=== PATIENT | female | born 1945 | race Hispanic/Latino ===

== ENCOUNTER 2024-03-04 12:57 | Emergency (ER) | payer MEDICARE ==
[~2024-03-04] VITALS: Ht 162.6 cm; Wt 90.7 kg
[~2024-03-04 12:57] MED LIST: ASPI-1197 PO; CEFU500T67 PO; KETO.5OS OD; RAMI5CAP72 PO; SIMV40TA59 PO; TRUJEO SQ
[2024-03-04 15:52] VITALS: BP 124/49; PULSE 69; RESP 16; O2SAT 98
== END 2024-03-04 15:54 | disposition home or self-care (01) ==
LOC: EDH 12:57
DX: M54.50 Low back pain, unspecified (principal); G89.29 Other chronic pain; E11.9 Type 2 diabetes mellitus without complications; I10 Essential (primary) hypertension; Z86.73 Personal history of transient ischemic attack (TIA), and cerebral infarction without residual deficits; Z79.82 Long term (current) use of aspirin; Z79.899 Other long term (current) drug therapy; Z79.2 Long term (current) use of antibiotics; Z90.49 Acquired absence of other specified parts of digestive tract; Z98.890 Other specified postprocedural states
CPT/HCPCS: 72070; 72100

== ENCOUNTER 2025-03-12 11:23 | Inpatient (IN) | payer MEDICARE ==
[~2025-03-12] VITALS: Ht 160 cm; Wt 85.3 kg
[~2025-03-12 11:23] MED LIST changes: -CEFU500T67 PO; +CEPH500B PO; +FERR325T29 PO; +INSU300I SQ; -KETO.5OS OD; +LOSA25TA41 PO; +MECL-226 PO; -RAMI5CAP72 PO; +SITA1TAB6 PO; -TRUJEO SQ; +VIT1CAPS47 PO
--- NOTE | 2025-03-12 11:31 | ERN ---
ED Note History of Present Illness Stated Complaint: ABD PAIN Chief Complaint: Abdominal Pain Time Seen by MD: 11:27 Dictation: PATIENT IS A 79-YEAR-OLD FEMALE HERE WITH HER GRANDSON WITH COMPLAINTS OF MID GASTRIC AND LEFT LOWER QUADRANT PAIN WITH NAUSEA VOMITING ONSET YESTERDAY. NO FEVER NO CHILLS NO BACK PAIN NO CHANGE IN URINATION. SHE STATES SHE HAS A HISTORY OF A PRIOR CHOLECYSTECTOMY AND, SMALL-BOWEL OBSTRUCTIONS. HER LAST SMALL-BOWEL OBSTRUCTION AT [facility] WAS DIAGNOSED/YOUR. CHEST PAIN NO BACK PAIN Allergies: Coded Allergies: No Known Allergies (Unverified Allergy, Unknown, 10/27/22) Home Meds Active Scripts Cephalexin Monohydrate (Keflex) 500 Mg Cap, 1 CAP PO BID for 7 Days, #14 CAP 0 Refills Prov:OPAL FISCHER AGPCNP 12/18/24 Reported Medications Vit C/E/Zn/Coppr/Lutein/Zeaxan (Preservision Areds 2 Softgel) 250MG-90MG Capsule, 1 EACH PO DAILY, CAP 12/16/24 Losartan Potassium (Losartan Potassium) 25 Mg Tablet, 1 TAB PO DAILY 12/16/24 Meclizine HCl (Meclizine HCl) 12.5 Mg Tablet, 1 TAB PO BID PRN for DIZZINESS 12/16/24 Ferrous Sulfate (Ferosul) 325 Mg (65 Mg Iron) Tablet, 1 TAB PO DAILY 12/16/24 Insulin Glargine,Hum.rec.anlog (Toujeo Solostar) 300 Unit/Ml (1.5 Ml) Insuln.pen, 16 UNITS SQ HS 12/16/24 Sitagliptin Phos/Metformin HCl (Janumet 50-1,000 mg Tablet) 50 Mg-1,000 Mg Tablet, 1 TAB PO BID 12/16/24 Aspirin (Aspirin) 81 Mg Tab.chew, 81 MG PO DAILY, TAB.CHEW 10/28/22 Simvastatin (ZOCOR) 40 Mg Tablet, 20 MG PO HS, TAB 10/28/22 Past Medical History Past Medical History: Diabetes-Type II, High Cholesterol, Hypertension, Stroke, UTI Additional Past Medical Hx: vertebral compressions with kyphoplasty Surgical History: Cholecystectomy, Other, BTL, Surgical History Other: bilateal cataract surgery, 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 TOE AMPUTATION Social History: Negative, Lives with family History: Not Applicable RN Note Reviewed/Agreed w/PFSH: Yes Review of System Dictation CONSTITUTIONAL: NEGATIVE EXCEPT FOR HPI HEAD/FACE: NEGATIVE EXCEPT FOR HPI EENT: NEGATIVE EXCEPT FOR HPI RESPIRATORY: NEGATIVE EXCEPT FOR HPI GASTROINTESTINAL/ABDOMINAL: NEGATIVE EXCEPT FOR HPI PERIUMBILICAL AND LEFT LOWER QUADRANT PAIN WITH NAUSEA VOMITING GENITOURINARY: NEGATIVE EXCEPT FOR HPI MUSCULOSKELETAL: NEGATIVE EXCEPT FOR HPI INTEGUMENTARY: NEGATIVE EXCEPT FOR HPI NEUROLOGICAL/PSYCH: NEGATIVE EXCEPT FOR HPI HEMATOLOGIC/LYMPHATIC: NEGATIVE EXCEPT FOR HPI ALL SYSTEMS NEGATIVE, EXCEPT NOTED ABOVE. 13 POINT REVIEW OF SYSTEMS ASSESSED AND ALL NEGATIVE EXCEPT FOR ABOVE. Initial Vital Sign VS Vital Signs Date Time Temp Pulse Resp B/P (MAP) Pulse Ox O2 Delivery O2 Flow Rate FiO2 03/12/25 11:26 97.3 76 18 91/47 96 Room Air 0 03/12/25 11:30 21 Physical Exam Dictation VITAL SIGNS REVIEWED GENERAL APPEARANCE: ALERT, ORIENTED X 3, MODERATE ACUTE DISTRESS, WELL DEVELOPED, NOURISHED. HEAD AND FACE: NON-TRAUMATIC. EYES: PERRL, PINK CONJUNCTIVAS, EYELID NO TRAUMA, ANTERIOR CHAMBER WITH ARCUS SENILIS. EARS: PINNAS INTACT AND NO SIGNS OF TRAUMA OR ERYTHEMA EAR CANALS CLEAR AND NO DISCHARGE TM NO ERYTHEMA NOSE: NO DISCHARGE, NO BLEEDING. OROPHARYNX: MOUTH NORMAL, TONGUE PINK, PHARYNX CLEAR,NO ERYTHEMA, TONSILS NO EXUDATES, NO ABSCESSES NOTED, MUCOUS MEMBRANE MOIST NECK: SUPPLE, NON-TENDER, NO THYROMEGALY, NO MASSES, NO JVD, NO BRUITS BREAST:DEFERRED CHEST:NO TENDERNESS, NO CREPITUS, NO PARADOXICAL MOVEMENT, NO RETRACTIONS LUNGS:CLEAR, WELL-VENTILATED, SYMMETRIC, NO RALES, NO WHEEZING, NO RHONCHI, NO STRIDOR, GOOD BREATH SOUNDS BILATERALLY HEART: REGULAR RATE, REGULAR RHYTHM, NO MURMUR, NO GALLOPS VASCULAR: NO PERIPHERAL EDEMA, ABDOMEN: SOFT, VERY HYPOACTIVE BOWEL SOUNDS, TENDERNESS TO PERIUMBILICAL AND RIGHT LOWER QUADRANT. RECTAL: DEFERRED GENITAL: DEFERRED NEUROLOGICAL: NORMAL SPEECH, MOTOR FUNCTION INTACT, SENSORY FUNCTION INTACT MUSCULOSKELETAL: NECK NONTENDER, FULL RANGE OF MOTION, BACK NONTENDER, FULL RANGE OF MOTION, EXTREMITIES: NONTENDER, FULL RANGE OF MOTION SKIN: COLOR PINK, DRY, NO TURGOR, NO RASH, NO LACERATIONS, NO ABRASIONS, NO CONTUSIONS. LYMPHATIC: DEFERRED Results (Laboratory/Radiology) Laboratory/Radiology Laboratory Tests Test 8/27/25 11:55 03/12/25 13:46 White Blood Count 16.1 K/uL (4.8-10.8) H Red Blood Count 4.18 MIL/uL (4.00-5.50) Hemoglobin 11.5 g/dL (12.0-16.0) L Hematocrit 35.5 % (36-48) L Mean Corpuscular Volume 84.9 fL (79-99) Mean Corpuscular Hemoglobin 27.5 pg (27.0-33.0) Mean Corpuscular Hemoglobin Concent 32.4 g/dL (32.0-36.0) Red Cell Distribution Width 15.9 % (11.0-15.5) H Platelet Count 306 K/uL (130-400) Mean Platelet Volume 10.8 fL (7.5-10.5) H Immature Granulocyte % (Auto) 0.3 % (0-1) Neutrophils (%) (Auto) 78.1 % (40.0-77.0) H Lymphocytes (%) (Auto) 14.1 % (21.0-51.0) L Monocytes (%) (Auto) 5.5 % (3.0-13.0) Eosinophils (%) (Auto) 1.7 % (0.0-8.0) Basophils (%) (Auto) 0.3 % (0.0-5.0) Neutrophils # (Auto) 12.6 K/uL (1.8-7.7) H Lymphocytes # (Auto) 2.3 K/uL (1.0-4.8) Monocytes # (Auto) 0.9 K/uL (0.1-1.0) Eosinophils # (Auto) 0.28 K/uL (0.00-0.70) Basophils # (Auto) 0.05 K/uL (0.00-0.20) Absolute Immature Granulocyte (auto 0.05 K/uL (0-1) Nucleated Red Blood Cells 0.0 % (0.0-0.19) Prothrombin Time 10.0 SEC (9.6-11.6) Prothromb Time International Ratio 0.94 (0.85-1.15) Activated Partial Thromboplast Time 22.5 SEC (26.3-35.5) L Sodium Level 140 mmol/L (136-145) Potassium Level 4.5 mmol/L (3.5-5.1) Chloride Level 103 mmol/L (101-111) Carbon Dioxide Level 24 mmol/L (21-32) Blood Urea Nitrogen 34 mg/dL (7-18) H Creatinine 1.9 mg/dL (0.5-1.0) H Glomerular Filtration Rate Calc 27 mL/min (>90) Random Glucose 211 mg/dL (70-105) H Total Calcium 9.9 mg/dL (8.5-10.1) Troponin I High Sensitivity 6 ng/L (4-50) Lactic Acid Level 1.9 mmol/L (0.8-2.5) Pancreas: Fatty replacement of the pancreas. No focal pancreatic mass or peripancreatic collection. Kidneys: Bilateral kidneys are shrunken and atrophic with significant perinephric fat stranding, likely representing chronic renal parenchymal disease. No hydronephrosis or renal mass. Urinary Bladder: Mild anterior tenting of the anterior wall of the urinary bladder, likely due to fibrotic bands from the hernial sac. No intraluminal mass or calculus. Adrenal Glands: Both adrenal glands are normal in size and morphology. Spleen: Multiple tiny, calcified lymph nodes in the perisplenic region. Abdominal Wall and Bowel: Anterior abdominal wall weakness with herniation of abdominal wall contents through weakened abdominal wall musculature. Lower ventral abdominal wall hernia, with herniation of small bowel loops and mesentery through a defect in the posterior wall of the inguinal canal. Hernial defect measures approximately 4 cm in anteroposterior dimension. Within the hernial sac, multiple dilated small bowel loops, including proximal jejunum and proximal ileal loops, with a maximum diameter of up to 4 cm. Multiple air-fluid levels within the herniated loops and in the mid-abdomen (maximum diameter 3.2 cm), suggestive of bowel obstruction. Minimal fluid collection within the hernial sac. Bowel loops distal to the hernia sac are under distended suggesting that the point of transition is at the level of the hernia (series 5, image 54). Colonic diverticulosis. No evidence of colonic wall thickening, mass, or free air. No evidence of appendicitis. Lymph Nodes: No abnormal lymphadenopathy. Mesentery: Mesentery herniated into the sac. Vasculature: Extensive atherosclerotic changes with vessel wall calcification involving the abdominal aorta, celiac artery at its ostium, and complete calcification of the splenic artery. Additional atherosclerotic calcifications along bilateral iliac vessels and visualized lower limb arteries. Musculoskeletal: Extensive degenerative changes with multilevel reduced intervertebral disc height and ossification. The visualized section of the dorsal spine shows a pedicle screw and an absent posterior element, likely post-operative. Extensive degenerative changes in the posterior elements of the lumbar spine. No destructive bony lesion or acute fracture.IMPRESSION: 1. Incarcerated ventral lower abdominal wall hernia resulting in small bowel obstruction. 2. Bilateral atrophic kidneys with perinephric fat stranding, suggestive of chronic renal parenchymal disease. 3. Cholelithiasis. 4. Extensive atherosclerosis involving abdominal aorta and major branches. 5. Fatty replacement of pancreas. 6. Colonic diverticulosis. 7. Degenerative changes of the visualized spine. 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 ED Course ED Course Orders Procedure Category Date Status Time Cbc With Differential LAB 03/12/25 Complete 11:29 Troponin I High LAB 03/12/25 Complete Sensitivity 11:29 Urinalysis Profile LAB 03/12/25 Logged 11:29 12 Lead Ekg Tracing- EKG 03/12/25 Complete Technical 11:29 0.9%Nacl 1000ml (Ns PHA 03/12/25 Complete 1000ml) 11:30 Morphine 2mg Syg PHA 03/12/25 Complete (Morphine 2mg Syg) 11:30 Ondansetron 4mg Inj PHA 03/12/25 Complete (Zofran 4mg Inj) 11:30 Basic Metabolic Panel LAB 03/12/25 Complete 11:29 Ct Abdomen/Pelvis W/O CT 03/12/25 Resulted Contrast 11:29 Morphine 4mg Syg PHA 03/12/25 Complete (Morphine 4mg Syg) 13:30 Blood Cult CARLYLE 03/12/25 In Process 13:32 Lactic Acid LAB 03/12/25 Complete 13:32 Zosyn 3.375gm+Ns 50ml PHA 03/12/25 Complete (Zosyn 3.375gm+Ns 13:32 General Surgery CONPHYS[facility] 03/12/25 Transmitted Consult 14:17 Edm Admit Bridge Order ADM 03/12/25 Transmitted 14:35 Admit Orders ADM 03/12/25 Transmitted 14:36 Lactated Ringers PHA 03/12/25 In Process 1000ml (Lactated 15:00 Keep Patient Npo CPOE 03/12/25 Transmitted 14:36 Ondansetron 4mg Inj PHA 03/12/25 In Process (Zofran 4mg Inj) 15:00 Hydromorphone 0.5mg PHA 03/12/25 In Process Syg (Dilaudid 0.5mg 15:00 Telemetry Monitoring CPOE 03/12/25 Transmitted 14:36 Nephrology Consult [facility] 03/12/25 Transmitted 14:48 Strict I&O CPOE 03/12/25 Transmitted 14:48 Acetaminophen 325 Tab PHA 03/12/25 In Process (Tylenol 325mg Tab 15:00 Zosyn 3.375gm+Ns 50ml PHA 03/12/25 In Process (Zosyn 3.375gm+Ns 21:00 Pharmacy To Renal PHA 03/12/25 In Process Dose (Renal Dose) 15:00 Initiate REID 03/12/25 In Process Hyperglycemia Protoco 14:48 Insulin Regular, PHA 03/12/25 In Process Human 3ml (Humulin R 16:30 Initiate Hypoglycemia REID 03/12/25 In Process Protocol 14:48 Dextrose 50%-Water PHA 03/12/25 In Process (D50w) 15:00 Glucagon 1mg Kit PHA 03/12/25 In Process (Glucagon 1mg Kit) 15:00 Hemoglobin A1c LAB 03/12/25 In Process 14:48 Thyroid Stimulating LAB 03/12/25 In Process Hormone 14:48 Hepatic Function Panel LAB 03/12/25 In Process 14:48 *Nursing CPOE 03/12/25 Transmitted Communication: 14:50 Thiamine Hcl (Vitamin PHA 03/13/25 In Process B-1) 09:00 Hydralazine 20mg Inj PHA 03/12/25 In Process (Apresoline 20mg In 15:00 Scd Both Legs While CPOE 03/12/25 Transmitted In Bed 14:51 Pt And Ptt LAB 03/12/25 Complete 14:57 Urinalysis Profile LAB 03/12/25 Logged 14:57 Current Medications Medications (Trade) Dose Ordered Sig/Rafael Route PRN Reason Start Time Stop Time Status Last Admin Dose Admin Acetaminophen (TYLenol 325MG TAB) 650 mg Q6H PRN PO MILD PAIN (1-3) 03/12/25 15:00 04/11/25 14:59 Dextrose (D50w) 50 ml AD PRN IV HYPOGLYCEMIA PROTOCOL 03/12/25 15:00 04/11/25 14:59 Glucagon (Glucagon 1mg Kit) 1 mg AD PRN IM HYPOGLYCEMIA PROTOCOL 03/12/25 15:00 04/11/25 14:59 Hydralazine HCl (APRESOLine 20MG INJ) 5 mg Q6H PRN IV ADMINISTER FOR SBP > 160 03/12/25 15:00 04/11/25 14:59 Hydromorphone HCl (DiLAUDid 0.5MG INJ) 0.5 mg Q6H PRN IVP SEVERE PAIN (7-10) 03/12/25 15:00 03/17/25 14:59 Insulin Human Regular (humuLIN R 100 UNIT/ML 3ML) INSULIN SLIDING SCAL... ACHS SQ 03/12/25 16:30 04/11/25 16:29 Lactated Ringer's 1,000 ml @ 80 mls/hr [id number] IV 03/12/25 15:00 04/11/25 14:59 Morphine Sulfate (morPHINE 2MG SYG) 2 mg ONCE ONCE IVP 03/12/25 11:30 03/12/25 11:31 DC 03/12/25 12:07 Morphine Sulfate (morPHINE 4MG SYG) 4 mg ONCE ONCE IVP 03/12/25 13:30 03/12/25 13:31 DC 03/12/25 13:41 Ondansetron HCl (zoFRAN 4MG INJ) 4 mg ONCE ONCE IVP 03/12/25 11:30 03/12/25 11:31 DC 03/12/25 12:07 Ondansetron HCl (zoFRAN 4MG INJ) 4 mg Q6H PRN IVP NAUSEA/VOMITING 03/12/25 15:00 04/11/25 14:59 Piperacillin Sod/ Tazobactam Sod (Zosyn 3.375gm+NS 50ml) 3.375 gm BID IVPB 03/12/25 21:00 03/22/25 20:59 Piperacillin Sod/ Tazobactam Sod (Zosyn 3.375gm+NS 50ml) 3.375 gm ONCE STAT IVPB 03/12/25 13:32 03/12/25 13:36 DC 03/12/25 13:40 Sodium Chloride 1,000 ml @ 0 mls/hr ONCE ONCE IV 03/12/25 11:30 03/12/25 11:31 DC 03/12/25 12:07 Thiamine HCl (Vitamin B-1) 100 mg DAILY IVP 03/13/25 09:00 04/12/25 08:59 Vital Signs Date Time Temp Pulse Resp B/P (MAP) Pulse Ox O2 Delivery O2 Flow Rate FiO2 03/12/25 11:30 81 20 114/52 95 Room Air* 0 21 03/12/25 11:26 97.3 76 18 91/47 96 Room Air 0 1430/CT RESULTS SHOWS IT PATIENT HAS A VENTRAL HERNIA WITH SMALL BOWEL OBSTRUCTION. PATIENT WAS PLACED IN [place] AND HERNIA WAS REDUCED. CONSULT WAS SENT TO DR. BERTHA PERRY/GENERAL SURGEON. PATIENT WAS ADMITTED TO , AFTER DISCUSSION OF EKG LABS INTERVENTIONS. 1515/s spoke with Dr perry, she said the patient pain it in a abdominal binder and NG tube to low wall suction. This information was conveyed to HEART Score Response (Comments) Value EKG: Repolarization changes 1 Age: > 65yrs (+2) 2 Risk Factors: 3+ risk factors (+2) 2 Initial Troponin: Normal limit (0) 0 Total 5 Medical Decision Making MDM MDM: DIFFERENTIAL DIAGNOSIS: DIVERTICULITIS/APPENDICITIS/INCARCERATED HERNIA/SBO/ELECTROLYTE IMBALANCE/DEHYDRATION/ACS RATIONALE: TESTS CONSIDERED AND ORDERED SECONDARY TO SHARED DECISION MAKING INCLUDE: LABS, ECG AND RADIOLOGY PREVIOUS OUTSIDE RECORDS REVIEWED: OLD ER VISITS. RISK OF COMPLICATION AND/OR MORBIDITY OR MORTALITY OF PATIENT MANAGEMENT: NONE MEDICATIONS-PER MEDICATION RECONCILIATION NEED FOR HOSPITALIZATION: PATIENT DOES MEET CRITERIA FOR HOSPITALIZATION. WE WILL NEED CONTINUE PAIN MANAGEMENT AND SURGICAL CONSULTATION FOR UMBILICAL HERNIA NEED FOR EMERGENCY MAJOR/MINOR SURGERY: NO THERE ARE NO SOCIAL CONCERNS WITH THIS PATIENT. PRESCRIPTION DRUG MANAGEMENT PRESCRIPTIONS WILL INCLUDE SYMPTOMATIC CARE PATIENT'S PRIOR EXTERNAL MEDICAL RECORDS FROM OTHER ER VISITS WERE REVIEWED BY ME INDICATED. PRIOR TESTING AND RESULTS FROM PREVIOUS VISITS WERE REVIEWED. PRIOR TESTS WERE TAKEN INTO ACCOUNT WITH MEDICAL DECISION MAKING AND RESOURCE UTILIZATION, INDEPENDENT HISTORIAN/HISTORIANS WERE USED TO OBTAIN COMPLETE MEDIC AL HISTORY. I INDEPENDENTLY INTERPRETED THE TEST THAT WERE PERFORMED, RESULTS WERE REVIEWED BY ME AND CONSIDERED FINDINGS ON RADIOLOGY IF ORDERED. MEDICAL MANAGEMENT AND EXAMINATION INTERPRETATION DISCUSSIONS WERE HAD BY ME WITH OTHER QUALIFIED HEALTHCARE PROFESSIONALS INDICATED FOR THE PATIENT'S CARE. Procedure Procedure Dictation: 1410/PROCEDURE EXPLAINED TO PATIENT AND SON THEY AGREED TO PROCEED PATIENT PLACED IN [place] POSITION VENTRAL HERNIA WAS REDUCED WITH MANUAL PRESSURE. REDUCTION WAS FELT BY PATIENT AND ASBESTOS CLOTH INSPECTOR PATIENT STATES PAIN IS IMPROVED DX & DISP Disposition: Inpatient Decision to Admit Time: 14:19 Departure Impression: Primary Impression: Incarcerated ventral hernia Additional Impressions: Small bowel obstruction, Nausea & vomiting, [id number] kidney injury, Anemia of chronic renal failure, stage 3a, Uncontrolled diabetes mellitus Condition: Stable Referrals: SELF,REFERRAL (PCP) Time of Disposition: 14:19 I have reviewed the case, and I agree with, Diagnosis and Plan RAGHAV LANIER NP Mar 12, 2025 11:31
--- NOTE | 2025-03-12 11:57 | EKG ---
[facility] Test Date: 2025-03-12 Test Time: 11:54:04 Pat Name: KENIA ORTIZ Department: [facility] Room: 316 Gender: F Size Changer: [id number] : 1945 Requested By: RAGHAV LANIER Order Number: [id number] Reading MD: Sunday Franco Measurements Intervals [place] Rate: 77 P: 32 [place]: 142 QRS: -3 QRSD: 89 T: 105 QT: 417 QTc: 472 Interpretive Statements Sinus rhythm Probable LVH with secondary repol abnrm Compared to ECG 12/15/2024 21:44:05 No significant changes Electronically Signed On 03-13-2025 05:15:38 CDT by Sunday Franco Please click the below link to view image of tracing.
[2025-03-12 12:02] LABS: IMMATURE GRANULOCYTE ABSOLUTE 0.05 K/uL (0-1); NUCLEATED RED BLOOD CELLS 0.0 % (0.0-0.19); PLATELET COUNT (AUTO) 306 K/uL (130-400); RED BLOOD CELL COUNT(AUTO) 4.18 MIL/uL (4.00-5.50); RED CELL DISTRIBUTION WIDTH 15.9 % (11.0-15.5); WHITE BLOOD COUNT (AUTO) 16.1 K/uL (4.8-10.8)
[2025-03-12] MEDS: 0.9%NACL 1000ML 1,000 ML IV ONE (12:07)
[2025-03-12 12:13] LABS: CREATININE 1.9 mg/dL (0.5-1.0); GLOMERULAR FILTR. RATE CALC 27.0 mL/min (>90); GLUCOSE,RANDOM 211.0 mg/dL (70-105); SODIUM SERUM 140.0 mmol/L (136-145); UREA NITROGEN, BLOOD 34.0 mg/dL (7-18)
[2025-03-12] MEDS: ZOSYN 3.375GM +NS 50ML IVPB STA (13:40)
--- NOTE | 2025-03-12 13:56 | HMCIMG ---
EXAM: CT abdomen and pelvis without contrast CLINICAL HISTORY: Nausea, vomiting, history of small bowel obstruction TECHNIQUE: Axial computed tomography images of the abdomen and pelvis without intravenous contrast. CONTRAST: No IV contrast. COMPARISON: CT examination dated December 15, 2024 FINDINGS: LUNG BASES: The lung bases appear clear. No pleural effusions are seen. Atherosclerosis of the coronary arteries. Liver: Tiny calcified granuloma in segment 6 of the right lobe of the liver, measuring 1 x 2 mm. No focal hepatic lesion otherwise. No intrahepatic biliary dilatation. Gallbladder and Biliary Tract: Few hyperdense foci within the gallbladder, relatively ill-defined, suggestive of cholelithiasis (USG correlation advised for confirmation). Gallbladder wall thickness is normal. No pericholecystic free fluid. Common bile duct is normal in caliber. Pancreas: Fatty replacement of the pancreas. No focal pancreatic mass or peripancreatic collection. Kidneys: Bilateral kidneys are shrunken and atrophic with significant perinephric fat stranding, likely representing chronic renal parenchymal disease. No hydronephrosis or renal mass. Urinary Bladder: Mild anterior tenting of the anterior wall of the urinary bladder, likely due to fibrotic bands from the hernial sac. No intraluminal mass or calculus. Adrenal Glands: Both adrenal glands are normal in size and morphology. Spleen: Multiple tiny, calcified lymph nodes in the perisplenic region. Abdominal Wall and Bowel: Anterior abdominal wall weakness with herniation of abdominal wall contents through weakened abdominal wall musculature. Lower ventral abdominal wall hernia, with herniation of small bowel loops and mesentery through a defect in the posterior wall of the inguinal canal. Hernial defect measures approximately 4 cm in anteroposterior dimension. Within the hernial sac, multiple dilated small bowel loops, including proximal jejunum and proximal ileal loops, with a maximum diameter of up to 4 cm. Multiple air-fluid levels within the herniated loops and in the mid-abdomen (maximum diameter 3.2 cm), suggestive of bowel obstruction. Minimal fluid collection within the hernial sac. Bowel loops distal to the hernia sac are under distended suggesting that the point of transition is at the level of the hernia (series 5, image 54). Colonic diverticulosis. No evidence of colonic wall thickening, mass, or free air. No evidence of appendicitis. Lymph Nodes: No abnormal lymphadenopathy. Mesentery: Mesentery herniated into the sac. Vasculature: Extensive atherosclerotic changes with vessel wall calcification involving the abdominal aorta, celiac artery at its ostium, and complete calcification of the splenic artery. Additional atherosclerotic calcifications along bilateral iliac vessels and visualized lower limb arteries. Musculoskeletal: Extensive degenerative changes with multilevel reduced intervertebral disc height and ossification. The visualized section of the dorsal spine shows a pedicle screw and an absent posterior element, likely post-operative. Extensive degenerative changes in the posterior elements of the lumbar spine. No destructive bony lesion or acute fracture.IMPRESSION: 1. Incarcerated ventral lower abdominal wall hernia resulting in small bowel obstruction. 2. Bilateral atrophic kidneys with perinephric fat stranding, suggestive of chronic renal parenchymal disease. 3. Cholelithiasis. 4. Extensive atherosclerosis involving abdominal aorta and major branches. 5. Fatty replacement of pancreas. 6. Colonic diverticulosis. 7. Degenerative changes of the visualized spine. /[place]
[2025-03-12] MEDS ORDERED: DEXTROSE 50%-WATER 50 ML DISP.SYRIN IV PRN (15:00)
[2025-03-12] MEDS ORDERED: RENAL DOSE IV SCH (15:00)
[2025-03-12] MEDS ORDERED: GLUCAGON 1MG KIT 1 MG ML IM PRN (15:00)
[2025-03-12 15:12] LABS: INR 0.94 (0.85-1.15)
[2025-03-12 15:21] LABS: ASPARTATE AMINOTRANSFERASE 18.0 U/L (10-37); TOTAL PROTEIN, SERUM 7.0 g/dL (6.0-8.3)
[2025-03-12] MEDS: LACTATED RINGERS 1000ML 1,000 ML IV SCH (16:08)
--- NOTE | 2025-03-12 17:11 | HP ---
[facility] HISTORY [facility] PHYSICAL Date of Service: Mar 12, 2025 Time of Service: 17:03 HISTORY OF PRESENT ILLNESS: Date of service: 03/12/2025, patient was seen in ER hallway A, This is a 79-year-old female with history of hypertension, hyperlipidemia, type 2 diabetes mellitus, history of stroke in 1988 with residual lower extremity weakness and known history of abdominal hernia who presented to the ER for f urther evaluation of acute onset of nausea, vomiting and abdominal pain. Symptoms started earlier this morning and has been progressive. Grandson, present at bedside states that patient has had multiple episodes of vomiting this morning. Last bowel movement was yesterday. Patient has a known history of abdominal hernia and is followed by Dr. Sosa as outpatient. Due to underly ing medical comorbidities and age, patient has held off on elective repair of the hernia. Pain this morning was 6-7/10 in intensity. Per ER provider, abdominal hernia was manually reduced in the ER today. Patient had a noncontrast CT of the abdomen pelvis done which showed incarcerated ventral lower abdominal wall hernia with small-bowel obstruction. [place] [address], hemoglobin of 11.5, platelet count of 305343. BMP remarkable for sodium of 140, potassium 4.5, creatinine of 1.9, blood glucose of 211. Patient will be admitted to hospitalist service. Consultation with General surgery has been obtained with Dr. Dueñas, NG tube will be placed for decompression and patient will be started on IV fluids and IV antibiotics. We w ill see how patient progresses in the next 24-48 hours closely. REVIEW OF SYSTEMS CONSTITUTIONAL: Denies fevers, chills, or night sweats. No unintentional weight loss reported. NEUROLOGICAL: Denies headache, amaurosis fugax, motor weakness, sensory deficit, vertigo/spinning sensation, gait abnormalities, or tremors. ENT: No hearing loss, otalgia, otorrhea, rhinitis, rhinorrhea, hoarseness, or sore throat. CARDIOVASCULAR: Denies any exertional angina, dyspnea on exertion, orthopnea, paroxysmal nocturnal dyspnea, palpitations, life-threatening arrhythmias, claudication. PULMONARY: Denies any shortness of breath, cough, phlegm/sputum, hemoptysis, pleuritic chest pain. SLEEP: Denies morning headaches, daytime somnolence or napping. Denies difficulty falling asleep, staying asleep, waking from sleep. Denies knowledge of snoring. GASTROINTESTINAL: nausea, vomiting, pain around the abdominal hernia site that started today GENITOURINARY: Denies frequency, urgency, nocturia, hematuria or incontinence (Storage/Irritative symptoms.) Low urinary stream, straining to void, urinary intermittency or hesitancy, splitting of the voiding stream, terminal dribbling. ENDOCRINOLOGIC: Denies polyuria, polydipsia, polyphagia or heat/cold intolerances. HEMATOLOGIC: Denies thrombophilia/previous clots, or coagulopathy/bleeding disorders. ONCOLOGIC: Denies personal history of malignancy. DERMATOLOGIC: Denies rashes or pruritus. PSYCHIATRIC: Denies any suicidal or homicidal ideation. Denies hallucinations. PAST MEDICAL HISTORY: Hypertension, hyperlipidemia, type 2 diabetes mellitus, prior history of stroke in 1988 with residual lower extremity weakness, history of prior bowel obstruction from incarcerated abdominal hernia, history of UTI, history of chronic anemia PAST SURGICAL HISTORY: Cholecystectomy, BTL, , bilateral cataract surgery, right 4th toe amputation. PAST SOCIAL HISTORY: Denied alcohol, tobacco, illicit drug use. FAMILY HISTORY: Obesity Allergies: No known drug allergies Home medications: Family will be bringing list of home medications to be reconciled and updated, reports being on Lantus 16 units at bedtime Coded Allergies: No Known Allergies (Unverified Allergy, Unknown, 10/27/22) PHYSICAL EXAM GENERAL APPEARANCE: The patient is awake, alert, and oriented, in no acute cardiopulmonary distress. NEUROLOGICAL: Cranial nerves II-XII grossly intact. Motor is 5/5 in bilateral upper and lower extremities proximal to distal. No sensory deficits. HEENT: Face is symmetric. Pupils are equal and reactive. Extraocular movements are intact. NECK: Supple. No JVD. No thyromegaly. No submental, submandibular, pre-/postauricular, occipital or supraclavicular lymphadenopathy. CHEST: Normal chest expansion. No Telemetry. LUNGS: Absence of any rales, rhonchi or any wheezing. CARDIOVASCULAR: Regular. S1 and S2 normal. No appreciable rubs, murmurs or gallops. ABDOMEN: Soft, patient noted to have ventral hernia that appears erythematous, and mildly tender to palpation, bowel sounds are normoactive : Deferred. No [place]. EXTREMITIES: Non-edematous and not cyanotic. No clubbing. Good capillary refill. SKIN: No skin breakdown. Vital Sign (Last 24 Hours) 03/12/25 03/12/25 11:26 11:30 Temp 97.3 Pulse 81 Resp 20 B/P (MAP) 114/52 Pulse Ox 95 O2 Delivery Room Air* O2 Flow Rate 0 FiO2 21 LABS: Laboratory: Test 03/12/25 16:50 03/12/25 13:46 03/12/25 11:55 Range/Units Whole Blood Glucose 209 H 70-110 MG/DL Lactic Acid Level 1.9 0.8-2.5 mmol/L Total Bilirubin 0.5 0.2-1.0 mg/dL Direct Bilirubin 0.2 0.0-0.3 mg/dL Aspartate Amino Transf (AST/SGOT) 18 10-37 U/L Alanine Aminotransferase (ALT/SGPT) 21 12-78 U/L Alkaline Phosphatase 110 50-136 U/L Total Protein 7.0 6.0-8.3 g/dL Albumin 3.6 3.5-5.0 g/dL Thyroid Stimulating Hormone (TSH) 3.84 H 0.36-3.74 uIU/mL White Blood Count 16.1 H 4.8-10.8 K/uL Red Blood Count 4.18 4.00-5.50 MIL/uL Hemoglobin 11.5 L 12.0-16.0 g/dL Hematocrit 35.5 L 36-48 % Mean Corpuscular Volume 84.9 79-99 fL Mean Corpuscular Hemoglobin 27.5 27.0-33.0 pg Mean Corpuscular Hemoglobin Concent 32.4 32.0-36.0 g/dL Red Cell Distribution Width 15.9 H 11.0-15.5 % Platelet Count 306 130-400 K/uL Mean Platelet Volume 10.8 H 7.5-10.5 fL Immature Granulocyte % (Auto) 0.3 0-1 % Neutrophils (%) (Auto) 78.1 H 40.0-77.0 % Lymphocytes (%) (Auto) 14.1 L 21.0-51.0 % Monocytes (%) (Auto) 5.5 3.0-13.0 % Eosinophils (%) (Auto) 1.7 0.0-8.0 % Basophils (%) (Auto) 0.3 0.0-5.0 % Neutrophils # (Auto) 12.6 H 1.8-7.7 K/uL Lymphocytes # (Auto) 2.3 1.0-4.8 K/uL Monocytes # (Auto) 0.9 0.1-1.0 K/uL Eosinophils # (Auto) 0.28 0.00-0.70 K/uL Basophils # (Auto) 0.05 0.00-0.20 K/uL Absolute Immature Granulocyte (auto 0.05 0-1 K/uL Nucleated Red Blood Cells 0.0 0.0-0.19 % Prothrombin Time 10.0 9.6-11.6 SEC Prothromb Time International Ratio 0.94 0.85-1.15 Activated Partial Thromboplast Time 22.5 L 26.3-35.5 SEC Sodium Level 140 136-145 mmol/L Potassium Level 4.5 3.5-5.1 mmol/L Chloride Level 103 101-111 mmol/L Carbon Dioxide Level 24 21-32 mmol/L Blood Urea Nitrogen 34 H 7-18 mg/dL Creatinine 1.9 H 0.5-1.0 mg/dL Glomerular Filtration Rate Calc 27 >90 mL/min Random Glucose 211 H 70-105 mg/dL Hemoglobin A1c 7.4 H 4.0-6.0 % Estimated Average Glucose (eAG) 166 H 70-126 mg/dL Total Calcium 9.9 8.5-10.1 mg/dL Troponin I High Sensitivity 6 4-50 ng/L Current Medications Medications (Trade) Dose Ordered Sig/Rafael Route PRN Reason Start Time Stop Time Status Last Admin Dose Admin Acetaminophen (TYLenol 325MG TAB) 650 mg Q6H PRN PO MILD PAIN (1-3) 03/12/25 15:00 04/11/25 14:59 Dextrose (D50w) 50 ml AD PRN IV HYPOGLYCEMIA PROTOCOL 03/12/25 15:00 04/11/25 14:59 Glucagon (Glucagon 1mg Kit) 1 mg AD PRN IM HYPOGLYCEMIA PROTOCOL 03/12/25 15:00 04/11/25 14:59 Hydralazine HCl (APRESOLine 20MG INJ) 5 mg Q6H PRN IV ADMINISTER FOR SBP > 160 03/12/25 15:00 04/11/25 14:59 Hydromorphone HCl (DiLAUDid 0.5MG INJ) 0.5 mg Q6H PRN IVP SEVERE PAIN (7-10) 03/12/25 15:00 03/17/25 14:59 Insulin Human Regular (humuLIN R 100 UNIT/ML 3ML) INSULIN SLIDING SCAL... ACHS SQ 03/12/25 16:30 04/11/25 16:29 Lactated Ringer's 1,000 ml @ 80 mls/hr [id number] IV 03/12/25 15:00 04/11/25 14:59 03/12/25 16:08 80 MLS/HR Ondansetron HCl (zoFRAN 4MG INJ) 4 mg Q6H PRN IVP NAUSEA/VOMITING 03/12/25 15:00 04/11/25 14:59 Piperacillin Sod/ Tazobactam Sod (Zosyn 3.375gm+NS 50ml) 3.375 gm BID IVPB 03/12/25 21:00 03/22/25 20:59 Piperacillin Sod/ Tazobactam Sod (Zosyn 3.375gm+NS 50ml) 3.375 gm ONCE STAT IVPB 03/12/25 13:32 03/12/25 13:36 DC 03/12/25 13:40 3.375 GM Thiamine HCl (Vitamin B-1) 100 mg DAILY IVP 03/13/25 09:00 04/12/25 08:59 DIAGNOSTICS / RADIOLOGY: PROCEDURE: ABD PEL WO - CT ABDOMEN/PELVIS W/O CONTRAST ADDENDUM REPORT ADDENDUM: Results were shared by telephone at 15:00 pm on 03/12/25 and acknowledged by Bairon Cannon. /[place] EXAM: CT abdomen and pelvis without contrast CLINICAL HISTORY: Nausea, vomiting, history of small bowel obstruction TECHNIQUE: Axial computed tomography images of the abdomen and pelvis without intravenous contrast. CONTRAST: No IV contrast. COMPARISON: CT examination dated December 15, 2024 FINDINGS: LUNG BASES: The lung bases appear clear. No pleural effusions are seen. Atherosclerosis of the coronary arteries. Liver: Tiny calcified granuloma in segment 6 of the right lobe of the liver, measuring 1 x 2 mm. No focal hepatic lesion otherwise. No intrahepatic biliary dilatation. Gallbladder and Biliary Tract: Few hyperdense foci within the gallbladder, relatively ill-defined, suggestive of cholelithiasis (USG correlation advised for confirmation). Gallbladder wall thickness is normal. No pericholecystic free fluid. Common bile duct is normal in caliber. Pancreas: Fatty replacement of the pancreas. No focal pancreatic mass or peripancreatic collection. Kidneys: Bilateral kidneys are shrunken and atrophic with significant perinephric fat stranding, likely representing chronic renal parenchymal disease. No hydronephrosis or renal mass. Urinary Bladder: Mild anterior tenting of the anterior wall of the urinary bladder, likely due to fibrotic bands from the hernial sac. No intraluminal mass or calculus. Adrenal Glands: Both adrenal glands are normal in size and morphology. Spleen: Multiple tiny, calcified lymph nodes in the perisplenic region. Abdominal Wall and Bowel: Anterior abdominal wall weakness with herniation of abdominal wall contents through weakened abdominal wall musculature. Lower ventral abdominal wall hernia, with herniation of small bowel loops and mesentery through a defect in the posterior wall of the inguinal canal. Hernial defect measures approximately 4 cm in anteroposterior dimension. Within the hernial sac, multiple dilated small bowel loops, including proximal jejunum and proximal ileal loops, with a maximum diameter of up to 4 cm. Multiple air-fluid levels within the herniated loops and in the mid-abdomen (maximum diameter 3.2 cm), suggestive of bowel obstruction. Minimal fluid collection within the hernial sac. Bowel loops distal to the hernia sac are under distended suggesting that the point of transition is at the level of the hernia (series 5, image 54). Colonic diverticulosis. No evidence of colonic wall thickening, mass, or free air. No evidence of appendicitis. Lymph Nodes: No abnormal lymphadenopathy. Mesentery: Mesentery herniated into the sac. Vasculature: Extensive atherosclerotic changes with vessel wall calcification involving the abdominal aorta, celiac artery at its ostium, and complete calcification of the splenic artery. Additional atherosclerotic calcifications along bilateral iliac vessels and visualized lower limb arteries. Musculoskeletal: Extensive degenerative changes with multilevel reduced intervertebral disc height and ossification. The visualized section of the dorsal spine shows a pedicle screw and an absent posterior element, likely post-operative. Extensive degenerative changes in the posterior elements of the lumbar spine. No destructive bony lesion or acute fracture.IMPRESSION: 1. Incarcerated ventral lower abdominal wall hernia resulting in small bowel obstruction. 2. Bilateral atrophic kidneys with perinephric fat stranding, suggestive of chronic renal parenchymal disease. 3. Cholelithiasis. 4. Extensive atherosclerosis involving abdominal aorta and major branches. 5. Fatty replacement of pancreas. 6. Colonic diverticulosis. 7. Degenerative changes of the visualized spine. /[place] ASSESSMENT: Small-bowel obstruction secondary to incarcerated lower abdominal wall hernia, POA Leukocytosis, POA ЮЛИЯ on CKD, POA Dehydration, POA Poor vascular access, POA Prior history of bowel obstruction secondary to abdominal hernia, POA History of hypertension, POA Hyperlipidemia, POA Type 2 diabetes mellitus, POA Prior history of stroke in 1988 with residual lower extremity weakness, POA History of vertebral compression fracture with prior history of kyphoplasty, POA PLAN: Patient will be admitted to cardiac telemetry floor Patient will be kept strictly NPO NG tube will be placed to low intermittent wall suction We will start patient on LR at 80 mL/hours We will keep patient on IV Zosyn empirically, we will follow up in urinalysis to rule out active UTI Midline will be placed to as patient is poor vascular access Consultation with Dr. Dueñas requested, manual reduction of the hernia was attempted in the ER with improvement of abdominal pain per patient We will keep patient on GI prophylaxis Protonix Patient will be placed on abdominal binder We will see how patient progresses in the next 24-48 hours, we will monitor hernia site closely, we will assess for resolution of bowel obstruction, abdominal x-ray will be repeated in the morning All labs will repeated in the morning, we will monitor renal function closely, avoid any NSAIDs or contrast, all medications will be renally dosed Date of service: 03/12/2025 Plan of care was discussed with patient and grandson at bedside, Alec Stewart MD Advanced Care Planning: Which of the following were discussed: Hospice care: Yes __ No _X_ Therapeutic options: Yes _X_ No __ Advance directives: Yes __X No __ Other discussions: Discussed with who?: Patient Voluntary nature of this service was explained to the patient? Yes _x_ No __ Amount of time spent: 20 minutes ALEC STEWART MD Mar 12, 2025 17:11
--- NOTE | 2025-03-12 17:28 | HMCIMG ---
EXAM: CR Chest, 2 View. CLINICAL HISTORY: VERIFY NG TUBE PLACEMENT COMPARISON: None provided. FINDINGS: LUNGS: No active infiltrate PLEURAL SPACES: No evidence of pleural effusion or pneumothorax. MEDIASTINUM: Cardiac silhouette prominent BONES: No aggressive appearing osseous lesion seen. MISCELLANEOUS: Nasogastric tube below diaphragm. Distal tip not imaged IMPRESSION: 1. Cardiac silhouette prominent 2. No active infiltrate 3. Nasogastric tube below diaphragm. Distal tip not imaged /[place]
--- NOTE | 2025-03-12 17:41 | CONS ---
CONSULT NOTE: Consulting physician: ER Consulting service: General surgery Reason for consultation: Incarcerated umbilical hernia History of present illness: This is a 79-year-old female with a medical history listed below that has been consulted to surgery for concerns of incarcerated umbilical hernia. Hernia initially reduced ER. Patient reporting significant improvement of pain. On physical exam reduction appears to be partial but pain significantly improved according to patient. Patient is still reporting no flatus. Patient reports a 30 history of abdominal hernia noted. NG tube currently pending by nursing for placement. On admission patient with a white count of 16 with a hemoglobin 11.5. Patient currently NPO. Patient is unsure last bowel movement. Patient reports multiple episodes where discomfort from hernia noted. Medical history: Hypertension, hyperlipidemia, type 2 diabetes mellitus, prior history of stroke in 1988 with residual lower extremity weakness, history of prior bowel obstruction from incarcerated abdominal hernia, history of UTI, history of chronic anemia PAST SURGICAL HISTORY: Cholecystectomy, BTL, , bilateral cataract surgery, right 4th toe amputation. PAST SOCIAL HISTORY: Denied alcohol, tobacco, illicit drug use. FAMILY HISTORY: Obesity Review of systems: General: No Fever, No Chills, No Night Sweats, No Fatigue, No Malaise, No Appetite, No Other HEENT: No Head Aches, No Visual Changes, No Eye Pain, No Ear Pain, No Dysphasia, No Sinus Congestion, No Post Nasal Drip, No Sore Throat, No Other Pulmonary: No Dyspnea, No Cough, No Pleuritic Chest Pain, No Other Cardiovascular: No: Chest Pain, Palpitations, Orthopnea, Paroxysmal No Dyspnea, Edema, Lt Headedness, Other Gastrointestinal: No: Nausea, Vomiting, Diarrhea, Constipation, Melena, Hematochezia, Other Genitourinary: No Dysuria, No Frequency, No Incontinence, No Hematuria, No Retention, No Other Musculoskeletal: No: other, neck pain, shoulder pain, arm pain, back pain, hand pain, leg pain, foot pain Skin: No Urticaria, No Rash, No Other Neurological: No: Weakness, Numbness, Incoordination, Change in speech, Confusion, Seizures, Other Physical exam: General: Awake alert and oriented Heart: Regular rate and rhythm} Lungs: [Clear to auscultation no distress Abdomen: Distended with a umbilical hernia nontender possibly still incarcerated IMPRESSION: 1. Incarcerated ventral lower abdominal wall hernia resulting in small bowel obstruction. 2. Bilateral atrophic kidneys with perinephric fat stranding, suggestive of chronic renal parenchymal disease. 3. Cholelithiasis. 4. Extensive atherosclerosis involving abdominal aorta and major branches. 5. Fatty replacement of pancreas. 6. Colonic diverticulosis. 7. Degenerative changes of the visualized spine. Assessment: This is a 79-year-old female with concerns of incarcerated umbilical hernia Plan: This point in time with partial reduction we will continue with conservative management NG tube to be placed in place to LIS Patient to be made NPO Await for bowel function to return If surgical intervention needed patient will need cardiac clearance Dr. Dueñas has been updated in patient's status and surgical team will follow patient closely. Thank you for the consultation MILI SIGALA Jr. Mar 12, 2025 17:41
[2025-03-12 20:00] VITALS: BP 116/44; PULSE 97; RESP 19; TEMP 97.8
[2025-03-12] MEDS: ZOSYN 3.375GM +NS 50ML IVPB SCH (20:08)
[2025-03-12 22:35] VITALS: BP 120/61; PULSE 98; RESP 17; TEMP 97.7
[2025-03-12 22:50] VITALS: BP 135/55; PULSE 80; RESP 18; TEMP 98
[2025-03-13] VITALS (9 sets, daily range): BP systolic 114–145; BP diastolic 50–62; PULSE 70–81; RESP 16–20; TEMP 97.6–98.2; O2SAT 93–94
[2025-03-13] MEDS ORDERED: SIMV-43 PO (03:36)
[2025-03-13 06:39] LABS: ASPARTATE AMINOTRANSFERASE 18.0 U/L (10-37); CREATININE 1.4 mg/dL (0.5-1.0); GLOMERULAR FILTR. RATE CALC 39.0 mL/min (>90); GLUCOSE,RANDOM 156.0 mg/dL (70-105); PHOSPHORUS 3.6 mg/dL (2.5-4.9); SODIUM SERUM 141.0 mmol/L (136-145); TOTAL PROTEIN, SERUM 6.2 g/dL (6.0-8.3); UREA NITROGEN, BLOOD 33.0 mg/dL (7-18)
[2025-03-13 07:46] LABS: IMMATURE GRANULOCYTE ABSOLUTE 0.02 K/uL (0-1); NUCLEATED RED BLOOD CELLS 0.0 % (0.0-0.19); PLATELET COUNT (AUTO) 260 K/uL (130-400); RED BLOOD CELL COUNT(AUTO) 3.44 MIL/uL (4.00-5.50); RED CELL DISTRIBUTION WIDTH 15.8 % (11.0-15.5); WHITE BLOOD COUNT (AUTO) 10.2 K/uL (4.8-10.8)
[2025-03-13] MEDS: THIAMINE HCL 100 MG/ML 2ML VIAL IVP SCH (08:19)
--- NOTE | 2025-03-13 09:01 | CONS ---
NEPHROLOGY CONSULTATION REASON FOR CONSULTATION: Renal failure. This patient has elevated BUN and creatinine. HISTORY OF PRESENT ILLNESS: This patient has multiple medical problems. The patient is 79-year-old lady who has history of type 2 diabetes, hypertension, hyperlipidemia, previous stroke, right-sided weakness, abdominal hernia. The patient is admitted with nausea, vomiting, abdominal pain, suspected intestinal obstruction. The patient has elevated BUN and creatinine. The patient has mild leukocytosis and multiple other comorbidities. PAST MEDICAL HISTORY: Significant for as above with diabetes, hypertension, hyperlipidemia, stroke, intestinal obstruction in the past, UTI, anemia. PAST SURGICAL HISTORY: Tubal ligation, , cataract surgery, toe amputation, cholecystectomy. SOCIAL HISTORY: No smoking, alcohol, or drug abuse reported. FAMILY HISTORY: Unremarkable for present contacts. ALLERGIES: No allergies. HOME MEDICATIONS: As listed. REVIEW OF SYSTEMS: CONSTITUTIONAL: The patient has been weak with no fever, chills, or rigors. HEENT: With no headache. No oral ulcers, sore throat or difficulty swallowing. RESPIRATORY: With no cough, expectoration, hemoptysis or pleuritic pain. CARDIOVASCULAR: Has shortness of breath. No orthopnea or PND. GASTROINTESTINAL: Negative for nausea, vomiting or diarrhea reported. GENITOURINARY: Negative for dysuria or hematuria. DERMATOLOGIC: No rashes or pruritus. NEUROLOGIC: No seizure or syncope. ENDOCRINE: No polyuria, polydipsia, or polyphagia. PSYCHIATRIC: Negative for anxiety, depression or hallucination. NEUROLOGIC: Previous stroke reported. Other systemic review is unchanged. PHYSICAL EXAMINATION: GENERAL: Elderly lying in bed. No other distress or deformities. VITAL SIGNS: Blood pressure is 114/52. Pulse is 81. Respiratory rate is 20. HEENT: Head is atraumatic, normocephalic. Pupils are round and reactive. Sclerae anicteric. Conjunctivae not pale. Oral mucosa is not dry. NECK: Supple with no masses or bruits. Thyroid is palpable. Neck has no bruits. CHEST: Shows equal to thoracic percussion note being resonant in all areas. CARDIAC: Regular rhythm. No rub. No S3 or S4. No parasternal heave. Apical beat is not localized. ABDOMEN: With no guarding, tenderness. Bowel sounds normoactive. No free fluid. EXTREMITIES: With no edema. No cyanosis or clubbing. BACK: No CVA tenderness or back deformities. NEUROLOGIC: Awake, alert, nonfocal. No cranial nerve palsy. LABORATORY DATA: We have reviewed available labs in detail. Labs have shown elevated creatinine of 1.9 and BUN of 40. Old records reviewed. labs interpreted_ personally reviewed. DIAGNOSTIC STUDIES: CT scan has been done without any IV contrast, findings of hernia. Chest x-ray has been reviewed and CT scan. Calcified granuloma in the right lobe of the liver. Some atrophic kidneys. No lymphadenopathy. Hernia was enlarged and the patient has cholelithiasis. Old records have been reviewed. Imaging studies personally reviewed. PROBLEMS: Include: * The patient has acute renal failure. * The patient has intestinal obstruction. * Underlying diabetic nephropathy. * Underlying hypertension. * Anemia. * Leukocytosis. * Underlying hyperlipidemia. * History of stroke. * Small bowel obstruction. * Peripheral vascular disease. * Residual weakness because of stroke and back pain before. PLAN: * At this time, the patient is being admitted. * Urinalysis. * IV hydration. * Urine electrolytes and osmolarity. * Follow up CBC, CMP. * Labs, x-rays, and imaging studies personally reviewed and interpreted. * Nonsteroidal drug to be avoided. * Medication dosage to be adjusted. * The patient's IV contrast should be avoided as far as possible. * The patient will have a followup on urine output, electrolyte, renal function and overall status. * IV Dilaudid for severe pain 0.5 mg every 6 hours. * We have discussed with other team physicians and we have reviewed the external and old records in detail. * Condition is critical and guarded. * We will have close followup. * NG tube has been placed. * Surgical consult has been ordered and please avoid other nephrotoxic insults. Doses of medicine should be adjusted. * Avoid nephrotoxic antibiotics. Thank you for this challenging patient. TID: [id number] RECEIPT: [id number] [facility]
--- NOTE | 2025-03-13 09:11 | PN ---
[facility] PROGRESS NOTE Date of Service: Mar 13, 2025 Time of Service: 09:02 SUBJECTIVE: [ ] This is a 79-year-old female with history of hypertension, hyperlipidemia, type 2 diabetes mellitus, history of stroke in 1988 with residual lower extremity weakness and known history of abdominal hernia who presented to the ER for further evaluation of acute onset of nausea, vomiting and abdominal pain. Symptoms started earlier this morning and has been progressive. Grandson, present at bedside states that patient has had multiple episodes of vomiting this morning. Last bowel movement was yesterday. Patient has a known history of abdominal hernia and is followed by Dr. Sosa as outpatient. Due to underlying medical comorbidities and age, patient has held off on elective repair of the hernia. 03/13/25 the patient was evaluated by surgical services: they will continue with conservative management: Surgeon remove NG tube we will start patient on diet we will be monitored. Patient appears chronically ill, no family at bedside REVIEW OF SYSTEMS CONSTITUTIONAL: Denies fevers, chills, or night sweats. No unintentional weight loss reported. NEUROLOGICAL: Denies headache, amaurosis fugax, motor weakness, sensory deficit, vertigo/spinning sensation, gait abnormalities, or tremors. ENT: No hearing loss, otalgia, otorrhea, rhinitis, rhinorrhea, hoarseness, or sore throat. CARDIOVASCULAR: Denies any exertional angina, dyspnea on exertion, orthopnea, paroxysmal nocturnal dyspnea, palpitations, life-threatening arrhythmias, claudication. PULMONARY: Denies any shortness of breath, cough, phlegm/sputum, hemoptysis, pleuritic chest pain. SLEEP: Denies morning headaches, daytime somnolence or napping. Denies difficulty falling asleep, staying asleep, waking from sleep. Denies knowledge of snoring. GASTROINTESTINAL: nausea, vomiting, pain around the abdominal hernia site that started today GENITOURINARY: Denies frequency, urgency, nocturia, hematuria or incontinence (Storage/Irritative symptoms.) Low urinary stream, straining to void, urinary intermittency or hesitancy, splitting of the voiding stream, terminal dribbling. ENDOCRINOLOGIC: Denies polyuria, polydipsia, polyphagia or heat/cold intolerances. HEMATOLOGIC: Denies thrombophilia/previous clots, or coagulopathy/bleeding disorders. ONCOLOGIC: Denies personal history of malignancy. DERMATOLOGIC: Denies rashes or pruritus. PSYCHIATRIC: Denies any suicidal or homicidal ideation. Denies hallucinations. PHYSICAL EXAM GENERAL APPEARANCE: The patient is awake, alert, and oriented, in no acute cardiopulmonary distress. NEUROLOGICAL: Cranial nerves II-XII grossly intact. Motor is 5/5 in bilateral upper and lower extremities proximal to distal. No sensory deficits. HEENT: Face is symmetric. Pupils are equal and reactive. Extraocular movements are intact. NECK: Supple. No JVD. No thyromegaly. No submental, submandibular, pre-/posta uricular, occipital or supraclavicular lymphadenopathy. CHEST: Normal chest expansion. No Telemetry. LUNGS: Absence of any rales, rhonchi or any wheezing. CARDIOVASCULAR: Regular. S1 and S2 normal. No appreciable rubs, murmurs or gallops. ABDOMEN: Soft, patient noted to have ventral hernia that appears erythematous, and mildly tender to palpation, bowel sounds are normoactive : Deferred. No Boswell. EXTREMITIES: Non-edematous and not cyanotic. No clubbing. Good capillary refill. SKIN: No skin breakdown. Vital Signs (last 8hr) Date Time Temp Pulse Resp B/P (MAP) Pulse Ox O2 Delivery O2 Flow Rate FiO2 03/13/25 08:00 98.1 78 17 141/52 91 Room Air 03/13/25 04:25 97.9 77 20 126/56 95 Room Air LABS: Laboratory: Test 03/13/25 06:12 03/13/25 05:28 03/12/25 13:46 03/12/25 11:55 Range/Units White Blood Count 10.2 # 4.8-10.8 K/uL Red Blood Count 3.44 L 4.00-5.50 MIL/uL Hemoglobin 9.4 L 12.0-16.0 g/dL Hematocrit 28.8 L 36-48 % Mean Corpuscular Volume 83.7 79-99 fL Mean Corpuscular Hemoglobin 27.3 27.0-33.0 pg Mean Corpuscular Hemoglobin Concent 32.6 32.0-36.0 g/dL Red Cell Distribution Width 15.8 H 11.0-15.5 % Platelet Count 260 130-400 K/uL Mean Platelet Volume 11.2 H 7.5-10.5 fL Immature Granulocyte % (Auto) 0.2 0-1 % Neutrophils (%) (Auto) 70.4 40.0-77.0 % Lymphocytes (%) (Auto) 20.1 L 21.0-51.0 % Monocytes (%) (Auto) 8.2 3.0-13.0 % Eosinophils (%) (Auto) 0.7 0.0-8.0 % Basophils (%) (Auto) 0.4 0.0-5.0 % Neutrophils # (Auto) 7.2 1.8-7.7 K/uL Lymphocytes # (Auto) 2.1 1.0-4.8 K/uL Monocytes # (Auto) 0.8 0.1-1.0 K/uL Eosinophils # (Auto) 0.07 0.00-0.70 K/uL Basophils # (Auto) 0.04 0.00-0.20 K/uL Absolute Immature Granulocyte (auto 0.02 0-1 K/uL Nucleated Red Blood Cells 0.0 0.0-0.19 % Sodium Level 141 136-145 mmol/L Potassium Level 4.3 3.5-5.1 mmol/L Chloride Level 108 101-111 mmol/L Carbon Dioxide Level 23 21-32 mmol/L Blood Urea Nitrogen 33 H 7-18 mg/dL Creatinine 1.4 H 0.5-1.0 mg/dL Glomerular Filtration Rate Calc 39 >90 mL/min Random Glucose 156 H 70-105 mg/dL Total Calcium 8.8 8.5-10.1 mg/dL Phosphorus Level 3.6 2.5-4.9 mg/dL Magnesium Level 1.90 1.80-2.40 mg/dL Total Bilirubin 0.9 # 0.2-1.0 mg/dL Aspartate Amino Transf (AST/SGOT) 18 10-37 U/L Alanine Aminotransferase (ALT/SGPT) 12 # 12-78 U/L Alkaline Phosphatase 82 # 50-136 U/L Total Protein 6.2 6.0-8.3 g/dL Albumin 3.1 L 3.5-5.0 g/dL Whole Blood Glucose 143 H 70-110 MG/DL Lactic Acid Level 1.9 0.8-2.5 mmol/L Direct Bilirubin 0.2 0.0-0.3 mg/dL Thyroid Stimulating Hormone (TSH) 3.84 H 0.36-3.74 uIU/mL Prothrombin Time 10.0 9.6-11.6 SEC Prothromb Time International Ratio 0.94 0.85-1.15 Activated Partial Thromboplast Time 22.5 L 26.3-35.5 SEC Hemoglobin A1c 7.4 H 4.0-6.0 % Estimated Average Glucose (eAG) 166 H 70-126 mg/dL Troponin I High Sensitivity 6 4-50 ng/L Current Medications Medications (Trade) Dose Ordered Sig/Rafael Route PRN Reason Start Time Stop Time Status Last Admin Dose Admin Acetaminophen (TYLenol 325MG TAB) 650 mg Q6H PRN PO MILD PAIN (1-3) 03/12/25 15:00 04/11/25 14:59 Dextrose (D50w) 50 ml AD PRN IV HYPOGLYCEMIA PROTOCOL 03/12/25 15:00 04/11/25 14:59 Glucagon (Glucagon 1mg Kit) 1 mg AD PRN IM HYPOGLYCEMIA PROTOCOL 03/12/25 15:00 04/11/25 14:59 Heparin Sodium (Porcine) (HEParin 5,000 UNIT VIAL) 5,000 unit Q12H SQ 03/13/25 09:00 04/12/25 08:59 03/13/25 08:19 5,000 UNIT Hydralazine HCl (APRESOLine 20MG INJ) 5 mg Q6H PRN IV ADMINISTER FOR SBP > 160 03/12/25 15:00 04/11/25 14:59 Hydromorphone HCl (DiLAUDid 0.5MG INJ) 0.5 mg Q6H PRN IVP SEVERE PAIN (7-10) 03/12/25 15:00 03/17/25 14:59 Insulin Human Regular (humuLIN R 100 UNIT/ML 3ML) INSULIN SLIDING SCAL... ACHS SQ 03/12/25 16:30 04/11/25 16:29 03/12/25 17:05 3 UNIT Lactated Ringer's 1,000 ml @ 80 mls/hr [id number] IV 03/12/25 15:00 04/11/25 14:59 03/13/25 08:24 80 MLS/HR Ondansetron HCl (zoFRAN 4MG INJ) 4 mg Q6H PRN IVP NAUSEA/VOMITING 03/12/25 15:00 04/11/25 14:59 03/12/25 23:29 4 MG Pantoprazole Sodium (PROTonix 40MG INJ) 40 mg Q24H IVP 03/12/25 17:00 04/11/25 16:59 03/12/25 17:30 40 MG Piperacillin Sod/ Tazobactam Sod (Zosyn 3.375gm+NS 50ml) 3.375 gm BID IVPB 03/12/25 21:00 03/22/25 20:59 03/13/25 08:19 3.375 GM Piperacillin Sod/ Tazobactam Sod (Zosyn 3.375gm+NS 50ml) 3.375 gm ONCE STAT IVPB 03/12/25 13:32 03/12/25 13:36 DC 03/12/25 13:40 3.375 GM Thiamine HCl (Vitamin B-1) 100 mg DAILY IVP 03/13/25 09:00 04/12/25 08:59 03/13/25 08:19 100 MG DIAGNOSTICS / RADIOLOGY: [ ] ASSESSMENT: Small-bowel obstruction secondary to incarcerated lower abdominal wall hernia, POA Leukocytosis, POA resolved ЮЛИЯ on CKD, POA improving Dehydration, POA Poor vascular access, POA Prior history of bowel obstruction secondary to abdominal hernia, POA History of hypertension, POA Hyperlipidemia, POA Type 2 diabetes mellitus, POA Prior history of stroke in 1988 with residual lower extremity weakness, POA History of vertebral compression fracture with prior history of kyphoplasty, POA PLAN: admit: medical surgical floor with Tele assessment consultant: General Surgeon Diet: Urgent started patient on clear liquid diet and we will be monitored Aspiration precautions head of the bed at 45 continue with abd. binder Procedure: at this time conservative management: IVF: LR at 80 ml/hr Antibiotic; IV Zosyn empirically Microbiology: Urine culture in process. Labs in am ongoing surveillance of electrolyte derangement: replaced as per protocol GI prophylaxis Protonix all questions answered ATTESTATION BY PHYSICIAN I have seen and examined the patient. I reviewed the documentation, medical decision making, and treatment plan as noted by the mid-level provider above. I agree with the findings and plan of care. ROGE BRAXTON MD, ELIZABETH NP Mar 13, 2025 09:11
--- NOTE | 2025-03-13 09:42 | NUR ---
DCP:HOME Pt currently lives at home with her son Luis Galeas [phone]. Pt does have a cane and walker that she uses to ambulate. Pt does have [facility] home [facility] that visit her once a week to check her vitals. Pt states that she is able to complete ADLs independently. PCP is Dr. Alexander Watkins and uses [facility] for any RX needs. At PR pt will want to go home and family can assist with transportation. Addendum: 03/13/25 at 0944 by REGINO NIEVES SS Amended: Links added.
--- NOTE | 2025-03-13 10:00 | NUR ---
ROUNDS ANGELA GARCES ROUNDED AT BEDSIDE. VORB DISCONTINUE NG TUBE AND START PATIENT ON CLEAR LIQUID DIET. PER MILI, WILL CONSULT WITH MD REGARDING OUTPATIENT SURGERY. NO FURTHER ORDERS GIVEN. WILL CONTINUE TO MONITOR.
--- NOTE | 2025-03-13 11:00 | PN ---
This is a 79-year-old female consulted to surgery for concerns of incarcerated hernia Interval history: This 79-year-old female seen in her room No abdominal pain reported today Patient reports large bowel movement overnight and in the morning NG in place with minimal output Patient reports she feels significantly better WBCs 10.2 with a hemoglobin 9.4 KUB pending Physical exam General: Awake alert and oriented Heart: Regular rate and rhythm} Lungs: [Clear to auscultation no distress Abdomen: [Noted hernia nontender with no signs of obstruction Assessment : This is a 79-year-old female consulted to surgery for concerns of incarcerated umbilical hernia with no signs of obstruction at this time Plan: From surgical standpoint we will await KUB findings and if unremarkable for obstruction NG tube to be removed and patient to be started on clear liquids Patient requesting potential outpatient evaluation for elective surgical intervention if possible Patient made aware that she will need to tolerate diet with no pain before clearance for outpatient follow up Dr. Dueñas to be updated in patient's status and surgical team to follow patient closely Vitals/Labs Vital Signs Date Time Temp Pulse Resp B/P (MAP) Pulse Ox O2 Delivery O2 Flow Rate FiO2 03/13/25 08:00 98.1 78 17 141/52 91 Room Air 03/12/25 23:40 0 21 Laboratory Tests 03/12/25 11:55 03/13/25 06:12 Medications Current Medications Sodium Chloride 1,000 ml @ 0 mls/hr ONCE ONCE IV Last administered on 03/12/25at 12:07; Start 03/12/25 at 11:30; Stop 03/12/25 at 11:31; Status DC Morphine Sulfate 2 mg ONCE ONCE IVP Last administered on 03/12/25at 12:07; Start 03/12/25 at 11:30; Stop 03/12/25 at 11:31; Status DC Ondansetron HCl 4 mg ONCE ONCE IVP Last administered on 03/12/25at 12:07; Start 03/12/25 at 11:30; Stop 03/12/25 at 11:31; Status DC Morphine Sulfate 4 mg ONCE ONCE IVP Last administered on 03/12/25at 13:41; Start 03/12/25 at 13:30; Stop 03/12/25 at 13:31; Status DC Piperacillin Sod/ Tazobactam Sod 3.375 gm ONCE STAT IVPB Last administered on 03/12/25at 13:40; Start 03/12/25 at 13:32; Stop 03/12/25 at 13:36; Status DC Lactated Ringer's 1,000 ml @ 80 mls/hr [id number] IV Last administered on 03/13/25at 08:24; Start 03/12/25 at 15:00; Stop 04/11/25 at 14:59 Ondansetron HCl 4 mg Q6H PRN IVP Last administered on 03/12/25at 23:29; Start 03/12/25 at 15:00; Stop 04/11/25 at 14:59 Hydromorphone HCl 0.5 mg Q6H PRN IVP; Start 03/12/25 at 15:00; Stop 03/17/25 at 14:59 Acetaminophen 650 mg Q6H PRN PO; Start 03/12/25 at 15:00; Stop 04/11/25 at 14:59 Piperacillin Sod/ Tazobactam Sod 3.375 gm BID IVPB Last administered on 03/13/25at 08:19; Start 03/12/25 at 21:00; Stop 03/22/25 at 20:59 Insulin Human Regular INSULIN SLIDING SCAL... ACHS SQ Last administered on 03/12/25at 17:05; Start 03/12/25 at 16:30; Stop 04/11/25 at 16:29 Dextrose 50 ml AD PRN IV; Start 03/12/25 at 15:00; Stop 04/11/25 at 14:59 Glucagon 1 mg AD PRN IM; Start 03/12/25 at 15:00; Stop 04/11/25 at 14:59 Thiamine HCl 100 mg DAILY IVP Last administered on 03/13/25at 08:19; Start 03/13/25 at 09:00; Stop 04/12/25 at 08:59 Hydralazine HCl 5 mg Q6H PRN IV; Start 03/12/25 at 15:00; Stop 04/11/25 at 14:59 Pantoprazole Sodium 40 mg Q24H IVP Last administered on 03/12/25at 17:30; Start 03/12/25 at 17:00; Stop 04/11/25 at 16:59 Heparin Sodium (Porcine) 5,000 unit Q12H SQ Last administered on 03/13/25at 08:19; Start 03/13/25 at 09:00; Stop 04/12/25 at 08:59 Magnesium Sulfate 50 ml @ 0 mls/hr PROTOCOL PRN IV; Start 03/13/25 at 09:30; Stop 04/12/25 at 09:29 Potassium Chloride 100 ml @ 50 mls/hr AD PRN IV; Start 03/13/25 at 09:30; Stop 04/12/25 at 09:29 MILI SIGALA Jr. Mar 13, 2025 11:00
--- NOTE | 2025-03-13 12:07 | HMCIMG ---
ABD 1VW REASON: assess bowel obstruction, abdominal hernia COMPARISON: Prior study from 12/17/2024 is available. FINDINGS: Single image of the abdomen was obtained. Bowel gas pattern is normal. Bones and soft tissues appear unremarkable. There are no abnormal calcifications. There is no evidence of foreign body. There are spinal rods in the thoracic spine interpedicular screws seen at the edges study. There is mild osteopenia of the bony thorax. IMPRESSION: 1. Nonspecific gas pattern.
--- NOTE | 2025-03-13 14:12 | NUR ---
NG TUBE 1030 NG TUBE DISCONTINUED ORDERED BY . TIP INTACT, PATIENT TOLERATED WELL.
--- NOTE | 2025-03-13 16:40 | NUR ---
REPORT RECEIVED FROM NIKOLAS RN TO ASSUME CARE OF THIS PATIENT.
--- NOTE | 2025-03-13 16:40 | NUR ---
CHANGE IN NURSE REPORT GIVEN TO LUCILA BAY REGARDING PATIENT'S CONDITION, PENDING MD'S ORDERS AND HX. VOICED UNDERSTANDING.
--- NOTE | 2025-03-13 21:34 | CONS ---
NEPHROLOGY FOLLOWUP CONSULTATION This patient has renal failure. The patient has also hypertension, hyperlipidemia, diabetes, previous stroke. The patient is admitted with abdominal hernia and intestinal obstruction. Followed up by the surgeon. The patient is on conservative management. Previously was on NG tube, which has been removed. All the other systemic review is unchanged. REVIEW OF SYSTEMS: GENERAL: With no fevers, chills, rigors. HEENT: With no headache, no oral ulcer, sore throat or difficulty swallowing. RESPIRATORY: With no cough expectoration, hemoptysis or pleuritic pain. CARDIOVASCULAR: No orthopnea or PND. GASTROINTESTINAL: No nausea, vomiting or diarrhea. GENITOURINARY: No dysuria or hematuria. DERMATOLOGICAL: No rashes or pruritus. NEUROLOGIC: No seizure or syncope. Her previous stroke reported. ENDOCRINE: No polyuria, polydipsia or polyphagia. PHYSICAL EXAMINATION: GENERAL: Pale, sick looking, lying in bed. VITAL SIGNS: Blood pressure is 126/56, pulse is 77, respiratory rate is 20. HEENT: Head is atraumatic, normocephalic. Pupils are round and reactive. Sclerae are anicteric. Conjunctivae not pale. Oral mucosa is not dry. NECK: Supple with no masses or bruits. Thyroid is palpable. Neck has no bruits. CHEST: Shows equal thoracic percussion note being resonant in all areas. CARDIAC: Regular rhythm. No rub. No S3, S4. No parasternal heave. ABDOMEN: No guarding or tenderness. Bowel sounds present. No free fluid. EXTREMITIES: With no edema. No cyanosis, clubbing. BACK: No tenderness. No back deformities. LABORATORY DATA: We have reviewed available labs in detail. Labs have shown hemoglobin went down to 9.4. Creatinine is 1.4, BUN of 133. IMAGING STUDIES: Personally reviewed. CT scan has been done and reviewed. Old records reviewed. The patient has atrophic kidneys. PROBLEMS: * Acute on chronic renal failure. * Intestinal obstruction. * Abdominal hernia. ____ elderly patient who has multiple other comorbidities, electrolyte problem, worsening anemia. PLAN: * I will suggest to maintain hydration. * The patient's NG tube now removed. Follow up on blood pressure and electrolyte. Patient is being initiated on diet. The patient's lab and x-rays personally reviewed. We have discussed with the team members. * History of previous stroke, diabetes, hypertension present. We will need followup. Please avoid contrast, nonsteroidal drugs. Adjust doses of medicine. Low-dose Dilaudid 0.5 mg q. 6 for pain. We will continue monitoring. We have ordered the followup labs including CBC, CMP and other electrolytes. We will be monitoring closely. Condition is critical and guarded. The patient was seen several times today. Thank you for this patient. TID: [id number] RECEIPT: [id number]
[2025-03-13] MEDS ORDERED: BISMUTH SUBSALICYLATE PO PRN (22:30)
[2025-03-14 03:59] VITALS: BP 127/60; PULSE 69; RESP 12; TEMP 98.3
[2025-03-14 06:00] LABS: IMMATURE GRANULOCYTE ABSOLUTE 0.03 K/uL (0-1); NUCLEATED RED BLOOD CELLS 0.0 % (0.0-0.19); PLATELET COUNT (AUTO) 230 K/uL (130-400); RED BLOOD CELL COUNT(AUTO) 3.24 MIL/uL (4.00-5.50); RED CELL DISTRIBUTION WIDTH 15.9 % (11.0-15.5); WHITE BLOOD COUNT (AUTO) 9.9 K/uL (4.8-10.8)
[2025-03-14 06:29] LABS: % IRON SATURATION 21.6 % (22-44); IRON, SERUM 46.0 mcg/dL (50-170)
[2025-03-14 07:18] LABS: ASPARTATE AMINOTRANSFERASE 19.0 U/L (10-37); CREATININE 1.2 mg/dL (0.5-1.0); GLOMERULAR FILTR. RATE CALC 47.0 mL/min (>90); GLUCOSE,RANDOM 131.0 mg/dL (70-105); SODIUM SERUM 138.0 mmol/L (136-145); TOTAL PROTEIN, SERUM 5.8 g/dL (6.0-8.3); UREA NITROGEN, BLOOD 24.0 mg/dL (7-18)
[2025-03-14] MEDS: MAGNESIUM 2GM PREMIX 50ML 50 ML IV PRN (07:26)
[2025-03-14 08:08] VITALS: BP 124/61; PULSE 68; RESP 17; TEMP 98
--- NOTE | 2025-03-14 08:08 | PN ---
[facility] PROGRESS NOTE Date of Service: Mar 14, 2025 Time of Service: 08:08 SUBJECTIVE: [ ] This is a 79-year-old female with history of hypertension, hyperlipidemia, type 2 diabetes mellitus, history of stroke in 1988 with residual lower extremity weakness and known history of abdominal hernia who presented to the ER for further evaluation of acute onset of nausea, vomiting and abdominal pain. Symptoms started earlier this morning and has been progressive. Grandson, present at bedside states that patient has had multiple episodes of vomiting this morning. Last bowel movement was yesterday. Patient has a known history of abdominal hernia and is followed by Dr. Sosa as outpatient. Due to underlying medical comorbidities and age, patient has held off on elective repair of the hernia. 03/13/25 the patient was evaluated by surgical services: they will continue with conservative management: Surgeon remove NG tube we will start patient on diet we will be monitored. Patient appears chronically ill, no family at bedside 03/14 NGT removed yesterday: Patient is tolerating clear liquid diet she reports no nausea or vomiting no reflux. Patient requesting to get out of bed to chair we will order physical therapy. Waiting for surgeon recommendations at this point we continue with conservative management possible discharge next 24 hours REVIEW OF SYSTEMS CONSTITUTIONAL: Denies fevers, chills, or night sweats. No unintentional weight loss reported. NEUROLOGICAL: Denies headache, amaurosis fugax, motor weakness, sensory deficit, vertigo/spinning sensation, gait abnormalities, or tremors. ENT: No hearing loss, otalgia, otorrhea, rhinitis, rhinorrhea, hoarseness, or sore throat. CARDIOVASCULAR: Denies any exertional angina, dyspnea on exertion, orthopnea, paroxysmal nocturnal dyspnea, palpitations, life-threatening arrhythmias, claudication. PULMONARY: Denies any shortness of breath, cough, phlegm/sputum, hemoptysis, pleuritic chest pain. SLEEP: Denies morning headaches, daytime somnolence or napping. Denies difficulty falling asleep, staying asleep, waking from sleep. Denies knowledge of snoring. GASTROINTESTINAL: nausea, vomiting, pain around the abdominal hernia site that started today GENITOURINARY: Denies frequency, urgency, nocturia, hematuria or incontinence (Storage/Irritative symptoms.) Low urinary stream, straining to void, urinary intermittency or hesitancy, splitting of the voiding stream, terminal dribbling. ENDOCRINOLOGIC: Denies polyuria, polydipsia, polyphagia or heat/cold intolerances. HEMATOLOGIC: Denies thrombophilia/previous clots, or coagulopathy/bleeding disorders. ONCOLOGIC: Denies personal history of malignancy. DERMATOLOGIC: Denies rashes or pruritus. PSYCHIATRIC: Denies any suicidal or homicidal ideation. Denies hallucinations. PHYSICAL EXAM GENERAL APPEARANCE: The patient is awake, alert, and oriented, in no acute cardiopulmonary distress. NEUROLOGICAL: Cranial nerves II-XII grossly intact. Motor is 5/5 in bilateral upper and lower extremities proximal to distal. No sensory deficits. HEENT: Face is symmetric. Pupils are equal and reactive. Extraocular movements are intact. NECK: Supple. No JVD. No thyromegaly. No submental, submandibular, pre- /postauricular, occipital or supraclavicular lymphadenopathy. CHEST: Normal chest expansion. No Telemetry. LUNGS: Absence of any rales, rhonchi or any wheezing. CARDIOVASCULAR: Regular. S1 and S2 normal. No appreciable rubs, murmurs or gallops. ABDOMEN: Soft, patient noted to have ventral hernia that appears erythematous, and mildly tender to palpation, bowel sounds are normoactive : Deferred. No Boswell. EXTREMITIES: Non-edematous and not cyanotic. No clubbing. Good capillary refill. SKIN: No skin breakdown. Vital Signs (last 8hr) Date Time Temp Pulse Resp B/P (MAP) Pulse Ox O2 Delivery O2 Flow Rate FiO2 03/14/25 03:59 98.2 69 12 127/60 94 Room Air LABS: Laboratory: Test 03/14/25 05:13 03/14/25 04:56 03/13/25 06:12 03/12/25 13:46 Range/Units Whole Blood Glucose 132 H 70-110 MG/DL White Blood Count 9.9 4.8-10.8 K/uL Red Blood Count 3.24 L 4.00-5.50 MIL/uL Hemoglobin 8.8 L 12.0-16.0 g/dL Hematocrit 27.8 L 36-48 % Mean Corpuscular Volume 85.8 79-99 fL Mean Corpuscular Hemoglobin 27.2 27.0-33.0 pg Mean Corpuscular Hemoglobin Concent 31.7 L 32.0-36.0 g/dL Red Cell Distribution Width 15.9 H 11.0-15.5 % Platelet Count 230 130-400 K/uL Mean Platelet Volume 11.2 H 7.5-10.5 fL Immature Granulocyte % (Auto) 0.3 0-1 % Neutrophils (%) (Auto) 64.6 40.0-77.0 % Lymphocytes (%) (Auto) 23.5 21.0-51.0 % Monocytes (%) (Auto) 6.0 3.0-13.0 % Eosinophils (%) (Auto) 5.1 0.0-8.0 % Basophils (%) (Auto) 0.5 0.0-5.0 % Neutrophils # (Auto) 6.4 1.8-7.7 K/uL Lymphocytes # (Auto) 2.3 1.0-4.8 K/uL Monocytes # (Auto) 0.6 0.1-1.0 K/uL Eosinophils # (Auto) 0.51 0.00-0.70 K/uL Basophils # (Auto) 0.05 0.00-0.20 K/uL Absolute Immature Granulocyte (auto 0.03 0-1 K/uL Nucleated Red Blood Cells 0.0 0.0-0.19 % Reticulocyte Count (auto) 1.44791 0.42-2.23 % Immature Reticulocyte Fraction 15.80 H 0.18-0.48 % Sodium Level 138 136-145 mmol/L Potassium Level 4.0 3.5-5.1 mmol/L Chloride Level 107 101-111 mmol/L Carbon Dioxide Level 26 21-32 mmol/L Blood Urea Nitrogen 24 H 7-18 mg/dL Creatinine 1.2 H 0.5-1.0 mg/dL Glomerular Filtration Rate Calc 47 >90 mL/min Random Glucose 131 H 70-105 mg/dL Total Calcium 8.3 L 8.5-10.1 mg/dL Magnesium Level 1.80 1.80-2.40 mg/dL Iron Level 46 L 50-170 mcg/dL Total Iron Binding Capacity 212 L 250-450 mcg/dL Percent Iron Saturation 21.6 L 22-44 % Ferritin 63 15-150 ng/mL Total Bilirubin 0.7 # 0.2-1.0 mg/dL Aspartate Amino Transf (AST/SGOT) 19 10-37 U/L Alanine Aminotransferase (ALT/SGPT) 17 # 12-78 U/L Alkaline Phosphatase 74 50-136 U/L Total Protein 5.8 L 6.0-8.3 g/dL Albumin 2.8 L 3.5-5.0 g/dL Vitamin B12 Level 236 193-986 pg/mL Folic Acid (LAB) 11.80 2-20 ng/mL Phosphorus Level 3.6 2.5-4.9 mg/dL Lactic Acid Level 1.9 0.8-2.5 mmol/L Direct Bilirubin 0.2 0.0-0.3 mg/dL Thyroid Stimulating Hormone (TSH) 3.84 H 0.36-3.74 uIU/mL Test 03/12/25 11:55 Range/Units Prothrombin Time 10.0 9.6-11.6 SEC Prothromb Time International Ratio 0.94 0.85-1.15 Activated Partial Thromboplast Time 22.5 L 26.3-35.5 SEC Hemoglobin A1c 7.4 H 4.0-6.0 % Estimated Average Glucose (eAG) 166 H 70-126 mg/dL Troponin I High Sensitivity 6 4-50 ng/L Current Medications Medications (Trade) Dose Ordered Sig/Rafael Route PRN Reason Start Time Stop Time Status Last Admin Dose Admin Acetaminophen (TYLenol 325MG TAB) 650 mg Q6H PRN PO MILD PAIN (1-3) 03/12/25 15:00 04/11/25 14:59 Aspirin (Aspirin 81mg Chew Tab) 81 mg DAILY PO 03/14/25 09:00 04/13/25 08:59 Bismuth Subsalicylate (Pepto-Bismol) 30 mg Q6H PRN PO DIARRHEA 03/13/25 22:30 04/12/25 22:29 Dextrose (D50w) 50 ml AD PRN IV HYPOGLYCEMIA PROTOCOL 03/12/25 15:00 04/11/25 14:59 Glucagon (Glucagon 1mg Kit) 1 mg AD PRN IM HYPOGLYCEMIA PROTOCOL 03/12/25 15:00 04/11/25 14:59 Heparin Sodium (Porcine) (HEParin 5,000 UNIT VIAL) 5,000 unit Q12H SQ 03/13/25 09:00 04/12/25 08:59 03/13/25 21:47 5,000 UNIT Home Med (Home Medication) (Vit C/E/Zn/ Coppr/Lutein/ Per... DAILY PO 03/14/25 09:00 04/13/25 08:59 Hydralazine HCl (APRESOLine 20MG INJ) 5 mg Q6H PRN IV ADMINISTER FOR SBP > 160 03/12/25 15:00 04/11/25 14:59 Hydromorphone HCl (DiLAUDid 0.5MG INJ) 0.5 mg Q6H PRN IVP SEVERE PAIN (7-10) 03/12/25 15:00 03/17/25 14:59 Insulin Human Regular (humuLIN R 100 UNIT/ML 3ML) INSULIN SLIDING SCAL... ACHS SQ 03/12/25 16:30 04/11/25 16:29 03/12/25 17:05 3 UNIT Lactated Ringer's 1,000 ml @ 80 mls/hr [id number] IV 03/12/25 15:00 04/11/25 14:59 03/13/25 21:51 80 MLS/HR Losartan Potassium (CozAAR 25MG TAB) 25 mg DAILY PO 03/14/25 09:00 04/13/25 08:59 Magnesium Sulfate 50 ml @ 0 mls/hr PROTOCOL PRN IV low mag level 03/13/25 09:30 04/12/25 09:29 03/14/25 07:26 25 MLS/HR Ondansetron HCl (zoFRAN 4MG INJ) 4 mg Q6H PRN IVP NAUSEA/VOMITING 03/12/25 15:00 04/11/25 14:59 03/12/25 23:29 4 MG Pantoprazole Sodium (PROTonix 40MG INJ) 40 mg Q24H IVP 03/12/25 17:00 04/11/25 16:59 03/13/25 17:11 40 MG Piperacillin Sod/ Tazobactam Sod (Zosyn 3.375gm+NS 50ml) 3.375 gm BID IVPB 03/12/25 21:00 03/22/25 20:59 03/13/25 21:35 3.375 GM Piperacillin Sod/ Tazobactam Sod (Zosyn 3.375gm+NS 50ml) 3.375 gm ONCE STAT IVPB 03/12/25 13:32 03/12/25 13:36 DC 03/12/25 13:40 3.375 GM Potassium Chloride 100 ml @ 50 mls/hr AD PRN IV POTASSIUM PROTOCOL 03/13/25 09:30 04/12/25 09:29 Simvastatin (zoCOR) 20 mg HS PO 03/13/25 21:00 04/12/25 20:59 03/13/25 21:35 20 MG Thiamine HCl (Vitamin B-1) 100 mg DAILY IVP 03/13/25 09:00 04/12/25 08:59 03/13/25 08:19 100 MG DIAGNOSTICS / RADIOLOGY: [ ] ASSESSMENT: Small-bowel obstruction secondary to incarcerated lower abdominal wall hernia, POA Leukocytosis, POA resolved ЮЛИЯ on CKD, POA improving Dehydration, POA Poor vascular access, POA Prior history of bowel obstruction secondary to abdominal hernia, POA History of hypertension, POA Hyperlipidemia, POA Type 2 diabetes mellitus, POA Prior history of stroke in 1988 with residual lower extremity weakness, POA History of vertebral compression fracture with prior history of kyphoplasty, POA PLAN: admit: medical surgical floor with Tele exchange consultant: General Surgeon Diet: Clear liquid diet advanced per surgeon Aspiration precautions head of the bed at 45 continue with abd. binder Procedure: at this time conservative management: IVF Hep-Lock Antibiotic; IV Zosyn empirically Microbiology: Urine culture in process. Labs in am ongoing surveillance of electrolyte derangement: replaced as per protocol PT services out of bed to chair patient uses walker to ambulate GI prophylaxis Protonix all questions answered ATTESTATION BY PHYSICIAN I have seen and examined the patient. I reviewed the documentation, medical decision making, and treatment plan as noted by the mid-level provider above. I agree with the findings and plan of care. ROGE BRAXTON MD, ELIZABETH NP Mar 14, 2025 08:08
[2025-03-14] MEDS ORDERED: COMPOUND IV MISC 1 EACH IVSOLN MISC PRN (08:30)
[2025-03-14] MEDS: ASPIRIN 81MG CHEW TAB PO SCH (08:50)
[2025-03-14] MEDS: [UNRECOGNIZED DRUG - OTHER] PO SCH (09:00)
[2025-03-14 12:13] VITALS: BP 117/67; PULSE 62; RESP 17; TEMP 98.1
[2025-03-14 16:00] VITALS: BP 135/66; PULSE 66; RESP 17; TEMP 97.7
--- NOTE | 2025-03-14 16:07 | PN ---
This is a 79-year-old female with improving abdominal discomfort with large ventral hernia Interval history: This 79-year-old female seen in her room resting tolerating diet No abdominal pain reported Multiple bowel movements noted Patient overall showing significant improvement with no signs of obstruction Physical exam General: Awake alert and oriented Heart: Regular rate and rhythm} Lungs: Clear to auscultation no distress Abdomen: [Soft, nontender, nondistended continued hernia noted Assessment : This is a 79-year-old female with large abdominal hernia with a resolving small- bowel obstruction Plan: Surgical standpoint patient is cleared to advance diet Surgical intervention to be done in outpatient setting Patient made aware of plan and agrees Once patient is cleared by medical team patient is cleared from surgical standpoint for discharge Recommendation will be for two week follow up with Dr. Dueñas is office Vitals/Labs Vital Signs Date Time Temp Pulse Resp B/P (MAP) Pulse Ox O2 Delivery O2 Flow Rate FiO2 03/14/25 12:13 98.1 62 17 117/67 93 Room Air 03/14/25 07:30 0 21 Laboratory Tests 03/14/25 04:56 Medications Current Medications Sodium Chloride 1,000 ml @ 0 mls/hr ONCE ONCE IV Last administered on 03/12/25at 12:07; Start 03/12/25 at 11:30; Stop 03/12/25 at 11:31; Status DC Morphine Sulfate 2 mg ONCE ONCE IVP Last administered on 03/12/25at 12:07; Start 03/12/25 at 11:30; Stop 03/12/25 at 11:31; Status DC Ondansetron HCl 4 mg ONCE ONCE IVP Last administered on 03/12/25at 12:07; Start 03/12/25 at 11:30; Stop 03/12/25 at 11:31; Status DC Morphine Sulfate 4 mg ONCE ONCE IVP Last administered on 03/12/25at 13:41; Start 03/12/25 at 13:30; Stop 03/12/25 at 13:31; Status DC Piperacillin Sod/ Tazobactam Sod 3.375 gm ONCE STAT IVPB Last administered on 03/12/25at 13:40; Start 03/12/25 at 13:32; Stop 03/12/25 at 13:36; Status DC Lactated Ringer's 1,000 ml @ 80 mls/hr [id number] IV Last administered on 03/13/25at 21:51; Start 03/12/25 at 15:00; Stop 04/11/25 at 14:59 Ondansetron HCl 4 mg Q6H PRN IVP Last administered on 03/12/25at 23:29; Start 03/12/25 at 15:00; Stop 04/11/25 at 14:59 Hydromorphone HCl 0.5 mg Q6H PRN IVP; Start 03/12/25 at 15:00; Stop 03/17/25 at 14:59 Acetaminophen 650 mg Q6H PRN PO; Start 03/12/25 at 15:00; Stop 04/11/25 at 14:59 Piperacillin Sod/ Tazobactam Sod 3.375 gm BID IVPB Last administered on 03/14/25at 08:50; Start 03/12/25 at 21:00; Stop 03/22/25 at 20:59 Insulin Human Regular INSULIN SLIDING SCAL... ACHS SQ Last administered on 03/12/25at 17:05; Start 03/12/25 at 16:30; Stop 04/11/25 at 16:29 Dextrose 50 ml AD PRN IV; Start 03/12/25 at 15:00; Stop 04/11/25 at 14:59 Glucagon 1 mg AD PRN IM; Start 03/12/25 at 15:00; Stop 04/11/25 at 14:59 Thiamine HCl 100 mg DAILY IVP Last administered on 03/14/25at 08:50; Start 03/13/25 at 09:00; Stop 04/12/25 at 08:59 Hydralazine HCl 5 mg Q6H PRN IV; Start 03/12/25 at 15:00; Stop 04/11/25 at 14:59 Pantoprazole Sodium 40 mg Q24H IVP Last administered on 03/13/25at 17:11; Start 03/12/25 at 17:00; Stop 04/11/25 at 16:59 Heparin Sodium (Porcine) 5,000 unit Q12H SQ Last administered on 03/14/25at 08:59; Start 03/13/25 at 09:00; Stop 04/12/25 at 08:59 Magnesium Sulfate 50 ml @ 0 mls/hr PROTOCOL PRN IV Last administered on 03/14/25at 07:26; Start 03/13/25 at 09:30; Stop 04/12/25 at 09:29 Potassium Chloride 100 ml @ 50 mls/hr AD PRN IV; Start 03/13/25 at 09:30; Stop 04/12/25 at 09:29 Aspirin 81 mg DAILY PO Last administered on 03/14/25at 08:50; Start 03/14/25 at 09:00; Stop 04/13/25 at 08:59 Losartan Potassium 25 mg DAILY PO Last administered on 03/14/25at 08:50; Start 03/14/25 at 09:00; Stop 04/13/25 at 08:59 Simvastatin 20 mg HS PO Last administered on 03/13/25at 21:35; Start 03/13/25 at 21:00; Stop 04/12/25 at 20:59 Home Med (Vit C/E/Zn/ Coppr/Lutein/ Per... DAILY PO; Start 03/14/25 at 09:00; Stop 04/13/25 at 08:59 Bismuth Subsalicylate 30 mg Q6H PRN PO; Start 03/13/25 at 22:30; Stop 04/12/25 at 22:29 Iron Sucrose 300 mg/Sodium Chloride 250 ml @ 83 mls/hr ONCE ONCE IV; Start 03/14/25 at 21:00; Stop 03/15/25 at 00:00 MILI SIGALA Jr. Mar 14, 2025 16:07
--- NOTE | 2025-03-14 17:18 | DS ---
Discharge Summary Hospital Course Summary: This is a 79-year-old female with history of hypertension, hyperlipidemia, type 2 diabetes mellitus, history of stroke in 1988 with residual lower extremity weakness and known history of abdominal hernia who presented to the ER for further evaluation of acute onset of nausea, vomiting and abdominal pain. Sy mptoms started earlier this morning and has been progressive. Grandson, present at bedside states that patient has had multiple episodes of vomiting this morning. Last bowel movement was yesterday. Patient has a known history of abdominal hernia and is followed by Dr. Sosa as outpatient. Due to underlying medical comorbidities and age, patient has held off on elective repair of the hernia. 03/13/25 the patient was evaluated by surgical services: they will continue with conservative management: Surgeon remove NG tube we will start patient on diet we will be monitored. Patient appears chronically ill, no family at bedside 03/14 NGT removed yesterday: Patient is tolerating clear liquid diet she reports no nausea or vomiting no reflux. Patient requesting to get out of bed to chair we will order physical therapy. Waiting for surgeon recommendations at this point we continue with conservative management possible discharge next 24 hours Patient was cleared by general surgeon okay to go home patient to follow-up in one-week plan to do surgery outpatient setting. Patient agree and will follow- up as directed. Patient tolerating diet no nausea no vomiting no reflux. Blood transfusion given on this admission patient received one dose of IV [id number] mg IV. He is hemodynamically stable for discharge. Procedure(s): REASON: MID GASTRIC PAIN WITH NAUSEA VOMITING. HISTORY OF SBO WO PER LYDIA GFR 27 ORDERING PHYSICIAN: RAGHAV LANIER NP PROCEDURE: ABD PEL WO - CT ABDOMEN/PELVIS W/O CONTRAST ADDENDUM REPORT ADDENDUM: Results were shared by telephone at 15:00 pm on 03/12/25 and acknowledged by Raghav Cannon. /[place] EXAM: CT abdomen and pelvis without contrast CLINICAL HISTORY: Nausea, vomiting, history of small bowel obstruction TECHNIQUE: Axial computed tomography images of the abdomen and pelvis without intravenous contrast. CONTRAST: No IV contrast. COMPARISON: CT examination dated December 15, 2024 FINDINGS: LUNG BASES: The lung bases appear clear. No pleural effusions are seen. Atherosclerosis of the coronary arteries. Liver: Tiny calcified granuloma in segment 6 of the right lobe of the liver, measuring 1 x 2 mm. No focal hepatic lesion otherwise. No intrahepatic biliary dilatation. Gallbladder and Biliary Tract: Few hyperdense foci within the gallbladder, relatively ill-defined, suggestive of cholelithiasis (USG correlation advised for confirmation). Gallbladder wall thickness is normal. No pericholecystic free fluid. Common bile duct is normal in caliber. Pancreas: Fatty replacement of the pancreas. No focal pancreatic mass or peripancreatic collection. Kidneys: Bilateral kidneys are shrunken and atrophic with significant perinephric fat stranding, likely representing chronic renal parenchymal disease. No hydronephrosis or renal mass. Urinary Bladder: Mild anterior tenting of the anterior wall of the urinary bladder, likely due to fibrotic bands from the hernial sac. No intraluminal mass or calculus. Adrenal Glands: Both adrenal glands are normal in size and morphology. Spleen: Multiple tiny, calcified lymph nodes in the perisplenic region. Abdominal Wall and Bowel: Anterior abdominal wall weakness with herniation of abdominal wall contents through weakened abdominal wall musculature. Lower ventral abdominal wall hernia, with herniation of small bowel loops and mesentery through a defect in the posterior wall of the inguinal canal. Hernial defect measures approximately 4 cm in anteroposterior dimension. Within the hernial sac, multiple dilated small bowel loops, including proximal jejunum and proximal ileal loops, with a maximum diameter of up to 4 cm. Multiple air-fluid levels within the herniated loops and in the mid-abdomen (maximum diameter 3.2 cm), suggestive of bowel obstruction. Minimal fluid collection within the hernial sac. Bowel loops distal to the hernia sac are under distended suggesting that the point of transition is at the level of the hernia (series 5, image 54). Colonic diverticulosis. No evidence of colonic wall thickening, mass, or free air. No evidence of appendicitis. Lymph Nodes: No abnormal lymphadenopathy. Mesentery: Mesentery herniated into the sac. Vasculature: Extensive atherosclerotic changes with vessel wall calcification involving the abdominal aorta, celiac artery at its ostium, and complete calcification of the splenic artery. Additional atherosclerotic calcifications along bilateral iliac vessels and visualized lower limb arteries. Musculoskeletal: Extensive degenerative changes with multilevel reduced intervertebral disc height and ossification. The visualized section of the dorsal spine shows a pedicle screw and an absent posterior element, likely post-operative. Extensive degenerative changes in the posterior elements of the lumbar spine. No destructive bony lesion or acute fracture.IMPRESSION: 1. Incarcerated ventral lower abdominal wall hernia resulting in small bowel obstruction. 2. Bilateral atrophic kidneys with perinephric fat stranding, suggestive of chronic renal parenchymal disease. 3. Cholelithiasis. 4. Extensive atherosclerosis involving abdominal aorta and major branches. 5. Fatty replacement of pancreas. 6. Colonic diverticulosis. 7. Degenerative changes of the visualized spine. REASON: assess bowel obstruction, abdominal hernia ORDERING PHYSICIAN: DONELL WELLS MD PROCEDURE: ABD 1VW - ABD 1VW ABD 1VW REASON: assess bowel obstruction, abdominal hernia COMPARISON: Prior study from 12/17/2024 is available. FINDINGS: Single image of the abdomen was obtained. Bowel gas pattern is normal. Bones and soft tissues appear unremarkable. There are no abnormal calcifications. There is no evidence of foreign body. There are spinal rods in the thoracic spine interpedicular screws seen at the edges study. There is mild osteopenia of the bony thorax. IMPRESSION: 1. Nonspecific gas pattern. 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 Spenser henry in office, PCP PROCEDURES: None surgical intervention on this admission Surgical intervention to be done in outpatient setting IMAGING (S) report attached to summary : CT abdomen pelvis, KUB MICROBIOLOGY: report attached to summary; blood cultures negative x3 day ACTIVITY: Patient walks with walker. HOME MEDICATIONS reviewed remain the same no changes NEW MEDICATIONS none TEACHING: Advised patient to continue to use abdominal binder when she out of bed ambulating. Emergency instructions: The patient was instructed to present to the nearest Emergency Department or call 911 should their symptoms return or worsen. Discharge Instructions: Item Value Date Time White Blood Count 9.9 K/uL 8/29/25 0456 Red Blood Count 3.24 MIL/uL L 03/14/25455 Hemoglobin 8.8 g/dL L 03/14/25455 Hematocrit 27.8 % L 03/14/25455 Mean Corpuscular Volume 85.8 fL 03/14/25455 Mean Corpuscular Hemoglobin 27.2 pg 03/14/25455 Mean Corpuscular Hemoglobin Concent 31.7 g/dL L 03/14/25455 Red Cell Distribution Width 15.9 % H 03/14/25455 Platelet Count 230 K/uL 03/14/25455 Mean Platelet Volume 11.2 fL H 03/14/25455 Immature Granulocyte % (Auto) 0.3 % 03/14/25455 Neutrophils (%) (Auto) 64.6 % 03/14/25455 Lymphocytes (%) (Auto) 23.5 % 03/14/25455 Monocytes (%) (Auto) 6.0 % 03/14/25455 Eosinophils (%) (Auto) 5.1 % 03/14/25455 Neutrophils # (Auto) 6.4 K/uL 03/14/25455 Basophils (%) (Auto) 0.5 % 03/14/25455 Lymphocytes # (Auto) 2.3 K/uL 03/14/25455 Monocytes # (Auto) 0.6 K/uL 03/14/25455 Eosinophils # (Auto) 0.51 K/uL 03/14/25455 Basophils # (Auto) 0.05 K/uL 03/14/25455 Absolute Immature Granulocyte (auto 0.03 K/uL 03/14/25455 Nucleated Red Blood Cells 0.0 % 03/14/25455 Reticulocyte Count (auto) 1.55886 % 03/14/25455 Immature Reticulocyte Fraction 15.80 % H 03/14/25455 Whole Blood Glucose 195 MG/DL H 03/14/25 1446 Creatinine 1.2 mg/dL H 03/14/25455 Carbon Dioxide Level 26 mmol/L 03/14/25455 Chloride Level 107 mmol/L 03/14/25455 Potassium Level 4.0 mmol/L 03/14/25455 Sodium Level 138 mmol/L 8/29/25 0456 Glomerular Filtration Rate Calc 47 mL/min 03/14/25 0456 Random Glucose 131 mg/dL H 03/14/25 0456 Total Calcium 8.3 mg/dL L 03/14/256 Iron Level 46 mcg/dL L 03/14/25455 Total Iron Binding Capacity 212 mcg/dL L 03/14/25 0456 Percent Iron Saturation 21.6 % L 03/14/25 045 Total Protein 5.8 g/dL L 03/14/256 Albumin 2.8 g/dL L 03/14/25 0456 Alkaline Phosphatase 74 U/L 03/14/25 0456 Alanine Aminotransferase (ALT/SGPT) 17 U/L # 03/14/25 0456 Aspartate Amino Transf (AST/SGOT) 19 U/L 03/14/25455 Total Bilirubin 0.7 mg/dL # 03/14/25 045 Folic Acid (LAB) 11.80 ng/mL 03/14/25 0456 Blood Urea Nitrogen 24 mg/dL H 03/14/25 0456 Creatinine 1.4 mg/dL H 03/13/25 0612 Creatinine 1.9 mg/dL H 03/12/25 1155 Blood Urea Nitrogen 34 mg/dL H 03/12/25 1155 Hemoglobin A1c 7.4 % H 03/12/25 1155 Thyroid Stimulating Hormone (TSH) 3.84 uIU/mL H 03/12/25 1346 Home Medications: Reported Medications Simvastatin (Simvastatin) 20 Mg Tablet, 1 TAB PO HS 03/13/25 Vit C/E/Zn/Coppr/Lutein/Zeaxan (Preservision Areds 2 Softgel) 250MG-90MG Capsule, 1 EACH PO DAILY, CAP 12/16/24 Losartan Potassium (Losartan Potassium) 25 Mg Tablet, 1 TAB PO DAILY 12/16/24 Insulin Glargine,Hum.rec.anlog (Toujeo Solostar) 300 Unit/Ml (1.5 Ml) Insuln.pen, 16 UNITS SQ HS 12/16/24 Sitagliptin Phos/Metformin HCl (Janumet 50-1,000 mg Tablet) 50 Mg-1,000 Mg Tablet, 1 TAB PO BID 12/16/24 Aspirin (Aspirin) 81 Mg Tab.chew, 81 MG PO DAILY, TAB.CHEW 10/28/22 Discontinued Reported Medications Meclizine HCl (Meclizine HCl) 12.5 Mg Tablet, 1 TAB PO BID PRN for DIZZINESS 12/16/24 Ferrous Sulfate (Ferosul) 325 Mg (65 Mg Iron) Tablet, 1 TAB PO DAILY 12/16/24 Simvastatin (ZOCOR) 40 Mg Tablet, 20 MG PO HS, TAB 10/28/22 Discontinued Scripts Cephalexin Monohydrate (Keflex) 500 Mg Cap, 1 CAP PO BID for 7 Days, #14 CAP 0 Refills Prov:OPAL FISCHER AGPCNP 12/18/24 Continued Medications: Aspirin (Aspirin) 81 Mg Tab.chew 81 MG PO DAILY, TAB.CHEW Insulin Glargine,Hum.rec.anlog (Toujeo Solostar) 300 Unit/Ml (1.5 Ml) Insuln.pen 16 UNITS SQ HS Losartan Potassium (Losartan Potassium) 25 Mg Tablet 1 TAB PO DAILY Simvastatin (Simvastatin) 20 Mg Tablet 1 TAB PO HS Sitagliptin Phos/Metformin HCl (Janumet 50-1,000 mg Tablet) 50 Mg-1,000 Mg Tablet 1 TAB PO BID Vit C/E/Zn/Coppr/Lutein/Zeaxan (Preservision Areds 2 Softgel) 250MG-90MG Capsule 1 EACH PO DAILY, CAP Time spent arranging discharge: 31-60 minutes ATTESTATION BY PHYSICIAN I have seen and examined the patient. I reviewed the documentation, medical decision making, and treatment plan as noted by the mid-level provider above. I agree with the findings and plan of care. ROGE BRAXTON MD, [facility] NP Mar 14, 2025 17:18
--- NOTE | 2025-03-14 17:21 | PN ---
NEPHROLOGY PROGRESS NOTE Date/Time Patient Seen: Mar 14, 2025 Reason for Consultation: 17:18 SUBJECTIVE: The patient has also hypertension, hyperlipidemia, diabetes, previous stroke. The patient is admitted with abdominal hernia and intestinal obstruction. Followed up by the surgeon. The patient is on conservative management. Previously was on NG tube, which has been removed. Diet is being advanced as tolerated Renal function is improving Electrolytes show hypokalemia She was seen the medical floor, no acute distress REVIEW OF SYSTEMS: GENERAL: Negative for any nausea, vomiting, fevers, chills, or weight loss. NEUROLOGIC: Negative for any blurry vision, blind spots, double vision, facial asymmetry, dysphagia, dysarthria, hemiparesis, hemisensory deficits, vertigo, ataxia. HEENT: Negative for any head trauma, neck trauma, neck stiffness, photophobia, phonophobia, sinusitis, rhinitis. CARDIAC: Negative for any chest pain, dyspnea on exertion, paroxysmal nocturnal dyspnea, peripheral edema. PULMONARY: Negative for any shortness of breath, wheezing, COPD, or TB exposure. GASTROINTESTINAL: Negative for any abdominal pain, nausea, vomiting, bright red blood per rectum, melena. GENITOURINARY: Negative for any dysuria, hematuria, incontinence. INTEGUMENTARY: Negative for any rashes, cuts, insect bites. RHEUMATOLOGIC: Negative for any joint pains, photosensitive rashes, history of vasculitis or kidney problems. HEMATOLOGIC: Negative for any abnormal bruising, frequent infections or bleeding. Vital Signs (last 8hr) Date Time Temp Pulse Resp B/P (MAP) Pulse Ox O2 Delivery O2 Flow Rate FiO2 03/14/25 16:00 97.7 66 17 135/66 95 Room Air 03/14/25 12:13 98.1 62 17 117/67 93 Room Air PHYSICAL EXAM: GENERAL: Alert and oriented x 3. No acute distress. Well-nourished. EYES: EOMI. Anicteric. HENT: Moist mucous membranes. No scleral icterus. No cervical lymphadenopathy. LUNGS: Clear to auscultation bilaterally. No accessory muscle use. CARDIOVASCULAR: Regular rate and rhythm. No murmur. No JVD. ABDOMEN: Soft, non-tender and non-distended. No palpable masses. EXTREMITIES: No edema. Non-tender.?SKIN: No rashes or lesions. Warm. NEUROLOGIC: No focal neurological deficits. CN II-XII grossly intact, but not individually tested. PSYCHIATRIC: Cooperative. Appropriate mood and affect. Current Medications Medications (Trade) Dose Ordered Sig/Rafael Route PRN Reason Start Time Stop Time Status Last Admin Dose Admin Acetaminophen (TYLenol 325MG TAB) 650 mg Q6H PRN PO MILD PAIN (1-3) 03/12/25 15:00 04/11/25 14:59 Aspirin (Aspirin 81mg Chew Tab) 81 mg DAILY PO 03/14/25 09:00 04/13/25 08:59 03/14/25 08:50 81 MG Bismuth Subsalicylate (Pepto-Bismol) 30 mg Q6H PRN PO DIARRHEA 03/13/25 22:30 04/12/25 22:29 Dextrose (D50w) 50 ml AD PRN IV HYPOGLYCEMIA PROTOCOL 03/12/25 15:00 04/11/25 14:59 Glucagon (Glucagon 1mg Kit) 1 mg AD PRN IM HYPOGLYCEMIA PROTOCOL 03/12/25 15:00 04/11/25 14:59 Heparin Sodium (Porcine) (HEParin 5,000 UNIT VIAL) 5,000 unit Q12H SQ 03/13/25 09:00 04/12/25 08:59 03/14/25 08:59 5,000 UNIT Home Med (Home Medication) (Vit C/E/Zn/ Coppr/Lutein/ Per... DAILY PO 03/14/25 09:00 04/13/25 08:59 Hydralazine HCl (APRESOLine 20MG INJ) 5 mg Q6H PRN IV ADMINISTER FOR SBP > 160 03/12/25 15:00 04/11/25 14:59 Hydromorphone HCl (DiLAUDid 0.5MG INJ) 0.5 mg Q6H PRN IVP SEVERE PAIN (7-10) 03/12/25 15:00 03/17/25 14:59 Insulin Human Regular (humuLIN R 100 UNIT/ML 3ML) INSULIN SLIDING SCAL... ACHS SQ 03/12/25 16:30 04/11/25 16:29 03/12/25 17:05 3 UNIT Lactated Ringer's 1,000 ml @ 80 mls/hr [id number] IV 03/12/25 15:00 04/11/25 14:59 03/14/25 16:24 80 MLS/HR Losartan Potassium (CozAAR 25MG TAB) 25 mg DAILY PO 03/14/25 09:00 04/13/25 08:59 03/14/25 08:50 25 MG Magnesium Sulfate 50 ml @ 0 mls/hr PROTOCOL PRN IV low mag level 03/13/25 09:30 04/12/25 09:29 03/14/25 07:26 25 MLS/HR Ondansetron HCl (zoFRAN 4MG INJ) 4 mg Q6H PRN IVP NAUSEA/VOMITING 03/12/25 15:00 04/11/25 14:59 03/12/25 23:29 4 MG Pantoprazole Sodium (PROTonix 40MG INJ) 40 mg Q24H IVP 03/12/25 17:00 04/11/25 16:59 03/14/25 17:02 40 MG Piperacillin Sod/ Tazobactam Sod (Zosyn 3.375gm+NS 50ml) 3.375 gm BID IVPB 03/12/25 21:00 03/22/25 20:59 03/14/25 08:50 3.375 GM Piperacillin Sod/ Tazobactam Sod (Zosyn 3.375gm+NS 50ml) 3.375 gm ONCE STAT IVPB 03/12/25 13:32 03/12/25 13:36 DC 03/12/25 13:40 3.375 GM Potassium Chloride 100 ml @ 50 mls/hr AD PRN IV POTASSIUM PROTOCOL 03/13/25 09:30 04/12/25 09:29 Simvastatin (zoCOR) 20 mg HS PO 03/13/25 21:00 04/12/25 20:59 03/13/25 21:35 20 MG Thiamine HCl (Vitamin B-1) 100 mg DAILY IVP 03/13/25 09:00 04/12/25 08:59 03/14/25 08:50 100 MG LABORATORY: [ ] Hematology Labs: Test 03/14/25 04:56 Range/Units White Blood Count 9.9 4.8-10.8 K/uL Red Blood Count 3.24 L 4.00-5.50 MIL/uL Hemoglobin 8.8 L 12.0-16.0 g/dL Hematocrit 27.8 L 36-48 % Mean Corpuscular Volume 85.8 79-99 fL Mean Corpuscular Hemoglobin 27.2 27.0-33.0 pg Mean Corpuscular Hemoglobin Concent 31.7 L 32.0-36.0 g/dL Red Cell Distribution Width 15.9 H 11.0-15.5 % Platelet Count 230 130-400 K/uL Mean Platelet Volume 11.2 H 7.5-10.5 fL Immature Granulocyte % (Auto) 0.3 0-1 % Neutrophils (%) (Auto) 64.6 40.0-77.0 % Lymphocytes (%) (Auto) 23.5 21.0-51.0 % Monocytes (%) (Auto) 6.0 3.0-13.0 % Eosinophils (%) (Auto) 5.1 0.0-8.0 % Basophils (%) (Auto) 0.5 0.0-5.0 % Neutrophils # (Auto) 6.4 1.8-7.7 K/uL Lymphocytes # (Auto) 2.3 1.0-4.8 K/uL Monocytes # (Auto) 0.6 0.1-1.0 K/uL Eosinophils # (Auto) 0.51 0.00-0.70 K/uL Basophils # (Auto) 0.05 0.00-0.20 K/uL Absolute Immature Granulocyte (auto 0.03 0-1 K/uL Nucleated Red Blood Cells 0.0 0.0-0.19 % Reticulocyte Count (auto) 1.52017 0.42-2.23 % Immature Reticulocyte Fraction 15.80 H 0.18-0.48 % Chemistry Labs: Test 03/14/25 14:46 03/14/25 04:56 03/13/25 06:12 Range/Units Whole Blood Glucose 195 H 70-110 MG/DL Sodium Level 138 136-145 mmol/L Potassium Level 4.0 3.5-5.1 mmol/L Chloride Level 107 101-111 mmol/L Carbon Dioxide Level 26 21-32 mmol/L Blood Urea Nitrogen 24 H 7-18 mg/dL Creatinine 1.2 H 0.5-1.0 mg/dL Glomerular Filtration Rate Calc 47 >90 mL/min Random Glucose 131 H 70-105 mg/dL Total Calcium 8.3 L 8.5-10.1 mg/dL Magnesium Level 1.80 1.80-2.40 mg/dL Iron Level 46 L 50-170 mcg/dL Total Iron Binding Capacity 212 L 250-450 mcg/dL Percent Iron Saturation 21.6 L 22-44 % Ferritin 63 15-150 ng/mL Total Bilirubin 0.7 # 0.2-1.0 mg/dL Aspartate Amino Transf (AST/SGOT) 19 10-37 U/L Alanine Aminotransferase (ALT/SGPT) 17 # 12-78 U/L Alkaline Phosphatase 74 50-136 U/L Total Protein 5.8 L 6.0-8.3 g/dL Albumin 2.8 L 3.5-5.0 g/dL Vitamin B12 Level 236 193-986 pg/mL Folic Acid (LAB) 11.80 2-20 ng/mL Phosphorus Level 3.6 2.5-4.9 mg/dL DIAGNOSTICS / RADIOLOGY: ASSESSMENT: Small-bowel obstruction secondary to incarcerated lower abdominal wall hernia, POA Leukocytosis, POA resolved ЮЛИЯ on CKD, POA improving Dehydration, POA Poor vascular access, POA Prior history of bowel obstruction secondary to abdominal hernia, POA History of hypertension, POA Hyperlipidemia, POA Type 2 diabetes mellitus, POA Prior history of stroke in 1988 with residual lower extremity weakness, POA History of vertebral compression fracture with prior history of kyphoplasty, POA PLAN: Labs, diagnostic, radiologic exams reviewed and interpreted by myself and supervising physician. We have reviewed external records in detail Follow surgery recommendations Require close monitoring of renal function and electrolytes Order CBC, CMP, and electrolytes in am Continue with antibiotics BiPAP as necessary, for respiratory distress Monitor blood pressure adjust medication doses as needed Avoid hypotensive episodes May use Dilaudid 0.5 mg IV every 6 hours as needed for severe pain Monitor blood sugars Strict intake, output, and daily weight should be monitored Please renally adjust medications Avoid nephrotoxic and nonsteroidal drugs Avoid contrast if possible Will continue to monitor renal function, anemia, electrolytes Treatment plan discussed with patient Questions were answered We have discussed with the other team physicians in detail about the care plan We will continue to monitor the patient closely ATTESTATION BY PHYSICIAN I have seen and examined the patient. I reviewed the documentation, medical decision making, and treatment plan as noted by the mid-level provider above. I agree with the findings and plan of care. ELEONORA SAINI MD, [facility] Mar 14, 2025 17:21
== END 2025-03-14 18:50 | disposition home or self-care (01) | DRG 872 ==
LOC: EDH 11:23 → EDHIP 14:36 → 3CH 22:25
PROVIDERS: ADMIT Internal Medicine; ATTEND Internal Medicine
DX: A41.9 Sepsis, unspecified organism (principal); K43.6 Other and unspecified ventral hernia with obstruction, without gangrene; N17.9 Acute kidney failure, unspecified; E86.0 Dehydration; K57.30 Diverticulosis of large intestine without perforation or abscess without bleeding; K80.20 Calculus of gallbladder without cholecystitis without obstruction; D63.1 Anemia in chronic kidney disease; E11.22 Type 2 diabetes mellitus with diabetic chronic kidney disease; E11.51 Type 2 diabetes mellitus with diabetic peripheral angiopathy without gangrene; N18.31 Chronic kidney disease, stage 3a; I12.9 Hypertensive chronic kidney disease with stage 1 through stage 4 chronic kidney disease, or unspecified chronic kidney disease; E87.6 Hypokalemia; E78.00 Pure hypercholesterolemia, unspecified; I69.349 Monoplegia of lower limb following cerebral infarction affecting unspecified side; Z87.440 Personal history of urinary (tract) infections
CPT/HCPCS: 36415; 71045; 74018; 74176; 80048; 80053; 80076; 82607; 82728; 82746; 82948; 83036; 83605; 83735; 84100; 84443; 84484; 85025; 85610; 85730; 87040; 93005; 96374; 96375; 96376; 99285; G0378; J1644; J1756; J1815; J2270; J2405; J2470; J2543; J3411; J3475; J7030; J7050

== ENCOUNTER 2025-03-16 22:30 | Inpatient (IN) | payer MEDICARE ==
[2025-03-14 02:51] VITALS: O2SAT 93
[~2025-03-16] VITALS: Ht 160 cm; Wt 85.3 kg
[~2025-03-16 22:30] MED LIST changes: -CEPH500B PO; -FERR325T29 PO; -MECL-226 PO; +SIMV-43 PO; -SIMV40TA59 PO
[2025-03-16 22:59] LABS: IMMATURE GRANULOCYTE ABSOLUTE 0.06 K/uL (0-1); NUCLEATED RED BLOOD CELLS 0.0 % (0.0-0.19); PLATELET COUNT (AUTO) 298 K/uL (130-400); RED BLOOD CELL COUNT(AUTO) 4.01 MIL/uL (4.00-5.50); RED CELL DISTRIBUTION WIDTH 15.5 % (11.0-15.5); WHITE BLOOD COUNT (AUTO) 11.4 K/uL (4.8-10.8)
[2025-03-16 23:14] LABS: CREATININE 1.4 mg/dL (0.5-1.0); GLOMERULAR FILTR. RATE CALC 39.0 mL/min (>90); GLUCOSE,RANDOM 189.0 mg/dL (70-105); SODIUM SERUM 135.0 mmol/L (136-145); UREA NITROGEN, BLOOD 17.0 mg/dL (7-18)
--- NOTE | 2025-03-16 23:20 | ERN ---
General Chief Complaint: Abdominal Pain Stated Complaint: ABD PAIN, VOMITING Time Seen by MD: 22:46 Source: patient History of Present Illness Allergies: Coded Allergies: No Known Allergies (Unverified Allergy, Unknown, 10/27/22) Home Meds Reported Medications Simvastatin (Simvastatin) 20 Mg Tablet, 1 TAB PO HS 03/13/25 Vit C/E/Zn/Coppr/Lutein/Zeaxan (Preservision Areds 2 Softgel) 250MG-90MG Capsule, 1 EACH PO DAILY, CAP 12/16/24 Losartan Potassium (Losartan Potassium) 25 Mg Tablet, 1 TAB PO DAILY 12/16/24 Insulin Glargine,Hum.rec.anlog (Toujeo Solostar) 300 Unit/Ml (1.5 Ml) Insuln.pen, 16 UNITS SQ HS 12/16/24 Sitagliptin Phos/Metformin HCl (Janumet 50-1,000 mg Tablet) 50 Mg-1,000 Mg Tablet, 1 TAB PO BID 12/16/24 Aspirin (Aspirin) 81 Mg Tab.chew, 81 MG PO DAILY, TAB.CHEW 10/28/22 Discontinued Reported Medications Meclizine HCl (Meclizine HCl) 12.5 Mg Tablet, 1 TAB PO BID PRN for DIZZINESS 12/16/24 Ferrous Sulfate (Ferosul) 325 Mg (65 Mg Iron) Tablet, 1 TAB PO DAILY 12/16/24 Simvastatin (ZOCOR) 40 Mg Tablet, 20 MG PO HS, TAB 10/28/22 Discontinued Scripts Cephalexin Monohydrate (Keflex) 500 Mg Cap, 1 CAP PO BID for 7 Days, #14 CAP 0 Refills Prov:OPAL FISCHER AGPCNP 12/18/24 Past Medical History Past Medical History: Diabetes-Type II, High Cholesterol, Hypertension, Stroke Medical History Other: SBO Past Surgical History: Cholecystectomy, BTL, Surgical History Other: BACK SX, 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 GENERAL APPEARANCE: Alert, oriented x3, no acute distress, obese. HEAD AND FACE: Non-traumatic. EYES: PERRL, pink conjunctivas, eyelid no trauma, anterior chamber clear. EARS: Pinnas intact and no signs of trauma or erythema. Ear canals clear and no discharge. TMs no erythema. NOSE: No discharge, no bleeding. OROPHARYNX: Mouth normal, teeth no caries, tongue pink. Pharynx clear, no erythema. Tonsils no exudates, no abscesses noted. Mucous membrane moist. NECK: Supple, non-tender, no thyromegaly, no masses, no JVD, no bruits. BREAST: Deferred. CHEST: No tenderness, no crepitus, no paradoxical movement, no retractions. LUNGS: Clear, well-ventilated, symmetric, no rales, no wheezing, no rhonchi, no stridor, good breath sounds bilaterally. HEART: Regular rate, regular rhythm, no murmur, no gallops. VASCULAR: No peripheral edema. ABDOMEN: Soft, positive bowel sounds, distended, guarding, tender, no rebound, no masses no hepatomegaly, no splenomegaly, no Hurd's sign, no hernias. RECTAL: Deferred. GENITAL: Deferred. NEUROLOGICAL: Normal speech, gross motor function intact, gross sensory function intact. MUSCULOSKELETAL: Neck nontender, full range of motion, back nontender, full range of motion. EXTREMITIES: Nontender, full range of motion. SKIN: Color pink, dry, no turgor, no rash, no lacerations, no abrasions, no contusions. LYMPHATICS: Deferred. Results Laboratory and Microbiology Lab and Micro Result Laboratory Tests Test 03/16/25 22:43 White Blood Count 11.4 K/uL (4.8-10.8) H Red Blood Count 4.01 MIL/uL (4.00-5.50) Hemoglobin 11.0 g/dL (12.0-16.0) #L Hematocrit 34.2 % (36-48) #L Mean Corpuscular Volume 85.3 fL (79-99) Mean Corpuscular Hemoglobin 27.4 pg (27.0-33.0) Mean Corpuscular Hemoglobin Concent 32.2 g/dL (32.0-36.0) Red Cell Distribution Width 15.5 % (11.0-15.5) Platelet Count 298 K/uL (130-400) # Mean Platelet Volume 11.0 fL (7.5-10.5) H Immature Granulocyte % (Auto) 0.5 % (0-1) Neutrophils (%) (Auto) 74.2 % (40.0-77.0) Lymphocytes (%) (Auto) 17.1 % (21.0-51.0) L Monocytes (%) (Auto) 6.2 % (3.0-13.0) Eosinophils (%) (Auto) 1.6 % (0.0-8.0) Basophils (%) (Auto) 0.4 % (0.0-5.0) Neutrophils # (Auto) 8.4 K/uL (1.8-7.7) H Lymphocytes # (Auto) 1.9 K/uL (1.0-4.8) Monocytes # (Auto) 0.7 K/uL (0.1-1.0) Eosinophils # (Auto) 0.18 K/uL (0.00-0.70) Basophils # (Auto) 0.04 K/uL (0.00-0.20) Absolute Immature Granulocyte (auto 0.06 K/uL (0-1) Nucleated Red Blood Cells 0.0 % (0.0-0.19) Sodium Level 135 mmol/L (136-145) L Potassium Level 4.3 mmol/L (3.5-5.1) Chloride Level 100 mmol/L (101-111) L Carbon Dioxide Level 27 mmol/L (21-32) Blood Urea Nitrogen 17 mg/dL (7-18) Creatinine 1.4 mg/dL (0.5-1.0) H Glomerular Filtration Rate Calc 39 mL/min (>90) Random Glucose 189 mg/dL (70-105) H Lactic Acid Level 1.4 mmol/L (0.8-2.5) Total Calcium 9.1 mg/dL (8.5-10.1) Labs Reviewed?: Yes EKG/XRAY/US/CT/MRI EKG Comment 03/16/2025 time 10:42 p.m. Ventricular rate 80 Sinus rhythm [place] [address] wave elevation or depression CT Scan Comment IMAGING REPORT Addendum PATIENT: KENIA ORTIZ V MR#: [id number] : 1945 SEX: F AGE: 79 LOCATION: [facility] ORDER 46 STATUS: REG ER REPORT#: [id number] SERVICE 45 REASON: abd distension ORDERING PHYSICIAN: NYASIA FREEMAN MD PROCEDURE: ABD PEL WO - CT ABDOMEN/PELVIS W/O CONTRAST ADDENDUM REPORT ADDENDUM: Results were shared by telephone at 01:27 am on 03-17-25 and acknowledged by Nyasia Hobson. /[place] EXAM: CT Abdomen and Pelvis without IV contrast. CLINICAL HISTORY: Pain. TECHNIQUE: Thin collimated axial CT images of the abdomen and pelvis were obtained, with sagittal and coronal reformatted images also submitted. A CT scan is done according to ALARA (As Low As Reasonably Achievable). CONTRAST: None. COMPARISON: CT scan of the abdomen and pelvis. 03/12/2025. FINDINGS: Unremarkable visualized lung parenchyma. Tiny calcified granuloma in segment 6 of the right lobe of the liver, measuring 1 x 2 mm. Small intrahepatic pneumobilia in the left lobe. Cholelithiasis without acute cholecystitis. Fatty infiltration of the pancreas. Bilateral kidneys are shrunken and atrophic with significant perinephric fat stranding, likely representing chronic renal parenchymal disease. No hydronephrosis or renal mass. Questionable calcified splenic artery aneurysms around the splenic hilar, measuring about 0.8 cm to 1.2 cm. Unremarkable adrenal glands. Redemonstrated is a lower ventral abdominal wall hernia with herniation of small bowel loops and mesentery through a defect measuring 4.5 cm. There is mild fatty stranding around the hernia sac and neck regions with dilated small bowel loops proximal to this segment, measuring up to 4 cm in diameter. The features are compatible with incarcerated ventral wall hernia with small bowel obstruction. Small fluid collection in the herniated sac. Colonic diverticulosis. The appendix is not visualized. Redemonstrated is mild anterior tenting of the anterior wall of the urinary bladder, likely due to fibrotic bands from the hernial sac. No intraluminal mass or calculus. Unremarkable reproductive organs. No lymphadenopathy. No free fluid. No pneumoperitoneum. Patchy atherosclerotic calcification of the aorta and its major branches. There is no acute osseous abnormality. Osteopenia. Thoracolumbar spondylosis. Fixation hardware in the lower thoracic spine. IMPRESSIONS: Redemonstrated is an incarcerated lower abdominal wall hernia and small bowel obstruction with a mild interval increase in the bowel dilatation. The remaining findings are stable. /[place] DICTATED BY: JORDAN MORROW Jr., MD DATE: 03/17/25 0128 ELECTRONICALLY SIGNED BY: DATE: EXAM: CT Abdomen and Pelvis without IV contrast. CLINICAL HISTORY: Pain. TECHNIQUE: Thin collimated axial CT images of the abdomen and pelvis were obtained, with sagittal and coronal reformatted images also submitted. A CT scan is done according to ALARA (As Low As Reasonably Achievable). CONTRAST: None. COMPARISON: CT scan of the abdomen and pelvis. 03/12/2025. FINDINGS: Unremarkable visualized lung parenchyma. Tiny calcified granuloma in segment 6 of the right lobe of the liver, measuring 1 x 2 mm. Small intrahepatic pneumobilia in the left lobe. Cholelithiasis without acute cholecystitis. Fatty infiltration of the pancreas. Bilateral kidneys are shrunken and atrophic with significant perinephric fat stranding, likely representing chronic renal parenchymal disease. No hydronephrosis or renal mass. Questionable calcified splenic artery aneurysms around the splenic hilar, measuring about 0.8 cm to 1.2 cm. Unremarkable adrenal glands. Redemonstrated is a lower ventral abdominal wall hernia with herniation of small bowel loops and mesentery through a defect measuring 4.5 cm. There is mild fatty stranding around the hernia sac and neck regions with dilated small bowel loops proximal to this segment, measuring up to 4 cm in diameter. The features are compatible with incarcerated ventral wall hernia with small bowel obstruction. Small fluid collection in the herniated sac. Colonic diverticulosis. The appendix is not visualized. Redemonstrated is mild anterior tenting of the anterior wall of the urinary bladder, likely due to fibrotic bands from the hernial sac. No intraluminal mass or calculus. Unremarkable reproductive organs. No lymphadenopathy. No free fluid. No pneumoperitoneum. Patchy atherosclerotic calcification of the aorta and its major branches. There is no acute osseous abnormality. Osteopenia. Thoracolumbar spondylosis. Fixation hardware in the lower thoracic spine. IMPRESSIONS: Redemonstrated is an incarcerated lower abdominal wall hernia and small bowel obstruction with a mild interval increase in the bowel dilatation. The remaining findings are stable. /[place] DICTATED BY: JORDAN MORROW Jr., MD DATE: 03/17/25116 ELECTRONICALLY SIGNED BY: JORDAN MORROW Jr., MD DATE: 03/17/25116 [facility] MDM: Differential diagnosis:, ventral hernia, bowel obstruction Rationale: Tests considered and ordered secondary to shared decision making include: Previous outside records reviewed: Old ER visits. Risk of complication and/or morbidity or mortality of patient management: None Medications-Per medication reconciliation Need for hospitalization: Patient does meet criteria for hospitalization. Need for emergency major/minor surgery: No There are no social concerns with this patient. Prescription drug management Prescriptions will include symptomatic care Patient's prior external medical records from other ER visits were reviewed by me as indicated. Prior testing and results from previous visits were reviewed. Prior tests were taken into account with medical decision making and resource utilization, independent historian/historians were used to obtain complete medical history. I independently interpreted the test that were performed, results were reviewed by me and considered findings on radiology if ordered. Medical management and examination interpretation discussions were had by me with other qualified healthcare professionals as indicated for the patient's care. Patient will be admitted under the care of hospitalist group. ED Course Orders Procedure Category Date Status Time Cbc With Differential LAB 03/16/25 Complete 22:43 Basic Metabolic Panel LAB 03/16/25 Complete 22:43 Lactic Acid LAB 03/16/25 Complete 22:43 Ct Abdomen/Pelvis W/O CT 03/16/25 Resulted Contrast 22:46 12 Lead Ekg Tracing- EKG 03/16/25 Logged Technical 22:48 Ondansetron 4mg Inj PHA 03/17/25 Complete (Zofran 4mg Inj) 00:30 Ngt To Low CPOE 03/17/25 Transmitted Intermittent Suctn 00:11 Ondansetron 4mg Inj PHA 03/17/25 Complete (Zofran 4mg Inj) 00:02 Current Medications Medications (Trade) Dose Ordered Sig/Rafael Route PRN Reason Start Time Stop Time Status Last Admin Dose Admin Ondansetron HCl (zoFRAN 4MG INJ) 4 mg ONCE ONCE IVP 03/17/25 00:30 03/17/25 00:31 DC 03/17/25 00:19 Ondansetron HCl (zoFRAN 4MG INJ) 4 mg STK-MED ONCE .ROUTE 03/17/25 00:02 03/17/25 00:17 DC Vital Signs Date Time Temp Pulse Resp B/P (MAP) Pulse Ox O2 Delivery O2 Flow Rate FiO2 03/16/25 22:45 98.4 80 18 155/87 95 Room Air* 0 21 03/16/25 22:31 96.8 82 22 134/64 94 Room Air Procedure Dictation Ventral hernia reduction patient tolerated procedure well in a Trendelenburg position ventral hernia was reduced successfully using mild tension patient tolerated procedure well DX & DISP Disposition: Inpatient Decision to Admit Time: 00:57 Departure Impression: Primary Impression: SBO (small bowel obstruction) Additional Impression: Ventral hernia Condition: Stable Referrals: SELF,REFERRAL (PCP) NYASIA FREEMAN MD Mar 16, 2025 23:20
[2025-03-17] VITALS (9 sets, daily range): BP systolic 124–142; BP diastolic 52–78; PULSE 64–85; RESP 16–21; TEMP 97.8–98.4; O2SAT 93–96
--- NOTE | 2025-03-17 00:18 | HMCIMG ---
EXAM: CT Abdomen and Pelvis without IV contrast. CLINICAL HISTORY: Pain. TECHNIQUE: Thin collimated axial CT images of the abdomen and pelvis were obtained, with sagittal and coronal reformatted images also submitted. A CT scan is done according to ALARA (As Low As Reasonably Achievable). CONTRAST: None. COMPARISON: CT scan of the abdomen and pelvis. 03/12/2025. FINDINGS: Unremarkable visualized lung parenchyma. Tiny calcified granuloma in segment 6 of the right lobe of the liver, measuring 1 x 2 mm. Small intrahepatic pneumobilia in the left lobe. Cholelithiasis without acute cholecystitis. Fatty infiltration of the pancreas. Bilateral kidneys are shrunken and atrophic with significant perinephric fat stranding, likely representing chronic renal parenchymal disease. No hydronephrosis or renal mass. Questionable calcified splenic artery aneurysms around the splenic hilar, measuring about 0.8 cm to 1.2 cm. Unremarkable adrenal glands. Redemonstrated is a lower ventral abdominal wall hernia with herniation of small bowel loops and mesentery through a defect measuring 4.5 cm. There is mild fatty stranding around the hernia sac and neck regions with dilated small bowel loops proximal to this segment, measuring up to 4 cm in diameter. The features are compatible with incarcerated ventral wall hernia with small bowel obstruction. Small fluid collection in the herniated sac. Colonic diverticulosis. The appendix is not visualized. Redemonstrated is mild anterior tenting of the anterior wall of the urinary bladder, likely due to fibrotic bands from the hernial sac. No intraluminal mass or calculus. Unremarkable reproductive organs. No lymphadenopathy. No free fluid. No pneumoperitoneum. Patchy atherosclerotic calcification of the aorta and its major branches. There is no acute osseous abnormality. Osteopenia. Thoracolumbar spondylosis. Fixation hardware in the lower thoracic spine. IMPRESSIONS: Redemonstrated is an incarcerated lower abdominal wall hernia and small bowel obstruction with a mild interval increase in the bowel dilatation. The remaining findings are stable. /[place]
--- NOTE | 2025-03-17 01:20 | HP ---
[facility] HISTORY AND PHYSICAL Date of Service: Mar 17, 2025 Time of Service: 01:19 Supervising/attending physician: Dr. Emelia Doyle and Dr. Vesna Bowman HISTORY OF PRESENT ILLNESS: Ms Huang is a 79-year-old female with a history of DM type 2, HTN, HDL, CVA, obesity, and prior SBO who presented to [facility] for evaluation of abdominal pain and abdominal distention onset 03/16/2025. The patient reported that she was recently discharged and was diagnosed with small-bowel obstruction secondary to ventral hernia. Patient is pending to see her PCP and the surgeon. The patient denied fever, chills, chest pain, shortness of breath, any other pain, problem or concern. The patient arrived to the ED with a blood pressure of 134/64, 82 bpm, RR 22 bpm, 93% on room air, temperature 98.4 F. Labs: WBC 11.4, hemoglobin 11.0, hematocrit 34.2, sodium 135, chloride 100, creatinine 1.4, GFR 39, glucose 189. UA: No UA obtained in ED. CT abdomen and pelvis without contrast: Redemonstrated is an incarcerated lower abdominal wall hernia and small bowel obstruction with a mild interval increase in the bowel dilatation. The remaining findings are stable. In ED patient received Zofran4 mg IV, NG-tube was placed, and ED provider reported he reduced the hernia. ED provider request patient be admitted to the hospital with the diagnosis of SBO and ventral hernia. I assessed the patient at bedside in room number ED 19. Son was at bedside. The patient's breathing was even, unlabored, in no distress. The patient had NG-tube in place with 600 mL light green gastric secretions. I informed son and patient of labs, diagnostics, and plan of care. They verbalized understanding and are in agreement with the plan. Plan and assessment are listed below. REVIEW OF SYSTEMS 12-point ROS reviewed with the patient. All pertinent positives mentioned above. Otherwise negative, noncontributory, non-pertinent. PAST MEDICAL HISTORY: As mentioned above PAST SURGICAL HISTORY: Cholecystectomy, BTL, , back surgery, right 4th toe amputation, bilateral eye surgery. PAST SOCIAL HISTORY: Denies alcohol, tobacco, illicit drug use FAMILY HISTORY: Morbid obesity Coded Allergies: No Known Allergies (Unverified Allergy, Unknown, 4/13/23) PHYSICAL EXAM GENERAL APPEARANCE: The patient is awake, alert, and oriented, in no acute cardiopulmonary distress. NEUROLOGICAL: Cranial nerves II-XII grossly intact. Motor is 5/5 in bilateral upper and lower extremities proximal to distal. No sensory deficits. HEENT: Face is symmetric. Pupils are equal and reactive. Extraocular movements are intact. NECK: Supple. No JVD. No thyromegaly. No submental, submandibular, pre- /postauricular, occipital or supraclavicular lymphadenopathy. CHEST: Normal chest expansion. No Telemetry. LUNGS: Absence of any rales, rhonchi or any wheezing. CARDIOVASCULAR: Regular. S1 and S2 normal. No appreciable rubs, murmurs or gallops. ABDOMEN: Obese. Soft, nontender, and nondistended. There is no rebound, voluntary guarding, or rigidity. : Deferred. No [place]. EXTREMITIES: Non-edematous and not cyanotic. No clubbing. Good capillary refill. SKIN: No skin breakdown. Vital Sign (Last 24 Hours) 03/16/25 22:45 Temp 98.4 Pulse 80 Resp 18 B/P (MAP) 155/87 Pulse Ox 95 O2 Delivery Room Air* O2 Flow Rate 0 FiO2 21 LABS: Laboratory: Test 03/16/25 22:43 Range/Units White Blood Count 11.4 H 4.8-10.8 K/uL Red Blood Count 4.01 4.00-5.50 MIL/uL Hemoglobin 11.0 #L 12.0-16.0 g/dL Hematocrit 34.2 #L 36-48 % Mean Corpuscular Volume 85.3 79-99 fL Mean Corpuscular Hemoglobin 27.4 27.0-33.0 pg Mean Corpuscular Hemoglobin Concent 32.2 32.0-36.0 g/dL Red Cell Distribution Width 15.5 11.0-15.5 % Platelet Count 298 # 130-400 K/uL Mean Platelet Volume 11.0 H 7.5-10.5 fL Immature Granulocyte % (Auto) 0.5 0-1 % Neutrophils (%) (Auto) 74.2 40.0-77.0 % Lymphocytes (%) (Auto) 17.1 L 21.0-51.0 % Monocytes (%) (Auto) 6.2 3.0-13.0 % Eosinophils (%) (Auto) 1.6 0.0-8.0 % Basophils (%) (Auto) 0.4 0.0-5.0 % Neutrophils # (Auto) 8.4 H 1.8-7.7 K/uL Lymphocytes # (Auto) 1.9 1.0-4.8 K/uL Monocytes # (Auto) 0.7 0.1-1.0 K/uL Eosinophils # (Auto) 0.18 0.00-0.70 K/uL Basophils # (Auto) 0.04 0.00-0.20 K/uL Absolute Immature Granulocyte (auto 0.06 0-1 K/uL Nucleated Red Blood Cells 0.0 0.0-0.19 % Sodium Level 135 L 136-145 mmol/L Potassium Level 4.3 3.5-5.1 mmol/L Chloride Level 100 L 101-111 mmol/L Carbon Dioxide Level 27 21-32 mmol/L Blood Urea Nitrogen 17 7-18 mg/dL Creatinine 1.4 H 0.5-1.0 mg/dL Glomerular Filtration Rate Calc 39 >90 mL/min Random Glucose 189 H 70-105 mg/dL Lactic Acid Level 1.4 0.8-2.5 mmol/L Total Calcium 9.1 8.5-10.1 mg/dL DIAGNOSTICS / RADIOLOGY: [ ] ASSESSMENT: Small bowel obstruction with a mild interval increase in the bowel dilatation, per CT on 03/16/2025 Incarcerated lower abdominal wall hernia, per CT on 03/16/2025 Acute on chronic kidney disease stage III, GFR 39 (GFR 27-47 on 02/2025) Acute dehydration, POA Leukocytosis, POA anemia chronic disease Electrolyte derangement (hyponatremia, hypochloremia) Diabetes mellitus with hyperglycemia Chronic problem list: DM type 2, HTN, HDL, CVA, and prior SBO PLAN: Admit to medical floor with continuous telemetry monitoring. Consult general surgeon. NPO for now. LR at 100 mL an hour. Start Zosyn 3.375 empiric treatment. (leukocytosis, no UA provided by ED) Reconciled home medications: Simvastatin, losartan, vitamin-E. Hold aspirin for now due to possible surgery. Hold Toujeo Solostar and Janumet and start insulin regular sliding scale per protocol. Glucometer checks a.c. and HS with insulin regular sliding scale. P.r.n. medications for: Nausea, vomiting, pain management, fever, constipation, hypertension, shortness of breath. Blood pressure checks every4 hours and as needed. Monitor renal and liver function. Monitor electrolytes and treat accordingly. A.m. labs. GI and DVT prophylaxis. Further plan/orders per hospitalization course. ADVANCED CARE PLANNING 1. Which of the following were discussed? Comfort measures only/Hospice Care - no Therapeutic options - Yes Advance Directives - Yes Other discussions - 2. Discussed with who? The patient 3. Voluntary nature of this service was explained to the patient? Yes 4. Amount of time spent - __ Over 35 minutes 5. Reviewed by Physician? (if this service was performed by TREY) Yes ATTESTATION BY PHYSICIAN I have evaluated the patient chart, medical records, and spoke with appropriate staff. I reviewed the documentation, medical decision making, and treatment plan as noted by the TREY above. I agree with the findings and plan of care. COLT LEAVITT SYSTEMS INTEGRATION ENGINEER Mar 17, 2025 01:20
--- NOTE | 2025-03-17 01:48 | NUR ---
DAGMAR INBOUND TELEMARKETER AT BEDSIDE
--- NOTE | 2025-03-17 02:43 | NUR ---
REPORT GIVEN TO RADHA LAURA
[2025-03-17] MEDS ORDERED: 0.9%NACL 50ML IV SCH (05:00)
[2025-03-17] MEDS ORDERED: ALBUTEROL 0.083% 2.5 MG/3 ML INH IH PRN (05:00)
[2025-03-17] MEDS: ZOSYN 3.375GM +NS 50ML IVPB SCH (05:09)
[2025-03-17] MEDS: LACTATED RINGERS 1000ML 1,000 ML IV SCH (05:09)
[2025-03-17 05:50] LABS: APPEARANCE,URINE CLEAR (CLEAR); GLUCOSE, URINE (UA) NEGATIVE (NEGATIVE); LEUKOCYTE ESTERASE ,URINE NEGATIVE Leu/uL (NEGATIVE); NITRATE,URINE NEGATIVE (NEGATIVE); OCCULT BLOOD,URINE NEGATIVE (NEGATIVE)
[2025-03-17 05:51] LABS: ADD UA MICROSCOPIC NO
[2025-03-17 06:17] LABS: NUCLEATED RED BLOOD CELLS 0.0 % (0.0-0.19); PLATELET COUNT (AUTO) 249.0 K/uL (130-400); RED BLOOD CELL COUNT(AUTO) 3.54 MIL/uL (4.00-5.50); RED CELL DISTRIBUTION WIDTH 15.3 % (11.0-15.5); WHITE BLOOD COUNT (AUTO) 8.6 K/uL (4.8-10.8)
--- NOTE | 2025-03-17 06:23 | EKG ---
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
[2025-03-17 06:45] LABS: ASPARTATE AMINOTRANSFERASE 23.0 U/L (10-37); CREATININE 1.3 mg/dL (0.5-1.0); GLOMERULAR FILTR. RATE CALC 42.0 mL/min (>90); GLUCOSE,RANDOM 133.0 mg/dL (70-105); PHOSPHORUS 3.2 mg/dL (2.5-4.9); SODIUM SERUM 140.0 mmol/L (136-145); TOTAL PROTEIN, SERUM 6.1 g/dL (6.0-8.3); UREA NITROGEN, BLOOD 17.0 mg/dL (7-18)
[2025-03-17] MEDS: [UNRECOGNIZED DRUG - OTHER] PO SCH (07:46)
--- NOTE | 2025-03-17 10:42 | EKG ---
[facility] Test Date: 2025-03-16 Test Time: 22:42:53 Pat Name: KENIA ORTIZ Department: 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
--- NOTE | 2025-03-17 11:31 | CONS ---
GENERAL SURGERY CONSULTATION NOTE DATE OF CONSULTATION: Mar 17, 2025 TIME OF CONSULTATION: 11:28 CONSULTING SERVICE: Shadi Bailey MD REQUESTING PHYSICAIN: [ ] REASON FOR CONSULTATION: [ ] HISTORY OF PRESENT ILLNESS: 79-year-old female presented to the ER because of abdominal pain nausea and vomiting. NG tube was placed. Since the NG tube placement her abdominal pain has improved significantly passing gas now and has had two bowel movements this morning. Since NG tube placement it only had 150 mL out. Patient reports she has been having issues with the hernia for about a year but before that she has had it for over 30 years. PAST MEDICAL HISTORY: Obesity PAST SURGICAL HISTORY: Hysterectomy, C-sections, back surgery FAMILY HISTORY: [ ] SOCIAL HISTORY: [ ] Current Medications Medications (Trade) Dose Ordered Sig/Rafael Route Start Time Stop Time Status Last Admin Dose Admin Home Med (Home Medication) 1 each DAILY PO 03/17/25 09:00 04/16/25 08:59 Insulin Human Regular (humuLIN R 100 UNIT/ML 3ML) INSULIN SLIDING SCAL... ACHS SQ 03/17/25 07:30 04/16/25 07:29 Lactated Ringer's 1,000 ml @ 100 mls/hr Q10H IV 03/17/25 05:00 04/16/25 04:59 03/17/25 05:09 100 MLS/HR Losartan Potassium (CozAAR 25MG TAB) 25 mg DAILY PO 03/17/25 09:00 04/16/25 08:59 Piperacillin Sod/ Tazobactam Sod (Zosyn 3.375gm+NS 50ml) 3.375 gm Q8H IVPB 03/17/25 05:00 03/27/25 04:59 03/17/25 05:09 3.375 GM Simvastatin (zoCOR) 20 mg DAILY PO 03/17/25 09:00 03/17/25 07:51 DC Simvastatin (zoCOR) 20 mg HS PO 03/17/25 21:00 04/16/25 08:59 Sodium Chloride (NS 50ml) 50 ml AD IV 03/17/25 05:00 03/17/25 04:55 DC Allergies: Coded Allergies: No Known Allergies (Unverified Allergy, Unknown, 10/27/22) REVIEW OF SYSTEMS: [employer]: [Denies headaches or blurring of vision.] RESP: [No cough, chest pain or SOB.] CVS: [No palpitaions.] GI: [abdominal pain with nausea and vomiting, no diarrhea or constipation.] BERNICE: [No dysuria or hematuria.] Musculoskeletal: [No swelling or joint pain.] BACK: [No pain or swelling.] All other systems are reviewed and essentially negative pertinent positives in HPI. PHYSICAL EXAMINATION: GENERAL: [Patient is lying comfortably in bed, not in any obvious distress.] HEAD: [Normal with no signs of head trauma.] EYES: [Not pale not jaundiced afebrile to touch.] ENT: [ Normal.] NECK: [Supple,no tenderness,no lymphadenopathy,no masses,no thyromegaly ,no bruits, no JVD.] LUNGS: [Clear breath sounds bilaterally. No wheezes, rales, or rhonchi.] HEART: [Regular rate and rhythm. ABD: [Bowel sounds present,soft, umbilical hernia that is reducible and soft. Minimally tender. No rebound or peritonitis. No skin Changes NEURO: [ Awake Alert and oriented x3.] Vital Signs (last 8hr) Date Time Temp Pulse Resp B/P (MAP) Pulse Ox O2 Delivery O2 Flow Rate FiO2 03/17/25 08:00 98.1 78 18 142/52 94 Nasal Cannula 2.0 03/17/25 04:55 84 18 N/A Room Air 0.0 21 LABORATORY: [ ] Hematology Labs: Test 03/17/25 05:45 03/16/25 22:43 Range/Units White Blood Count 8.6 4.8-10.8 K/uL Red Blood Count 3.54 L 4.00-5.50 MIL/uL Hemoglobin 9.5 L 12.0-16.0 g/dL Hematocrit 30.2 L 36-48 % Mean Corpuscular Volume 85.3 79-99 fL Mean Corpuscular Hemoglobin 26.8 L 27.0-33.0 pg Mean Corpuscular Hemoglobin Concent 31.5 L 32.0-36.0 g/dL Red Cell Distribution Width 15.3 11.0-15.5 % Platelet Count 249 130-400 K/uL Mean Platelet Volume 10.4 7.5-10.5 fL Nucleated Red Blood Cells 0.0 0.0-0.19 % Immature Granulocyte % (Auto) 0.5 0-1 % Neutrophils (%) (Auto) 74.2 40.0-77.0 % Lymphocytes (%) (Auto) 17.1 L 21.0-51.0 % Monocytes (%) (Auto) 6.2 3.0-13.0 % Eosinophils (%) (Auto) 1.6 0.0-8.0 % Basophils (%) (Auto) 0.4 0.0-5.0 % Neutrophils # (Auto) 8.4 H 1.8-7.7 K/uL Lymphocytes # (Auto) 1.9 1.0-4.8 K/uL Monocytes # (Auto) 0.7 0.1-1.0 K/uL Eosinophils # (Auto) 0.18 0.00-0.70 K/uL Basophils # (Auto) 0.04 0.00-0.20 K/uL Absolute Immature Granulocyte (auto 0.06 0-1 K/uL Chemistry Labs: Test 03/17/25 05:45 03/17/25 05:03 03/16/25 22:43 Range/Units Sodium Level 140 136-145 mmol/L Potassium Level 4.1 3.5-5.1 mmol/L Chloride Level 104 101-111 mmol/L Carbon Dioxide Level 26 21-32 mmol/L Blood Urea Nitrogen 17 7-18 mg/dL Creatinine 1.3 H 0.5-1.0 mg/dL Glomerular Filtration Rate Calc 42 >90 mL/min Random Glucose 133 H 70-105 mg/dL Hemoglobin A1c 7.2 H 4.0-6.0 % Estimated Average Glucose (eAG) 160 H 70-126 mg/dL Total Calcium 8.7 8.5-10.1 mg/dL Phosphorus Level 3.2 2.5-4.9 mg/dL Magnesium Level 1.90 1.80-2.40 mg/dL Total Bilirubin 0.5 0.2-1.0 mg/dL Aspartate Amino Transf (AST/SGOT) 23 10-37 U/L Alanine Aminotransferase (ALT/SGPT) 21 12-78 U/L Alkaline Phosphatase 74 50-136 U/L Total Protein 6.1 6.0-8.3 g/dL Albumin 3.0 L 3.5-5.0 g/dL Lipase 26 16-77 U/L Thyroid Stimulating Hormone (TSH) 2.15 # 0.36-3.74 uIU/mL Whole Blood Glucose 141 H 70-110 MG/DL Lactic Acid Level 1.4 0.8-2.5 mmol/L DIAGNOSTICS / RADIOLOGY: [Copy/Paste Echos/Imaging Report here] ASSESSMENT: Umbilical hernia that had presented With a obstruction now reduced. PLAN: Clamped the NG tube for 6 hours. And then hooked back up to suctioned if output is less than 200 okay to remove the NG tube and start patient on a clear liquid diet. For now no plans for surgery. BERTHA PERRY MD Mar 17, 2025 11:31
--- NOTE | 2025-03-17 15:51 | NUR ---
D/C PLAN CM spoke to patient regarding d/c planning. Patient is a readmission from this hospital. Denies any changes to home setting or contact information. States she is still lives with son. Reports she has [facility] home [facility] for v/s checks. Patient has a walker at home. Plan for now is to return to same setting. Pending final general sx recs. Addendum: 03/17/25 at 1556 by NEGRO SAMUELS CM Amended: Links added.
--- NOTE | 2025-03-17 17:40 | NUR ---
Patient NGT output after being unclamped for 1 hour was 35mL. NGT discontinued. Patient tolerated well.
[2025-03-18] VITALS (8 sets, daily range): BP systolic 127–145; BP diastolic 58–69; PULSE 60–70; RESP 18–20; TEMP 97.8–98.7; O2SAT 95–98
--- NOTE | 2025-03-18 05:18 | HMCIMG ---
EXAM: CR Abdomen, 1 view. CLINICAL HISTORY: Nasogastric placement verification. COMPARISON: CR Abdomen. 03/13/2021. FINDINGS: Enteric tube tip in the mid stomach. Prominent small bowel loops measuring up to 5 cm. No free air evident. No abnormal calcification. No aggressive appearing osseous lesion. IMPRESSION: Enteric tube tip in the mid stomach. Prominent small bowel loops measuring up to 5 cm. This may be due to ileus or obstruction. /[place]
[2025-03-18 06:07] LABS: NUCLEATED RED BLOOD CELLS 0.0 % (0.0-0.19); PLATELET COUNT (AUTO) 244.0 K/uL (130-400); RED BLOOD CELL COUNT(AUTO) 3.21 MIL/uL (4.00-5.50); RED CELL DISTRIBUTION WIDTH 15.5 % (11.0-15.5); WHITE BLOOD COUNT (AUTO) 8.1 K/uL (4.8-10.8)
[2025-03-18 06:21] LABS: CREATININE 1.2 mg/dL (0.5-1.0); GLOMERULAR FILTR. RATE CALC 47.0 mL/min (>90); GLUCOSE,RANDOM 108.0 mg/dL (70-105); PHOSPHORUS 3.0 mg/dL (2.5-4.9); SODIUM SERUM 140.0 mmol/L (136-145); UREA NITROGEN, BLOOD 13.0 mg/dL (7-18)
[2025-03-18] MEDS: MAGNESIUM 2GM PREMIX 50ML 50 ML IV PRN (06:36)
--- NOTE | 2025-03-18 11:05 | PN ---
This is a 79-year-old female with ventral hernia Interval history: This 79-year-old female seen in her room resting Patient tolerating clear liquid diet No abdominal pain reported Hernia reduced yesterday by Dr. Dueñas Patient overall doing well Physical exam General: Awake alert and oriented Heart: Regular rate and rhythm} Lungs: Clear to auscultation no distress Abdomen: [Soft, nontender, nondistended ventral hernia reduced Assessment : This is a 79-year-old female with concerns of ventral hernia with resolving obstruction Plan: From surgical standpoint patient to advance diet Continue with the abdominal binder use Plan will be for continued conservative management with outpatient follow up for elective ventral hernia repair with Dr. Dueñas Nursing report any further acute events Vitals/Labs Vital Signs Date Time Temp Pulse Resp B/P (MAP) Pulse Ox O2 Delivery O2 Flow Rate FiO2 03/18/25 08:46 62 18 N/A Room Air 21 03/18/25 08:00 98.4 138/61 97 03/18/25 04:00 2.0 Laboratory Tests 03/18/25 05:24 Medications Current Medications Ondansetron HCl 4 mg ONCE ONCE IVP Last administered on 03/17/25at 00:19; Start 03/17/25 at 00:30; Stop 03/17/25 at 00:31; Status DC Ondansetron HCl 4 mg STK-MED ONCE .ROUTE; Start 03/17/25 at 00:02; Stop 03/17/25 at 00:17; Status DC Albuterol Sulfate 2.5 mg [id number] PRN IH; Start 03/17/25 at 05:00; Stop 04/16/25 at 04:59 Ipratropium [place] 0.5 mg [id number] PRN IH; Start 03/17/25 at 05:00; Stop 04/16/25 at 04:59 Lactated Ringer's 1,000 ml @ 100 mls/hr Q10H IV Last administered on 03/18/25at 00:35; Start 03/17/25 at 05:00; Stop 04/16/25 at 04:59 Acetaminophen 650 mg Q6H PRN PO; Start 03/17/25 at 05:00; Stop 04/16/25 at 04:59 Acetaminophen 650 mg Q6H PRN RC; Start 03/17/25 at 05:00; Stop 04/16/25 at 04:59 Temazepam 15 mg HS PRN PO; Start 03/17/25 at 05:00; Stop 04/16/25 at 04:59 Ondansetron HCl 4 mg Q6H PRN IVP; Start 03/17/25 at 05:00; Stop 04/16/25 at 04:59 Labetalol HCl 10 mg Q2H PRN IV; Start 03/17/25 at 05:00; Stop 03/17/25 at 11:46; Status DC Morphine Sulfate 4 mg Q4H PRN IVP; Start 03/17/25 at 05:00; Stop 03/24/25 at 04:59 Insulin Human Regular INSULIN SLIDING SCAL... ACHS SQ; Start 03/17/25 at 07:30; Stop 04/16/25 at 07:29 Piperacillin Sod/ Tazobactam Sod 3.375 gm Q8H IVPB Last administered on 03/18/25at 04:12; Start 03/17/25 at 05:00; Stop 03/27/25 at 04:59 Sodium Chloride 50 ml AD IV; Start 03/17/25 at 05:00; Stop 03/17/25 at 04:55; Status DC Losartan Potassium 25 mg DAILY PO Last administered on 03/18/25at 08:59; Start 03/17/25 at 09:00; Stop 04/16/25 at 08:59 Simvastatin 20 mg DAILY PO; Start 03/17/25 at 09:00; Stop 03/17/25 at 07:51; Status DC Home Med 1 each DAILY PO; Start 03/17/25 at 09:00; Stop 04/16/25 at 08:59 Simvastatin 20 mg HS PO Last administered on 03/17/25at 20:55; Start 03/17/25 at 21:00; Stop 04/16/25 at 08:59 Hydralazine HCl 5 mg Q6H PRN IV; Start 03/17/25 at 12:00; Stop 04/16/25 at 11:59 Magnesium Sulfate 50 ml @ 0 mls/hr PROTOCOL PRN IV Last administered on 03/18/25at 09:00; Start 03/18/25 at 06:30; Stop 04/17/25 at 06:29 MILI SIGALA Jr. Mar 18, 2025 11:05
--- NOTE | 2025-03-18 11:20 | PN ---
[facility] PROGRESS NOTE Date of Service: Mar 18, 2025 Time of Service: 11:18 SUBJECTIVE: 03/18 patient is seen and examined at bedside, remains admitted to medical floor, case discussed with the RN, no acute events overnight, time of my visit she is alert oriented x3, hemodynamically stable, via started on clear liquid diet, tolerating well, denies nausea, no vomiting, no abdominal pain. Hemoglobin 8.8 hematocrit 27.7. Magnesium level 1.7. We will give 2 g of magnesium sulfate, continue to follow a.m. labs, continue to follow surgical input and recommendations. Plan discussed with the patient, agreed and understood the information provided. REVIEW OF SYSTEMS 12-point ROS reviewed with the patient. All pertinent positives mentioned abo ve. Otherwise negative, noncontributory, non-pertinent. PHYSICAL EXAM GENERAL APPEARANCE: The patient is awake, alert, and oriented, in no acute cardiopulmonary distress. NEUROLOGICAL: Cranial nerves II-XII grossly intact. Motor is 5/5 in bilateral upper and lower extremities proximal to distal. No sensory deficits. HEENT: Face is symmetric. Pupils are equal and reactive. Extraocular movements are intact. NECK: Supple. No JVD. No thyromegaly. No submental, submandibular, pre- /postauricular, occipital or supraclavicular lymphadenopathy. CHEST: Normal chest expansion. No Telemetry. LUNGS: Absence of any rales, rhonchi or any wheezing. CARDIOVASCULAR: Regular. S1 and S2 normal. No appreciable rubs, murmurs or gallops. ABDOMEN: Obese. Soft, nontender, and nondistended. There is no rebound, voluntary guarding, or rigidity. : Deferred. No [place]. EXTREMITIES: Non-edematous and not cyanotic. No clubbing. Good capillary refill. SKIN: No skin breakdown. Vital Signs (last 8hr) Date Time Temp Pulse Resp B/P (MAP) Pulse Ox O2 Delivery O2 Flow Rate FiO2 03/18/25 08:46 62 18 N/A Room Air 21 03/18/25 08:00 98.4 60 18 138/61 97 Room Air 03/18/25 04:00 98.4 70 20 129/69 96 Nasal Cannula 2.0 LABS: Laboratory: Test 03/18/25 11:06 03/18/25 05:24 03/17/25 05:45 03/17/25 05:35 Range/Units Whole Blood Glucose 154 #H 70-110 MG/DL White Blood Count 8.1 4.8-10.8 K/uL Red Blood Count 3.21 L 4.00-5.50 MIL/uL Hemoglobin 8.8 L 12.0-16.0 g/dL Hematocrit 27.7 L 36-48 % Mean Corpuscular Volume 86.3 79-99 fL Mean Corpuscular Hemoglobin 27.4 27.0-33.0 pg Mean Corpuscular Hemoglobin Concent 31.8 L 32.0-36.0 g/dL Red Cell Distribution Width 15.5 11.0-15.5 % Platelet Count 244 130-400 K/uL Mean Platelet Volume 10.4 7.5-10.5 fL Nucleated Red Blood Cells 0.0 0.0-0.19 % Sodium Level 140 136-145 mmol/L Potassium Level 3.7 3.5-5.1 mmol/L Chloride Level 104 101-111 mmol/L Carbon Dioxide Level 28 21-32 mmol/L Blood Urea Nitrogen 13 7-18 mg/dL Creatinine 1.2 H 0.5-1.0 mg/dL Glomerular Filtration Rate Calc 47 >90 mL/min Random Glucose 108 H 70-105 mg/dL Total Calcium 8.3 L 8.5-10.1 mg/dL Phosphorus Level 3.0 2.5-4.9 mg/dL Magnesium Level 1.70 L 1.80-2.40 mg/dL Hemoglobin A1c 7.2 H 4.0-6.0 % Estimated Average Glucose (eAG) 160 H 70-126 mg/dL Total Bilirubin 0.5 0.2-1.0 mg/dL Aspartate Amino Transf (AST/SGOT) 23 10-37 U/L Alanine Aminotransferase (ALT/SGPT) 21 12-78 U/L Alkaline Phosphatase 74 50-136 U/L Total Protein 6.1 6.0-8.3 g/dL Albumin 3.0 L 3.5-5.0 g/dL Lipase 26 16-77 U/L Thyroid Stimulating Hormone (TSH) 2.15 # 0.36-3.74 uIU/mL Urine Color LIGHT-YELLOW YELLOW Urine Appearance CLEAR CLEAR Urine pH 5.5 5.0-8.0 Urine Specific [place] 1.017 1.001-1.031 Urine Protein NEGATIVE NEGATIVE mg/dL Urine Glucose (UA) NEGATIVE NEGATIVE mg/dL Urine Ketones NEGATIVE NEGATIVE mg/dL Urine Occult Blood NEGATIVE NEGATIVE Urine Nitrate NEGATIVE NEGATIVE Urine Bilirubin NEGATIVE NEGATIVE mg/dL Urine Urobilinogen 0.2 0.2-1.0 mg/dL Urine Leukocyte Esterase NEGATIVE NEGATIVE Zeinab/uL Test 03/16/25 22:43 Range/Units Immature Granulocyte % (Auto) 0.5 0-1 % Neutrophils (%) (Auto) 74.2 40.0-77.0 % Lymphocytes (%) (Auto) 17.1 L 21.0-51.0 % Monocytes (%) (Auto) 6.2 3.0-13.0 % Eosinophils (%) (Auto) 1.6 0.0-8.0 % Basophils (%) (Auto) 0.4 0.0-5.0 % Neutrophils # (Auto) 8.4 H 1.8-7.7 K/uL Lymphocytes # (Auto) 1.9 1.0-4.8 K/uL Monocytes # (Auto) 0.7 0.1-1.0 K/uL Eosinophils # (Auto) 0.18 0.00-0.70 K/uL Basophils # (Auto) 0.04 0.00-0.20 K/uL Absolute Immature Granulocyte (auto 0.06 0-1 K/uL Lactic Acid Level 1.4 0.8-2.5 mmol/L Current Medications Medications (Trade) Dose Ordered Sig/Rafael Route PRN Reason Start Time Stop Time Status Last Admin Dose Admin Acetaminophen (TYLenol 325MG TAB) 650 mg Q6H PRN PO FEVER/MILD PAIN LEVEL 1-3 03/17/25 05:00 04/16/25 04:59 Acetaminophen (TYLenol 650MG SUPPOSITORY) 650 mg Q6H PRN RC FEVER / MILD PAIN 1-3 IF NPO 03/17/25 05:00 04/16/25 04:59 Albuterol Sulfate (Proventil 0.083% 2.5mg/3ml) 2.5 mg [id number] PRN IH SHORTNESS OF BREATH 03/17/25 05:00 04/16/25 04:59 Home Med (Home Medication) 1 each DAILY PO 03/17/25 09:00 04/16/25 08:59 Hydralazine HCl (APRESOLine 20MG INJ) 5 mg Q6H PRN IV ADMINISTER FOR SBP > 160 03/17/25 12:00 04/16/25 11:59 Insulin Human Regular (humuLIN R 100 UNIT/ML 3ML) INSULIN SLIDING SCAL... ACHS SQ 03/17/25 07:30 04/16/25 07:29 Ipratropium [place] (AtrovENT UD) 0.5 mg [id number] PRN IH SHORTNESS OF BREATH/WHEEZING 03/17/25 05:00 04/16/25 04:59 Labetalol HCl (TRANdate 20MG SYG) 10 mg Q2H PRN IV SBP GREATER THAN 160 03/17/25 05:00 03/17/25 11:46 DC Lactated Ringer's 1,000 ml @ 100 mls/hr Q10H IV 03/17/25 05:00 04/16/25 04:59 03/18/25 11:16 100 MLS/HR Losartan Potassium (CozAAR 25MG TAB) 25 mg DAILY PO 03/17/25 09:00 04/16/25 08:59 03/18/25 08:59 25 MG Magnesium Sulfate 50 ml @ 0 mls/hr PROTOCOL PRN IV MAGNESIUM PROTOCOL 03/18/25 06:30 04/17/25 06:29 03/18/25 09:00 25 MLS/HR Morphine Sulfate (morPHINE 4MG SYG) 4 mg Q4H PRN IVP SEVERE PAIN (7-10) 03/17/25 05:00 03/24/25 04:59 Ondansetron HCl (zoFRAN 4MG INJ) 4 mg Q6H PRN IVP NAUSEA/VOMITING 03/17/25 05:00 04/16/25 04:59 Piperacillin Sod/ Tazobactam Sod (Zosyn 3.375gm+NS 50ml) 3.375 gm Q8H IVPB 03/17/25 05:00 03/27/25 04:59 03/18/25 04:12 3.375 GM Simvastatin (zoCOR) 20 mg DAILY PO 03/17/25 09:00 03/17/25 07:51 DC Simvastatin (zoCOR) 20 mg HS PO 03/17/25 21:00 04/16/25 08:59 03/17/25 20:55 20 MG Sodium Chloride (NS 50ml) 50 ml AD IV 03/17/25 05:00 03/17/25 04:55 DC Temazepam (restORIL 15 MG CAP) 15 mg HS PRN PO INSOMNIA/SLEEP 03/17/25 05:00 04/16/25 04:59 DIAGNOSTICS / RADIOLOGY: [ ] ASSESSMENT: Small bowel obstruction with a mild interval increase in the bowel dilatation, per CT on 03/16/2025 Incarcerated lower abdominal wall hernia, per CT on 03/16/2025 Acute on chronic kidney disease stage III, GFR 39 (GFR 27-47 on 02/2025) Acute dehydration, POA Leukocytosis, POA anemia chronic disease Electrolyte derangement (hyponatremia, hypochloremia) Diabetes mellitus with hyperglycemia Chronic problem list: DM type 2, HTN, HDL, CVA, and prior SBO PLAN: NEURO: Minimize central acting medications as possible. Fall Precautions. Well lighted room through the day and minimize interruptions through the night to prevent acute delirium. PULMONARY: Supplemental 02 as needed BiPAP as necessary, for respiratory distress Titrate Fio2 to keep Spo2 > or = 90% DuoNebs and CPT as needed IS hourly while awake for pulmonary hygiene prn Out of bed to chair as tolerated Maintain aspiration precautions at all times CARDIOVASCULAR: Follow hemodynamics. Vital signs per facility protocol GI & NUTRITION: Continue nutritional support Aspirations precautions Prokinetic agents and laxatives as needed KIDNEYS & ELECTROLYTES: Strict monitoring of intake and output Daily weights Avoid nephrotoxic agents Monitor electrolytes and replace as needed Goal urine output of 30mL/hr or 0.5mL/kg/hr Medications to be dosed according to renal function. Avoid contrast if possible ENDOCRINE: Maintain blood glucose between 100-180 at all times. Insulin sliding scale for blood glucose management Hypoglycemia and hyperglycemia protocol in place INFECTIOUS DISEASE: Trend temperature, WBC and procalcitonin level Follow cultures, deescalate antibiotics as soon as possible. Panculture if new onset fever HEMATOLOGY & COAGULATION: Monitor H&H. Keep Hgb > 7 Transfuse 1 unit of PRBC for Hgb < 7 Transfuse 1 pack of platelets of platelets < 20, 000 Watch for any signs and symptoms of bleeding SKIN: Pressure ulcer prevention per facility protocol Specialty mattress as needed ORTHO/REHAB Continue PT/OT PRN: MEDICATIONS Tylenol 650 mg po every 4 hrs for fever zofran 4 mg IV every 6 hrs for n/v Hydralazine 5 mg IV every 4 hrs systolic pressure > 160 bowel regiment: lactulose 20 gm PO BID PRN constipation Supportive measures: Continue GI and DVT prophylaxis Disposition: Pending improvement in clinical condition. All questions answered time spent: > 35 min EKVIN MUNIZ MD Mar 18, 2025 11:20
[2025-03-18] MEDS ORDERED: MAGNESIUM 2GM PREMIX 50ML 50 ML IV SCH (11:30)
[2025-03-19] VITALS (7 sets, daily range): BP systolic 110–139; BP diastolic 50–60; PULSE 64–94; RESP 18–19; TEMP 97.5–98.1; O2SAT 92–98
[2025-03-19 06:05] LABS: NUCLEATED RED BLOOD CELLS 0.0 % (0.0-0.19); PLATELET COUNT (AUTO) 255.0 K/uL (130-400); RED BLOOD CELL COUNT(AUTO) 3.25 MIL/uL (4.00-5.50); RED CELL DISTRIBUTION WIDTH 15.1 % (11.0-15.5); WHITE BLOOD COUNT (AUTO) 10.0 K/uL (4.8-10.8)
[2025-03-19 06:32] LABS: ASPARTATE AMINOTRANSFERASE 18.0 U/L (10-37); CREATININE 1.4 mg/dL (0.5-1.0); GLOMERULAR FILTR. RATE CALC 39.0 mL/min (>90); GLUCOSE,RANDOM 147.0 mg/dL (70-105); SODIUM SERUM 139.0 mmol/L (136-145); TOTAL PROTEIN, SERUM 5.7 g/dL (6.0-8.3); UREA NITROGEN, BLOOD 13.0 mg/dL (7-18)
[2025-03-19] MEDS: PoTASSium chloRIDE 20MEQ ER 20 MEQ ERTAB PO ONE (09:54)
--- NOTE | 2025-03-19 09:58 | NUR ---
Nutrition consult per eval Reviewed labs, notes, and medications. Pt with abd. distention, pending surgeon consult, tolerating diet, on GI soft/bland diet, IV abx, BG 154(H), A1C 7.2, Mg 1.70(L), Ca 8.3(L) per chart review. Low albumin may be due to inflammation. A1C <8 for geriatric patients. -100 ml balance 03/17/25, wt via bed scale, last BM 03/17/25, NG tube in place, no edema, well nourished, no wounds per nursing. Recommendations: -Provide GI soft bland diet + HH diet + 60 gm cho + prostat jello w/ dinner tray -Monitor PO intake -Encourage PO intake as able -Monitor BM -If no BM >3 days consider stool softener -Monitor electrolytes -Replenish electrolytes per protocol -Monitor wts -Reweigh as able -Order Vit D, vit b-12 labs to rule out deficiencies -Provide MVI QD -Texture per TAX RECORD CLERK recs -Recommend Pt to follow up with PCP -Monitor goals of care RD to follow + available for consult per protocol Addendum: 03/19/25 at [address] Amended: Links added.
--- NOTE | 2025-03-19 13:07 | DS ---
Discharge Summary Hospital Course Summary: Patient initially admitted to the hospital March 17, 2025 with the following history of the present illness: Ms Huang is a 79-year-old female with a history of DM type 2, HTN, HDL, CVA, obesity, and prior SBO who [place] [facility] [place] evaluation of abdominal pain and abdominal distention onset 03/16/2025. The patient reported that she was recently discharged and was diagnosed with small-bowel obstruction secondary to ventral hernia. Patient is pending to see her PCP and the surgeon. The patient denied fever, chills, chest pain, shortness of breath, any other pain, problem or concern. The patient arrived to the ED with a blood pressure of 134/64, 82 bpm, RR 22 b pm, 93% on room air, temperature 98.4 F. Labs: WBC 11.4, hemoglobin 11.0, hematocrit 34.2, sodium 135, chloride 100, creatinine 1.4, GFR 39, glucose 189. UA: No UA obtained in ED. CT abdomen and pelvis without contrast: Redemonstrated is an incarcerated lower abdominal wall hernia and small bowel obstruction with a mild interval increase in the bowel dilatation. The remaining findings are stable. In ED patient received Zofran4 mg IV, NG-tube was placed, and ED provider reported he reduced the hernia. ED provider request patient be admitted to the hospital with the diagnosis of SBO and ventral hernia. I assessed the patient at bedside in room number ED 19. Son was at bedside. The patient's breathing was even, unlabored, in no distress. The patient had NG-tube in place with 600 mL light green gastric secretions. I informed son and patient of labs, diagnostics, and plan of care. They verbalized understanding and are in agreement with the plan. Plan and assessment are listed below. HOSPITAL COURSE 03/18 patient is seen and examined at bedside, remains admitted to medical floor, case discussed with the RN, no acute events overnight, time of my visit she is alert oriented x3, hemodynamically stable, via started on clear liquid diet, tolerating well, denies nausea, no vomiting, no abdominal pain. Hemoglobin 8.8 hematocrit 27.7. Magnesium level 1.7. We will give 2 g of magnesium sulfate, continue to follow a.m. labs, continue to follow surgical input and recommendations. Plan discussed with the patient, agreed and understood the information provided. 03/19 THE PATIENT IS ALERT ORIENTED X3, HEMODYNAMICALLY STABLE, TOLERATING SOFT DIET, NO NAUSEA, NO VOMITING, NO ABDOMINAL DISCOMFORT, PASSING GAS, HAD A BOWEL MOVEMENT, SOLID, NO DIARRHEA, SHE WOULD LIKE TO BE DISCHARGED HOME. Production Coordinator(s): General surgeon Assessment/Plan: FINAL DIAGNOSIS Small bowel obstruction with a mild interval increase in the bowel dilatation, per CT on 03/16/2025 Incarcerated lower abdominal wall hernia, per CT on 03/16/2025 Acute on chronic kidney disease stage III, GFR 39 (GFR 27-47 on 02/2025) Acute dehydration, POA Leukocytosis, POA anemia chronic disease Electrolyte derangement (hyponatremia, hypochloremia) Diabetes mellitus with hyperglycemia Chronic problem list: DM type 2, HTN, HDL, CVA, and prior SBO PLAN: Discharge Instructions: THE PATIENT TO BE DISCHARGED HOME, TO FOLLOW UP WITH PRIMARY CARE PHYSICIAN AND SO GENERAL SURGERY AN OUTPATIENT. FROM SURGICAL STANDPOINT, PLAN WILL BE FOR CONTINUED CONSERVATIVE MANAGEMENT WITH OUTPATIENT FOLLOW UP FOR ELECTIVE VENTRAL HERNIA REPAIR WITH DR. PERRY. PATIENT WAS ADVISED TO RETURN TO THE HOSPITAL IF HER CONDITION CHANGES. PATIENT AGREED WITH THE PLAN AND UNDERSTOOD THE INFORMATION PROVIDED. Home Medications: Reported Medications Simvastatin (Simvastatin) 20 Mg Tablet, 1 TAB PO DAILY 03/13/25 Vit C/E/Zn/Coppr/Lutein/Zeaxan (Preservision Areds 2 Softgel) 250MG-90MG Capsule, 1 EACH PO DAILY, CAP 12/16/24 Losartan Potassium (Losartan Potassium) 25 Mg Tablet, 1 TAB PO DAILY 12/16/24 Insulin Glargine,Hum.rec.anlog (Hannah Hernandez) 300 Unit/Ml (1.5 Ml) Insuln.pen, 16 UNITS SQ HS 12/16/24 Sitagliptin Phos/Metformin HCl (Janumet 50-1,000 mg Tablet) 50 Mg-1,000 Mg Tablet, 1 TAB PO DAILY 12/16/24 Aspirin (Aspirin) 81 Mg Tab.chew, 81 MG PO DAILY, TAB.CHEW 10/28/22 Discontinued Reported Medications Meclizine HCl (Meclizine HCl) 12.5 Mg Tablet, 1 TAB PO BID PRN for DIZZINESS 12/16/24 Ferrous Sulfate (Ferosul) 325 Mg (65 Mg Iron) Tablet, 1 TAB PO DAILY 6/2/25 Simvastatin (ZOCOR) 40 Mg Tablet, 20 MG PO HS, TAB 10/28/22 Discontinued Scripts Cephalexin Monohydrate (Keflex) 500 Mg Cap, 1 CAP PO BID for 7 Days, #14 CAP 0 Refills Prov:OPAL FISCHER AGPCNP 12/18/24 Time spent arranging discharge: 31-60 minutes KEVIN MUNIZ MD Mar 19, 2025 13:07
--- NOTE | 2025-03-19 16:39 | PN ---
This is a 79-year-old female with a ventral hernia Interval history: This 79-year-old female seen in her room resting Patient tolerating diet No abdominal pain Patient with stable labs unremarkable vitals Physical exam General: Awake alert and oriented Heart: Regular rate and rhythm} Lungs: Clear to auscultation no distress Abdomen: [Soft, nontender, nondistended large ventral hernia Assessment : This is a 79-year-old female with ventral hernia Plan: From surgical standpoint with no emergent need for surgical intervention patient to follow up in outpatient setting Patient to continue with high-fiber diet and avoid constipation Follow up in 1-2 weeks with surgical team All Nursing report any further acute events Patient is cleared from surgical standpoint for discharge to nursing facility Vitals/Labs Vital Signs Date Time Temp Pulse Resp B/P (MAP) Pulse Ox O2 Delivery O2 Flow Rate FiO2 03/19/25 12:00 97.5 64 19 134/58 96 Room Air 21 03/19/25 07:30 0 Laboratory Tests 03/19/25 05:21 Medications Current Medications Ondansetron HCl 4 mg ONCE ONCE IVP Last administered on 03/17/25at 00:19; Start 03/17/25 at 00:30; Stop 03/17/25 at 00:31; Status DC Ondansetron HCl 4 mg STK-MED ONCE .ROUTE; Start 03/17/25 at 00:02; Stop 03/17/25 at 00:17; Status DC Albuterol Sulfate 2.5 mg [id number] PRN IH; Start 03/17/25 at 05:00; Stop 04/16/25 at 04:59 Ipratropium [place] 0.5 mg [id number] PRN IH; Start 03/17/25 at 05:00; Stop 04/16/25 at 04:59 Lactated Ringer's 1,000 ml @ 100 mls/hr Q10H IV Last administered on 03/19/25at 04:09; Start 03/17/25 at 05:00; Stop 04/16/25 at 04:59 Acetaminophen 650 mg Q6H PRN PO; Start 03/17/25 at 05:00; Stop 04/16/25 at 04:59 Acetaminophen 650 mg Q6H PRN RC; Start 03/17/25 at 05:00; Stop 04/16/25 at 04:59 Temazepam 15 mg HS PRN PO; Start 03/17/25 at 05:00; Stop 04/16/25 at 04:59 Ondansetron HCl 4 mg Q6H PRN IVP; Start 03/17/25 at 05:00; Stop 04/16/25 at 04:59 Labetalol HCl 10 mg Q2H PRN IV; Start 03/17/25 at 05:00; Stop 03/17/25 at 11:46; Status DC Morphine Sulfate 4 mg Q4H PRN IVP; Start 03/17/25 at 05:00; Stop 03/24/25 at 04:59 Insulin Human Regular INSULIN SLIDING SCAL... ACHS SQ Last administered on 03/18/25at 20:52; Start 03/17/25 at 07:30; Stop 04/16/25 at 07:29 Piperacillin Sod/ Tazobactam Sod 3.375 gm Q8H IVPB Last administered on 03/19/25at 12:10; Start 03/17/25 at 05:00; Stop 03/27/25 at 04:59 Sodium Chloride 50 ml AD IV; Start 03/17/25 at 05:00; Stop 03/17/25 at 04:55; Status DC Losartan Potassium 25 mg DAILY PO Last administered on 03/19/25at 08:14; Start 03/17/25 at 09:00; Stop 04/16/25 at 08:59 Simvastatin 20 mg DAILY PO; Start 03/17/25 at 09:00; Stop 03/17/25 at 07:51; Status DC Home Med 1 each DAILY PO; Start 03/17/25 at 09:00; Stop 04/16/25 at 08:59 Simvastatin 20 mg HS PO Last administered on 03/18/25at 20:51; Start 03/17/25 at 21:00; Stop 04/16/25 at 08:59 Hydralazine HCl 5 mg Q6H PRN IV; Start 03/17/25 at 12:00; Stop 04/16/25 at 11:59 Magnesium Sulfate 50 ml @ 0 mls/hr PROTOCOL PRN IV Last administered on 03/18/25at 09:00; Start 03/18/25 at 06:30; Stop 04/17/25 at 06:29 Magnesium Sulfate 50 ml @ 0 mls/hr PROTOCOL IV; Start 03/18/25 at 11:30; Stop 03/18/25 at 11:22; Status DC Potassium Chloride 40 meq ONCE ONCE PO Last administered on 03/19/25at 09:54; Start 03/19/25 at 10:00; Stop 03/19/25 at 10:01; Status DC MILI SIGALA Jr. Mar 19, 2025 16:39
--- NOTE | 2025-03-19 18:22 | NUR ---
DISCHARGE PIV DC'D PATIENT INFORMED TO FOLLOW UP WITH PRIMARY CARE PROVIDER PATIENT INFORMED TO FOLLOW UP WITHIN A WEEK WITH DR. PERRY QUESTIONS ANSWERED PRIOR TO DISCHARGE
== END 2025-03-19 18:05 | disposition home or self-care (01) | DRG 394 ==
LOC: EDH 22:30 → EDHIP 03-17 01:16 → 3CH 03-17 02:48
PROVIDERS: ADMIT Hospitalist; ATTEND Hospitalist
PROC: 0D9670Z Drainage of Stomach with Drainage Device, Via Natural or Artificial Opening (ICD-10-PCS; principal; 2025-03-17)
DX: K43.6 Other and unspecified ventral hernia with obstruction, without gangrene (principal); E87.1 Hypo-osmolality and hyponatremia; N17.9 Acute kidney failure, unspecified; K42.0 Umbilical hernia with obstruction, without gangrene; E86.0 Dehydration; N18.30 Chronic kidney disease, stage 3 unspecified; E11.65 Type 2 diabetes mellitus with hyperglycemia; E11.22 Type 2 diabetes mellitus with diabetic chronic kidney disease; I12.9 Hypertensive chronic kidney disease with stage 1 through stage 4 chronic kidney disease, or unspecified chronic kidney disease; E87.8 Other disorders of electrolyte and fluid balance, not elsewhere classified; D72.829 Elevated white blood cell count, unspecified; E66.9 Obesity, unspecified; E78.00 Pure hypercholesterolemia, unspecified; Z79.899 Other long term (current) drug therapy; Z86.73 Personal history of transient ischemic attack (TIA), and cerebral infarction without residual deficits; Z90.710 Acquired absence of both cervix and uterus; Z98.51 Tubal ligation status; Z98.891 History of uterine scar from previous surgery; Z68.33 Body mass index [BMI] 33.0-33.9, adult; D63.8 Anemia in other chronic diseases classified elsewhere
CPT/HCPCS: 36415; 74018; 74176; 80048; 80053; 81003; 82948; 83036; 83605; 83690; 83735; 84100; 84443; 85025; 85027; 86850; 86900; 86901; 93005; 99285; G0378; J1815; J2405; J2543; J3475; A4510

== ENCOUNTER 2025-05-02 07:38 | Day surgery (SDC) | payer MEDICARE ==
[2025-04-28 10:08] VITALS: BP 130/55; PULSE 70; RESP 14; TEMP 97.5
[2025-04-28 10:12] LABS: IMMATURE GRANULOCYTE ABSOLUTE 0.02 K/uL (0-1); NUCLEATED RED BLOOD CELLS 0.0 % (0.0-0.19); PLATELET COUNT (AUTO) 281 K/uL (130-400); RED BLOOD CELL COUNT(AUTO) 3.60 MIL/uL (4.00-5.50); RED CELL DISTRIBUTION WIDTH 15.2 % (11.0-15.5); WHITE BLOOD COUNT (AUTO) 9.3 K/uL (4.8-10.8)
[2025-04-28 10:25] LABS: INR 1.01 (0.85-1.15)
[2025-04-28 10:29] LABS: ASPARTATE AMINOTRANSFERASE 18.0 U/L (10-37); CREATININE 1.3 mg/dL (0.5-1.0); GLOMERULAR FILTR. RATE CALC 42.0 mL/min (>90); GLUCOSE,RANDOM 130.0 mg/dL (70-105); SODIUM SERUM 142.0 mmol/L (136-145); TOTAL PROTEIN, SERUM 7.0 g/dL (6.0-8.3); UREA NITROGEN, BLOOD 30.0 mg/dL (7-18)
[2025-04-28 10:33] LABS: APPEARANCE,URINE CLEAR (CLEAR); GLUCOSE, URINE (UA) NEGATIVE (NEGATIVE); LEUKOCYTE ESTERASE ,URINE NEGATIVE Leu/uL (NEGATIVE); NITRATE,URINE NEGATIVE (NEGATIVE); OCCULT BLOOD,URINE NEGATIVE (NEGATIVE)
--- NOTE | 2025-04-28 10:39 | EKG ---
[facility] Test Date: 2025-04-28 Test Time: 09:55:32 Pat Name: KENIA ORTIZ Department: [facility] Room: Gender: F B2B Appointment Setter: [id number] : 1945 Requested By: BERTHA PERRY Order Number: [id number] Reading MD: Jaja Cuba Measurements Intervals Morse Rate: 70 P: 20 AL: 154 QRS: -1 QRSD: 87 T: 48 QT: 392 QTc: 425 Interpretive Statements Sinus rhythm Compared to ECG 03/17/2025 06:18:15 T-wave abnormality no longer present Electronically Signed On 04-30-2025 10:15:14 CDT by Jaja Cuba Please click the below link to view image of tracing.
[2025-04-28 10:47] LABS: ADD UA MICROSCOPIC YES; YEAST,URINE BUDDING Rare /HPF (None Seen); YEAST,URINE HYPHAE Rare /HPF (None Seen)
[2025-04-28 10:48] LABS: SQUAMOUS EPITHELIAL CELL,UR Rare /HPF (0-2)
--- NOTE | 2025-05-01 15:38 | NUR ---
RE: LABS REPORTED HGB 9.6/HCT 30.1 TO JOHN/DR PERRY. RECEIVED ORDERS FOR TYPE/SCREEN IN AM AND 1 UNIT PRBCS ON HOLD TO OR.
[2025-05-02] VITALS (17 sets, daily range): BP systolic 108–136; BP diastolic 49–65; PULSE 72–87; RESP 15–20; TEMP 96.1–97.8
[~2025-05-02] VITALS: Ht 162.6 cm; Wt 84.8 kg
[~2025-05-02 07:38] MED LIST changes: +0.9%NACL 1000ML 1,000 ML IV ONE; +AREDS 2 PO; +FERR-72 PO; +LATA2.5D7 OP; +MECL-226 PO; -VIT1CAPS47 PO
[2025-05-02] MEDS ORDERED: LIDOCAINE PF 100MG/5ML (2%) SYRINGE 5ML ONE (08:47)
[2025-05-02] MEDS ORDERED: SUCCINYLCHOLINE CHLORIDE 20 MG/ML 10 ML VIAL ONE (08:47)
[2025-05-02] MEDS ORDERED: NEOSTIGMINE METHYLSULFATE 1MG/ML IV ONE (10:28)
[2025-05-02] MEDS ORDERED: GLYCOPYRROLATE 0.2 MG/ML 5 ML VIAL ONE (10:28)
--- NOTE | 2025-05-02 12:16 | NUR ---
POST-SURGICAL 3 INCISIONS TO UPPER ANTERIOR ABDOMEN. DERMABOND TO ALL 3 INCISIONS SLIGHT REDNESS TO ALL 3 INCISIONS. NO ACTIVE BLEEDING OR DRAINAGE NOTED. NO SWELLING NOTED. 1 INCISION TO BELLY BUTTON ADHESIVE PAD TO BELLY BUTTON. DONALDO PRAT DRAIN ATTACHED TO BELLY BUTTON. DONALDO BEASLEY DRAIN AGAINST ABDOMEN WITH ADHESIVE PAD. INSTRUCTED SON HOW TO EMPTY DONALDO BEASLEY DRAINAGE. RED DRAINAGE 30CC REMOVED FROM DONALDO BESALEY DRAIN. DONALDO PAT DRAIN INTACT.
--- NOTE | 2025-05-02 13:17 | OP ---
Operative Note: DATE OF PROCEDURE: 05/02/25 SURGEON: BERTHA PERRY MD INVOICE CLASSIFICATION CLERK: [] Anesthesiologists: Asael VERNON PREOPERATIVE DIAGNOSIS: Umbilical hernia incarcerated POSTOPERATIVE DIAGNOSIS: 4*4cm umbilical hernia not obstructed incarcerated PROCEDURE: Robotic ventral hernia repair with mesh placement INDICATIONS: Patient with symptomatic ventral hernia DESCRIPTION OF PROCEDURE: Patient is brought to the operating room placed on the operating table in the supine position. Once general endotracheal anesthesia is achieved patient's abdomen is prepped and draped in sterile fashion. We created a small angelo incision in left upper quadrant at Martin's point. Under direct visualization with Optiview went through the abdominal wall and entered the abdominal cavity. And pneumoperitoneum obtained. And then under direct visualization proceeded to introduce other 8 mm trochars one in the l right upper quadrant and the other one in the epigastrium to the left of the falciform . And then switched out the 5 mm trocar from the left upper quadrant to an 8 mm trocar. We then brought the robot over top of the patient's right flank and proceeded to dock it, with the patient rotated towards the right and the bed flexed at the hips to prevent injury to the face and the hips. We identified the hernia at the umbilicus. There was a large amount of omentum and small bowel incarcerated within the hernia. Very carefully we reduced the small bowel 1st using the small grasper. Once completely reduced we then proceeded to reduce the omentum that was incarcerated. And once completely reduced, we then proceeded to develop the peritoneal flap with the scissors with cautery was started before the defect and then went past the defect took down the hernia sac with sharp and blunt dissection. Once down all the hernia sac was reduced and we had developed our peritoneal flap past the level of the defect then proceeded to introduce the ruler and measured the defect at 4*4 cm. We then proceeded to introduce an 8 cm mesh that will give us enough overlay. And then with OV lock proceeded to close the defect primarily while the pressure down to 10. Once the defect was completely closed we proceeded to place the mesh8 cm circular Phasix mesh in an underlay fashion. And secured it to the abdominal wall using 2 OV lock. And then closed our peritoneal flap to cover the mesh completely. The peritoneal flap was closed with a 2 OV lock as well. No bleeding was observed no injuries noted. The robot is undocked all needles are removed from the abdomen. We removed our trochars. Skin incisions were closed with 4-0 Monocryl running subcuticular fashion and Dermabond. Patient tolerated the procedure well ESTIMATED BLOOD LOSS: 5 cc Devices left in place: Circular mesh 8 cm diameter. See implant report for detail. Anesthesia: General endotracheal Complications: None immediate Specimens removed: Hernia sac BERTHA PERRY MD May 02, 2025 13:17
== END 2025-05-02 13:24 | disposition home or self-care (01) ==
LOC: DAH 07:38
PROVIDERS: ATTEND Student in an Organized Health Care Education/Training Program
DX: K42.0 Umbilical hernia with obstruction, without gangrene (principal); K43.6 Other and unspecified ventral hernia with obstruction, without gangrene; I12.0 Hypertensive chronic kidney disease with stage 5 chronic kidney disease or end stage renal disease; E11.22 Type 2 diabetes mellitus with diabetic chronic kidney disease; N18.6 End stage renal disease; E78.5 Hyperlipidemia, unspecified; Z90.49 Acquired absence of other specified parts of digestive tract; Z98.51 Tubal ligation status; Z89.421 Acquired absence of other right toe(s); Z87.891 Personal history of nicotine dependence; Z79.82 Long term (current) use of aspirin; Z79.01 Long term (current) use of anticoagulants; Z79.899 Other long term (current) drug therapy; Z86.73 Personal history of transient ischemic attack (TIA), and cerebral infarction without residual deficits
CPT/HCPCS: 80053; 85025; 85610; 85730; 81003; 81001 ×2; 36415 ×2; 93005; 49594; 86850; 86900; 86901; 86923; 82948 ×2; 64488; A6260; A4663; J7030 ×2; J3010; J0330; J3490 ×3; J2003; J2704; J2405; J2710; J0665; J2795; J2371; J0690; C1781; A4215; A4213; A4222; A4221; A4216; A4450; A4223 ×2; A4600

== ENCOUNTER 2025-05-11 08:07 | Emergency (ER) | payer MEDICARE ==
[~2025-05-11] VITALS: Ht 162.6 cm; Wt 84.8 kg
[~2025-05-11 08:07] MED LIST changes: -0.9%NACL 1000ML 1,000 ML IV ONE
--- NOTE | 2025-05-11 08:37 | ERN ---
General Chief Complaint: Wound Check Stated Complaint: WOUND CHECK Time Seen by MD: 08:09 Source: patient History of Present Illness Initial Comments PATIENT IS A 79-YEAR-OLD FEMALE COMING IN COMPLAINING OF UMBILICAL HERNIA DRAIN ISSUES. PER PATIENT SHE RECENTLY HAS A UMBILICAL HERNIA REPAIR STATES HER DRAIN WAS WORKING UNTIL YESTERDAY WERE SUFFER WORKING. Allergies: Coded Allergies: No Known Allergies (Unverified Allergy, Unknown, 10/27/22) Home Meds Reported Medications Ferrous Sulfate (Ferrous Sulfate) 325 Mg (65 Mg Iron) Tablet, 325 MG PO AM, TAB 04/28/25 Latanoprost (Latanoprost) 0.005 % Drops, 2.5 ML OP PM, DROP 04/28/25 Meclizine HCl (Meclizine HCl) 12.5 Mg Tablet, 12.5 MG PO AM, TAB 04/28/25 [Areds 2] No Conflict Check, 1 TAB PO AM 04/28/25 Simvastatin (Simvastatin) 20 Mg Tablet, 1 TAB PO DAILY 03/13/25 Losartan Potassium (Losartan Potassium) 25 Mg Tablet, 1 TAB PO DAILY 12/16/24 Insulin Glargine,Hum.rec.anlog (Toudevi Solamyar) 300 Unit/Ml (1.5 Ml) Insuln.pen, 16 UNITS SQ HS 12/16/24 Sitagliptin Phos/Metformin HCl (Janumet 50-1,000 mg Tablet) 50 Mg-1,000 Mg Tablet, 1 TAB PO DAILY 12/16/24 Aspirin (Aspirin) 81 Mg Tab.chew, 81 MG PO DAILY, TAB.CHEW 10/28/22 Past Medical History Past Medical History: Diabetes-Type II, Hypertension, Stroke Medical History Other: SBO Past Surgical History: Cholecystectomy, Other, Surgical History Other: ABD HERNIA, RT FOOT TOE AMP, BACK SX Social History Social History: Negative, Lives with family Female( History) History: Not Applicable ROS Dictation CONSTITUTIONAL: NO CHILLS, NO FEVER, NO WEAKNESS, NO DIAPHORESIS, NO MALAISE. HEAD/FACE: NO SIGNS OF TRAUMA. EENT: NO EYE PAIN, NO BLURRED VISION, NO TEARING, NO DOUBLE VISION, NO EAR PAIN, NO EAR DISCHARGE, NO NOSE PAIN, NO NASAL CONGESTION, NO THROAT PAIN, NO THROAT SWELLING, NO MOUTH PAIN. RESPIRATORY: NO COUGH, NO ORTHOPNEA, NO SOB, NO STRIDOR, NO WHEEZING. CARDIOVASCULAR: NO CHEST PAIN, NO EDEMA, NO PALPITATIONS, NO SYNCOPE. GASTROINTESTINAL/ABDOMINAL: NO ABDOMINAL PAIN, NO CONSTIPATION, NO DIARRHEA, NO NAUSEA, NO VOMITING. GENITOURINARY: NO ABNORMAL DISCHARGE, NO DYSURIA, NO FREQUENT URINATION, NO HEMATURIA. NO COMPLAINTS OF PAIN IN THE GENITALS. MUSCULOSKELETAL: NO BACK PAIN, NO GOUT, NO JOINT PAIN, NO JOINT SWELLING, NO MUSCLE PAIN, NO MUSCLE STIFFNESS, NO NECK PAIN. INTEGUMENTARY: NO CHANGE IN COLOR, NO CHANGE IN HAIR/NAILS, NO DRYNESS, NO LESION, NO LUMPS, NO RASH. NEUROLOGICAL/PSYCH: NO ANXIETY, NOT DEPRESSED, NO EMOTIONAL PROBLEM, NO HEADAC HE, NO NUMBNESS, NO PRE-EXISTING DEFICIT, NO HISTORY OF SEIZURES, NO TREMORS, NO WEAKNESS. HEMATOLOGIC/LYMPHATIC: NOT ANEMIC, NO HISTORY OF BLOOD CLOTS, NO APPARENT BLEEDING, NO BRUISING, GLANDS NOT SWOLLEN. ALL SYSTEMS NEGATIVE, EXCEPT NOTED. Physical Exam Physical Exam Dictation VITAL SIGNS: REVIEWED. GENERAL APPEARANCE: ALERT, ORIENTED X3, NO ACUTE DISTRESS, OBESE. HEAD AND FACE: NON-TRAUMATIC. EYES: PERRL, PINK CONJUNCTIVAS, EYELID NO TRAUMA, ANTERIOR CHAMBER CLEAR. EARS: PINNAS INTACT AND NO SIGNS OF TRAUMA OR ERYTHEMA. EAR CANALS CLEAR AND NO DISCHARGE. TMS NO ERYTHEMA. NOSE: NO DISCHARGE, NO BLEEDING. OROPHARYNX: MOUTH NORMAL, TEETH NO CARIES, TONGUE PINK. PHARYNX CLEAR, NO ERYTHEMA. TONSILS NO EXUDATES, NO ABSCESSES NOTED. MUCOUS MEMBRANE MOIST. NECK: SUPPLE, NON-TENDER, NO THYROMEGALY, NO MASSES, NO JVD, NO BRUITS. BREAST: DEFERRED. CHEST: NO TENDERNESS, NO CREPITUS, NO PARADOXICAL MOVEMENT, NO RETRACTIONS. LUNGS: CLEAR, WELL-VENTILATED, SYMMETRIC, NO RALES, NO WHEEZING, NO RHONCHI, NO STRIDOR, GOOD BREATH SOUNDS BILATERALLY. HEART: REGULAR RATE, REGULAR RHYTHM, NO MURMUR, NO GALLOPS. VASCULAR: NO PERIPHERAL EDEMA. ABDOMEN: SOFT, POSITIVE BOWEL SOUNDS, NONDISTENDED, NO GUARDING, NONTENDER, NO REBOUND, NO MASSES NO HEPATOMEGALY, NO SPLENOMEGALY, NO LOCKHART'S SIGN, NO HERNIAS. RECTAL: DEFERRED. GENITAL: DEFERRED. NEUROLOGICAL: NORMAL SPEECH, GROSS MOTOR FUNCTION INTACT, GROSS SENSORY FUNCTION INTACT. MUSCULOSKELETAL: NECK NONTENDER, FULL RANGE OF MOTION, BACK NONTENDER, FULL RANGE OF MOTION. EXTREMITIES: NONTENDER, FULL RANGE OF MOTION. SKIN: COLOR PINK, DRY, NO TURGOR, NO RASH, NO LACERATIONS, NO ABRASIONS, NO CONTUSIONS. LYMPHATICS: DEFERRED. Results Laboratory and Microbiology Labs Reviewed?: Yes EKG/XRAY/US/CT/MRI Ultrasound Comment ULTRASOUND ABDOMINAL WALL- PERIPHERAL ABSCESS POSSIBLE PERIPHERAL VASCULARITY, COMPLEX AREA, 3 X 5 X 1 X 3 X 3.2 CM MDM MDM: DIFFERENTIAL DIAGNOSIS: DRAINAGE PROBLEM, POST SURGICAL EVALUATION RATIONALE: TESTS CONSIDERED AND ORDERED SECONDARY TO SHARED DECISION MAKING INCLUDE: PREVIOUS OUTSIDE RECORDS REVIEWED: OLD ER VISITS. RISK OF COMPLICATION AND/OR MORBIDITY OR MORTALITY OF PATIENT MANAGEMENT: NONE MEDICATIONS-PER MEDICATION RECONCILIATION NEED FOR HOSPITALIZATION: PATIENT DOES NOT MEET CRITERIA FOR HOSPITALIZATION. NEED FOR EMERGENCY MAJOR/MINOR SURGERY: NO PATIENT IS A 79-YEAR-OLD FEMALE COMING IN COMPLAINING OF DRAINAGE PROBLEMS. PER PATIENT SHE HAS A DRAIN PLACED AFTER SHE HAD UMBILICAL HERNIA REPAIR SHE STATED THAT OF YESTERDAY THE STENT DRAINAGE DECREASE IN NOTICED DRAINING FROM THE SIDES OF THE STENT. STENT WAS EVALUATED SUTURE WAS REMOVED STENT STARTED TO DRAIN IN HIS SUTURE WAS OBSTRUCTING WITH THE DRAIN. NEW SUTURE WAS PLACED. I DID ADVISED PATIENT NOT TO MANIPULATE THE DRAIN TOO MUCH IT WOULD HAS BEEN EVENTUALLY CHOKE THE STENT. PATIENT WILL BE DISCHARGED IN STABLE CONDITION AFTER DRAIN WAS EVALUATED AND FOUND TO BE WORKING. ED Course Orders Procedure Category Date Status Time Us Abd Limited/Abd US 05/11/25 Taken Wall 08:11 Vital Signs Date Time Temp Pulse Resp B/P (MAP) Pulse Ox O2 Delivery O2 Flow Rate FiO2 05/11/25 08:38 98.4 73 16 133/52 98 Room Air* 0 21 05/11/25 08:08 97.7 74 18 126/54 98 Room Air 0 Procedure Dictation JARVIS BEASLEY DRAIN OBSTRUCTED-CLEANING OF DRAIN AFTER SUTURE CHOKED DRAIN, SUTURE WAS REMOVED AND DRAINAGE CONTINUED. GOOD FLOW OF DRAIN SUTURE WAS PLACED I DID ADVISE PATIENT THE LEAN SPECIALIST NOT TO CLEANED TOO MUCH THIS WAS THREE PRESSURE ON THE SUTURE IN THE SUTURE WOULD TIGHTEN AND OBSTRUCT THE DRAINAGE. DX & DISP Disposition: Discharge Departure Impression: Primary Impression: Draining postoperative wound Additional Impression: Bleeding from Jarvis-Beasley drain Condition: Stable Additional Instructions: FOLLOW-UP WITH PRIMARY CARE PROVIDER IN 1 TO 2 DAYS. TAKE MEDICATIONS DIRECTED HERE IN THE EMERGENCY ROOM. OKAY TO CONTINUE HOME MEDICATIONS UNLESS OTHERWISE DISCUSSED DURING YOUR VISIT IN THE EMERGENCY ROOM TODAY. RETURN TO YOUR NEAREST EMERGENCY ROOM IF SYMPTOMS WORSEN OR IF THERE IS NO IMPROVEMENT. CALL 911 IF YOU NEED IMMEDIATE ASSISTANCE. TAKE TYLENOL [id number] NEEDED AND IF NO CONTRAINDICATIONS ARE PRESENT. INCREASE ORAL HYDRATION. A WOUND CULTURE OR URINE CULTURE WAS ORDERED HERE IN THE EMERGENCY ROOM DEPARTMENT PLEASE FOLLOW-UP WITH PRIMARY CARE PROVIDER AND ADVISE THEM TO GET REPORTS FROM OUR FACILITY. IF YOU HAD ANY ROSALINE WRAP/SPLINTS THAT WERE APPLIED HERE, PLEASE DO NOT REMOVE THEM UNTIL YOU SEE YOUR PRIMARY CARE OR SPECIALTY. REFERRALS: Referrals: SELF,REFERRAL (PCP) BERTHA PERRY MD Time of Disposition: 10:09 LALA FREEMAN MD May 11, 2025 08:37
--- NOTE | 2025-05-11 10:04 | HMCIMG ---
EXAM: US examination of the abdominal wall. CLINICAL HISTORY: wound eval TECHNIQUE: Real-time ultrasound examination performed with image documentation. COMPARISON: Compared with the CT dated 03/16 FINDINGS: Complex hypoechoic area with peripheral vascularity in the umbilical region of the anterior abdominal wall measuring 3.5 x 1.3 x 3.2 cm concerning for abscess. IMPRESSION: 1. Complex hypoechoic area in the umbilical region of the anterior abdominal wall measuring 3.5 x 1.3 x 3.2 cm, concerning for abscess. Recommend contrast-enhanced CT imaging for further evaluation. /Angela
[2025-05-11 10:20] VITALS: BP 143/68; PULSE 74; RESP 18; TEMP 98.4; O2SAT 97
--- NOTE | 2025-05-11 10:23 | NUR ---
PT MARGO DRAIN CLOTS REMOVED AND FLUSHED BY DR FREEMAN AT BEDSIDE, SITE RE-SUTURED. SITE RE DRESSED. MARGO DRAIN HAD 30 ML OUT PT.
--- NOTE | 2025-05-11 10:24 | NUR ---
PT AAOX 4 PT STABLE NO DISTRESS, PT INSTRUCTED TO KEEP F/U WITH DR. PERRY PLANNED. PT HAD HER APPT. ALREADY SET. PT GIVEN DRESSING SUPPLIES FOR HOME, NO IV AT THIS TIME. PT WALKED OUT TO ED LOBBY WITH SON AND WAS DRIVEN HOME.
== END 2025-05-11 10:33 | disposition home or self-care (01) ==
LOC: EDH 08:07
DX: K91.841 Postprocedural hemorrhage of a digestive system organ or structure following other procedure (principal); E11.9 Type 2 diabetes mellitus without complications; I10 Essential (primary) hypertension; Z79.82 Long term (current) use of aspirin; Z79.84 Long term (current) use of oral hypoglycemic drugs; Z79.899 Other long term (current) drug therapy; Z86.73 Personal history of transient ischemic attack (TIA), and cerebral infarction without residual deficits; Z90.49 Acquired absence of other specified parts of digestive tract
CPT/HCPCS: 76705; 99284